=== PATIENT | female | born 1955 | race Caucasian/White ===

== ENCOUNTER 2021-12-28 08:33 | Outpatient (CLI) | payer MEDICARE, BC, SELFPAY ==
[2021-12-28 13:41] LABS: Albumin* 4.6 g/dL (3.3-5.0)
[2021-12-28 13:44] LABS: Alanine Aminotransferase* 23 U/L (4-35); Alkaline Phosphatase* 109 U/L (40-150); Aspartate Amino Transferase* 28 U/L (12-35); Bilirubin Direct* 0.3 mg/dL (0.0-0.5); Bilirubin Total* 0.7 mg/dL (0.1-1.5); Total Protein* 7.5 g/dL (6.0-8.3)
[2021-12-28 13:59] LABS: Creatinine Urine 23.9 mg/dL
[2021-12-28 14:02] LABS: Microalbumin Creatinine Ratio 40 mg/g (0-30); Microalbumin Urine < 1 mg/dL
== END 2021-12-28 08:34 | disposition home or self-care (01) ==
PROVIDERS: PCP Physician Assistant Medical; Visit Provider Physician Assistant Medical
DX: I10 Essential (primary) hypertension (principal); R53.83 Other fatigue; R82.998 Other abnormal findings in urine; F41.9 Anxiety disorder, unspecified; E78.5 Hyperlipidemia, unspecified
CPT/HCPCS: 80076; 82043; 82570; 84443

== ENCOUNTER 2022-06-07 10:34 | Outpatient (CLI) | payer MEDICARE, BC, SELFPAY ==
--- NOTE | 2022-06-07 10:45 | CRLHL7_ITS ---
For Patients: As a result of the Cures Act, medical imaging exams and procedure reports are released immediately into your electronic medical record. You may view this report before your referring provider. If you have questions, please contact your health care provider. DIGITAL DIAGNOSTIC BILATERAL MAMMOGRAM USING TOMOSYNTHESIS AND COMPUTER-AIDED DETECTION RIGHT BREAST ULTRASOUND CLINICAL HISTORY: RIGHT breast lump. COMPARISON: None TECHNIQUE: Digital BILATERAL mammogram in four projections. Tomosynthesis and CAD utilized. Real-time ultrasound imaging of RIGHT breast with imaging documentation. BREAST COMPOSITION: There are areas of scattered fibroglandular density. FINDINGS: 3D spot compression CC/MLO mammogram images submitted bilaterally. Spiculated mass within the inferior RIGHT breast near the chest wall. Enlarged RIGHT axillary lymph node. No suspicious masses LEFT breast. Targeted RIGHT breast ultrasound performed. At 6 o`clock 9 cm from the nipple, there is an irregular and spiculated hypoechoic solid mass measuring 1.7 x 1.1 x 2.1 cm. Enlarged RIGHT axillary lymph node is present measuring 1.7 x 1.0 x 1.5 cm. IMPRESSION: Suspicious palpable mass RIGHT breast 6 o`clock 9 cm from the nipple measuring 2.1 cm. Suspicious enlarged RIGHT axillary lymph node measuring 1.7 cm. RECOMMENDATIONS: Ultrasound-guided core needle biopsy of both lesions is recommended. BI-RADS Category 5: Highly suggestive of malignancy. Results and recommendations discussed with the patient. A lay language report of this examination will be provided to the patient. Dictated by Moses Calzada MD @ 06/07/2022 11:39:40 AM jj/Dictated by: Moses Calzada MD @ 06/07/2022 11:39:00 AM (Electronically Signed)
--- NOTE | 2022-06-07 11:15 | CRLHL7_ITS ---
For Patients: As a result of the Cures Act, medical imaging exams and procedure reports are released immediately into your electronic medical record. You may view this report before your referring provider. If you have questions, please contact your health care provider. PLEASE SEE DIGITAL DIAGNOSTIC BILATERAL MAMMOGRAM PERFORMED SAME DAY CRL:duncan song/Dictated by: Moses Calzada MD @ 06/07/2022 11:39:00 AM (Electronically Signed)
== END 2022-06-07 10:35 | disposition home or self-care (01) ==
LOC: MAMMO 10:36
PROVIDERS: PCP Physician Assistant Medical; Visit Provider Emergency Medicine
DX: N63.15 Unspecified lump in the right breast, overlapping quadrants (principal)
CPT/HCPCS: 76642; 77066; G0279

== ENCOUNTER 2022-06-11 10:00 | Outpatient (CLI) | payer MEDICARE, BC, SELFPAY ==
--- NOTE | 2022-06-11 10:15 | CRLHL7_ITS ---
For Patients: As a result of the Century Cures Act, medical imaging exams and procedure reports are released immediately into your electronic medical record. You may view this report before your referring provider. If you have questions, please contact your health care provider. ULTRASOUND-GUIDED BREAST BIOPSY AND POST-BIOPSY DIGITAL MAMMOGRAM FOR BIOPSY MARKER PLACEMENT CLINICAL HISTORY: Suspicious RIGHT breast mass. COMPARISON STUDIES: 06/07/2022. TECHNIQUE: Real-time ultrasound with image documentation was used for targeting the breast lesion. Core biopsy specimens were obtained using a vacuum assisted needle device with a 10 gauge biopsy needle. Post-biopsy CC and ML digital mammograms were obtained to document position of the biopsy marker. CONSENT and TIME OUT: The procedure, risks, and alternatives were explained to the patient and a consent was signed. [place] Protocol was followed including pre-procedure verification that relevant information/documentation was available, reviewed and properly matched to the patient; consent accurate and complete; and equipment and supplies available. Time Out was conducted just prior to starting procedure to verify the four required elements: patient identity, correct side/site marked (if applicable), procedure, relevant images/results properly labeled and displayed (if applicable). PROCEDURE: The patient was positioned supine on the ultrasound table. The breast was prepped with ChloraPrep. 8 cc of 1 percent lidocaine was used for local anesthesia. Core samples were obtained. A sterile metal biopsy clip was placed percutaneously to jorge luis the lesion position within the breast. The specimens were placed in 10% formalin and sent to the pathology department. Pressure was held on the biopsy site until all bleeding subsided. The skin incision was closed with Steri-Strips. An ice pack was positioned over the biopsy site. Post-biopsy instructions were reviewed with the patient, and a written copy was given to her. LATERALITY: RIGHT breast. LESION: Spiculated irregular solid mass measuring 2.2 x 1.1 x 2.4 cm at 6 o`clock 9 cm from the nipple. SUSPICION FOR MALIGNANCY: High. NUMBER OF SAMPLES: 5. BIOPSY CLIP SHAPE: Oval. PROXIMITY OF CLIP TO TARGET: Within the lesion. IMPRESSION: Ultrasound-guided breast biopsy. When the pathology report is available, an addendum to this report will be made. ACR not applicable Dictated by Moses Calzada MD @ 06/11/2022 11:41:28 AM/harish MADIHA/Dictated by: Moses Calzada MD @ 06/11/2022 11:41:00 AM ----ADDENDUM---- Addendum: The final pathologic diagnosis is invasive ductal carcinoma with micropapillary features, Cambridge grade III of III, Cambridge score 8 of 9. A RIGHT axillary lymph node was also biopsied demonstrating metastatic carcinoma from the breast primary. Dictated by: Freddy Vergara MD @06/15/2022 10:47:26 AM Signed by:?Freddy Vergara MD @06/15/2022 11:37:30 AM (Electronically Signed)
--- NOTE | 2022-06-11 11:00 | CRLHL7_ITS ---
For Patients: As a result of the Century Cures Act, medical imaging exams and procedure reports are released immediately into your electronic medical record. You may view this report before your referring provider. If you have questions, please contact your health care provider. PLEASE SEE RIGHT ULTRASOUND-GUIDED BIOPSY OF SAME DAY. CRL:harish MADIHA/Dictated by: Moses Calzada MD @ 06/11/2022 11:41:00 AM (Electronically Signed)
--- NOTE | 2022-06-11 11:15 | CRLHL7_ITS ---
For Patients: As a result of the Century Cures Act, medical imaging exams and procedure reports are released immediately into your electronic medical record. You may view this report before your referring provider. If you have questions, please contact your health care provider. ULTRASOUND-GUIDED RIGHT AXILLARY LYMPH NODE BIOPSY CLINICAL HISTORY: Suspicious right axillary lymph node in the setting of a suspicious right breast mass. COMPARISON STUDIES: 06/07/2022 TECHNIQUE: Real-time ultrasound with image documentation was used for targeting the right axillary lesion. Core biopsy specimens were obtained using an automated gun with a 18-gauge biopsy needle. CONSENT and TIME OUT: The procedure, risks, and alternatives were explained to the patient and a consent was signed. [place] Protocol was followed including pre-procedure verification that relevant information/documentation was available, reviewed and properly matched to the patient; consent accurate and complete; and equipment and supplies available. Time Out was conducted just prior to starting procedure to verify the four required elements: patient identity, correct side/site marked (if applicable), procedure, relevant images/results properly labeled and displayed (if applicable). PROCEDURE: The patient was positioned supine on the ultrasound table. The right axilla was prepped with ChloraPrep. 8 cc of 1 percent lidocaine was used for local anesthesia. Core samples were obtained. A sterile metal biopsy clip was placed percutaneously to jorge luis the lesion position within the right axilla. The specimens were placed in 10% formalin and sent to the pathology department. Pressure was held on the biopsy site until all bleeding subsided. The skin incision was closed with Steri-Strips. An ice pack was positioned over the biopsy site. Post-biopsy instructions were reviewed with the patient, and a written copy was given to her. LATERALITY: Right axilla LESION: Enlarged hypoechoic lymph node measuring 1.7 x 1.0 x 1.5 cm with a thickened hypoechoic cortex. SUSPICION FOR MALIGNANCY: High NUMBER OF SAMPLES: 5 BIOPSY CLIP SHAPE: Oval PROXIMITY OF CLIP TO TARGET: Within the lesion IMPRESSION: Ultrasound-guided right axillary lymph node biopsy. When the pathology report is available, an addendum to this report will be made. ACR not applicable Dictated by Moses Hairston MD @ 06/11/2022 11:43:58 AM ----ADDENDUM---- MOSES HAIRSTON DICTATION 04/29/2023, 8:51 AM:?? Pathology is consistent with invasive ductal carcinoma.? This is concordant.? Appropriate action recommended.? (Electronically Signed)
== END 2022-06-11 10:01 | disposition home or self-care (01) ==
LOC: US 10:01
PROVIDERS: PCP Physician Assistant Medical; Visit Provider Emergency Medicine
DX: N63.10 Unspecified lump in the right breast, unspecified quadrant (principal); C50.911 Malignant neoplasm of unspecified site of right female breast; R92.8 Other abnormal and inconclusive findings on diagnostic imaging of breast
CPT/HCPCS: 19083; 38505; 76942; 77065; 88305; 88360; 88361; A4648; A4649

== ENCOUNTER 2022-06-17 12:44 | Outpatient (CLI) | payer MEDICARE, BC, SELFPAY ==
--- NOTE | 2022-06-17 13:00 | CRLHL7_ITS ---
For Patients: As a result of the Century Cures Act, medical imaging exams and procedure reports are released immediately into your electronic medical record. You may view this report before your referring provider. If you have questions, please contact your health care provider. BILATERAL BREAST MRI WITHOUT AND WITH GADOLINIUM, 06/17/2022 CLINICAL HISTORY: 66-year-old woman with a history of RIGHT breast IDC grade III. She presented with a palpable mass in the RIGHT breast and underwent RIGHT breast ultrasound-guided biopsy and RIGHT axillary lymph node biopsy showing metastatic disease. INDICATION FOR BREAST MRI: Staging of newly diagnosed breast cancer and screening of contralateral breast. Regional lymph nodes will also be assessed. COMPARISON STUDIES: Mammogram and ultrasound 06/07/2022. Ultrasound-guided biopsy 06/11/2022. CONTRAST: 15 cc Dotarem. TECHNIQUE: The patient was positioned prone using a breast coil. Multiple imaging sequences were obtained using 1-1.5 mm thick slices with no gap. The image sequences include T2-weighted STIR in the axial plane, T1-weighted nonfat-saturated gradient echo in the axial plane, pre- and post-contrast T1-weighted FLASH 3D with fat suppression in the axial plane, and T1-weighted FLASH high-resolution 3D with fat suppression in the sagittal plane. Image post-processing was performed on a [employer] [facility] [employer] workstation. Complex 3D rendering including maximum intensity projections (MIPS) and volumetric renderings were obtained to optimize visualization of the extent of pathology and relationship to the nipple, skin, and chest wall. This aids in determining feasibility of breast conservation surgery. Subtraction, multiplanar reconstruction, mean curve determination, and angiogenesis mapping were also performed. The study was technically adequate. FINDINGS: Amount of Fibroglandular Tissue: Scattered fibroglandular tissue. Breast Background Enhancement: Mild. RIGHT Breast: 6 o`clock, posterior depth irregular mass enhancement measuring 2.3 x 1.9 x 1.3 cm. This corresponds to the biopsy-proven malignancy. The mass is at the inframammary fold region and closely abuts/may involve the dermis. No evidence for chest wall involvement. No suspicious enhancement for malignancy elsewhere RIGHT breast. LEFT Breast: No suspicious enhancement for malignancy. Lymph Nodes: There are three clumped lymph nodes in the anterior RIGHT axillary region with thickened cortices, one of which was biopsied positive for metastatic disease. No suspicious lymph nodes LEFT axilla. IMPRESSIONS AND RECOMMENDATIONS: 1. Irregular mass enhancement RIGHT breast 6 o`clock at the inframammary fold region measures 2.3 cm in greatest dimension and may involve dermis. No evidence for malignancy elsewhere RIGHT breast or contralateral LEFT breast. 2. Known RIGHT axillary metastatic involvement. 3. Surgical/oncologic management directed by Dr. Lowery. BI-RADS Category 6: Known Biopsy-Proven Malignancy Nga Robin M.D. Breast/Body Radiologist [employer] Transcribed: 9:16 a.m. [email or web address] jj/Dictated by: Nga Robin MD @ 06/18/2022 9:17:00 AM (Electronically Signed)
== END 2022-06-17 12:45 | disposition home or self-care (01) ==
PROVIDERS: PCP Emergency Medicine; Visit Provider Surgery
DX: C50.911 Malignant neoplasm of unspecified site of right female breast (principal); C77.3 Secondary and unspecified malignant neoplasm of axilla and upper limb lymph nodes
CPT/HCPCS: 77049; A9575

== ENCOUNTER 2022-06-30 09:22 | Outpatient (CLI) | payer MEDICARE, BC, SELFPAY ==
[2022-06-30 13:35] LABS: Chloride* 109 mmol/L (96-114); Potassium* 4.7 mmol/L (3.6-5.1); Sodium* 143 mmol/L (135-149)
[2022-06-30 13:38] LABS: Blood Urea Nitrogen* 14 mg/dL (7-30); Carbon Dioxide* 28 mmol/L (20-32); Creatinine* 0.8 mg/dL (0.5-1.5); Estimated Glomerular Filt Rate 81 ml/min; Glucose* 111 mg/dL (60-115)
[2022-06-30 13:39] LABS: Calcium* 9.7 mg/dL (8.4-10.6)
== END 2022-06-30 09:23 | disposition home or self-care (01) ==
LOC: LKVREF 09:23
PROVIDERS: PCP Emergency Medicine; Visit Provider Emergency Medicine
DX: Z01.818 Encounter for other preprocedural examination (principal)
CPT/HCPCS: 80048

== ENCOUNTER 2022-07-02 10:37 | Outpatient (CLI) | payer MEDICARE, BC, SELFPAY | END 2022-07-02 10:38 | disposition home or self-care (01) | PROVIDERS: PCP Emergency Medicine; Visit Provider Nurse Practitioner Family | DX: I10 Essential (primary) hypertension (principal) | CPT/HCPCS: 93306 ==

== ENCOUNTER 2022-07-05 07:44 | Day surgery (SDC) | payer MEDICARE, BC, SELFPAY ==
--- NOTE | 2022-07-01 10:21 | ONC.NURNOTE ---
Received phone call from PET in [place] asking about how quickly patients PET scan needs to be read. Discussed patient with [facility] and it was determined and scan needs to be read STAT so that results can be discussed with Dr. Palacios on Tuesday to come up with a treatment plan. PET was notified, they will have sent by 0800 on 07/05/2022.
[2022-07-05] MEDS: LACTATED RINGERS 1000 ML 1,000 ML 100 ML IV ×2 (07:45→11:29)
[2022-07-05 07:58] VITALS: BMI 33.0
[2022-07-05 08:07] VITALS: BP 139/82; PULSE 78; RESP 18; TEMP 36.9; O2SAT 97
[2022-07-05] MEDS: SODIUM CHLORIDE 0.9 % (FLUSH) 10 ML SYRINGE IVF (08:24)
--- NOTE | 2022-07-05 09:15 | CRLHL7_ITS ---
For Patients: As a result of the Century Cures Act, medical imaging exams and procedure reports are released immediately into your electronic medical record. You may view this report before your referring provider. If you have questions, please contact your health care provider. Indication: Intraop Nina-Cath insertion Technique: Two fluoroscopic images of the chest. Fluoroscopic time 1 minute 32.6 seconds. IMPRESSION: Fluoroscopic guidance for Port-A-Cath placement. Dictated by Moses Calzada MD @ 07/05/2022 11:24:03 AM (Electronically Signed)
--- NOTE | 2022-07-05 09:19 | CRLHL7_ITS ---
For Patients: As a result of the Century Cures Act, medical imaging exams and procedure reports are released immediately into your electronic medical record. You may view this report before your referring provider. If you have questions, please contact your health care provider. Indication: post-op Nina-Cath Technique: Chest one view IMPRESSION: Right-sided Port-A-Cath is present in the mid SVC. No pneumothorax. Dictated by Moses Calzada MD @ 07/05/2022 11:35:40 AM (Electronically Signed)
[2022-07-05] MEDS: CEFAZOLIN 2 GM INJ IVP (09:30)
[2022-07-05] MEDS: BUPIVACAINE 0.25% 30 ML INJECTION (09:50)
[2022-07-05] MEDS: 0.9% SODIUM CHL 50 ML VIAL INJECTION (10:00)
[2022-07-05] MEDS: HEPARIN 500 UNIT/5 ML SYRINGE IVF (10:15)
--- NOTE | 2022-07-05 10:31 | P.GSOP_ITS ---
Operative Note Date of procedure: 07/05/22 Pre-op diagnosis: 1. Metastatic right breast invasive ductal carcinoma. Post-op diagnosis: Same Type of Procedure: 1. Right internal jugular Port-A-Cath placement under ultrasound and fluoroscopy guidance. 2. Unsuccessful attempt at placing left internal jugular Port-A-Cath. Indications: 66-year-old female was seen in clinic with a newly diagnosed right breast invasive ductal carcinoma with metastases to the right axillary lymph node. Patient's tumor was grade 3 of 3 with angiolymphatic invasion and micropapillary features, ER/ AL positive and HER2 positive. Neoadjuvant chemotherapy was recommended, and patient was referred to surgery for Port-A-Cath placement. Patient had a partial thyroidectomy but no other procedures done on her neck. The procedure was discussed in detail. The risks associated procedure including infection, bleeding, and pneumothorax were discussed with the patient, and she agreed to proceed. Procedure Description: After discussing the risks and benefits of the procedure, the patient signed informed consent.? The operative site was marked and the patient was brought to the operating room and placed on the operating table in supine position.? Care was taken to pad the patient's pressure points.?? The patient was then sedatred by anesthesia.?? The operative site was then prepped and draped in the usual sterile fashion.? A time-out was then performed. Ultrasound was brought on to the field and The left internal jugular vein was assessed. the vein was found to be somewhat small and intimately adherent to the carotid artery. local anesthetic was injected at the proposed surgical site, the skin was incised with a scalpel. The needle was advanced into the left internal jugular vein but the wire did not thread easily. After at least 3 attempts at placing the wire, fluoroscopy was brought onto the field and the w ana was noted to be coiled in the left neck. With fluoroscopy guidance I was not able to advance the wire into the chest. I elected to proceed with Port-A-Cath placement on the right side. Ultrasound was then brought onto the field and the right internal jugular vein was identified. This was found to be large and easily compressible. The base of the neck directly overlying the internal jugular vein was then anesthetized with 1% lidocaine and 0.25% Marcaine mixture, and an introducer needle was inserted into the internal jugular vein using ultrasound guidance. Entry into the vein was confirmed by the presence of dark, nonpulsatile blood. A guide wire was advanced through the needle. The introducer needle was removed, leaving the wire in place. Fluoroscopy was brought onto the field and used to confirm the passage of the wire through the superior vena cava and into the Right ventricle. Lidocaine was then used to infiltrate the port skin site, along with the proposed tunneling tract. A 3 cm incision was made at the site of the port pocket and subcutaneous tissue was dissected down using electrocautery. Subcutaneous pocket was created with blunt dissection and electrocautery. The catheter was advanced through the subcutaneous tissue using a tunneling trocar, exiting the incision at the base of the neck. The trocar was then disconnected. Fluoroscopy was again brought on to the field and the internal jugular vein and adjacent subcutaneous tissue was dilated with a pre-split introducer sheath in place. The wire was removed and the catheter was inserted into the introducer sheath. As the catheter was advanced, the sheath was split and divided, removing the sheath as the catheter was advanced into place. Fluoroscopy was again brought on to the field and the catheter position was examined. The entire course of the catheter was then viewed, and catheter was pulled back under direct visualization to ensure that the tip is in the SVC. The port was connected to the catheter tip and placed into previously created pocket. Prolene was used to place anchoring port sutures and the port was then secured in the pocket. The flow through the catheter was checked with a syringe, and found to be excellent. Both incisions at the base of the neck was then closed with a single interrupted 4-0 monocryl stitch and dressed with a Steri-Strip and a sterile bandage. Subdermal layer at the port insertion site was re-approximated with interrupted 3-0 vicryl stitches and skin over the port was closed with 4-0 monocryl using subcuticular stitch. Roberts needle was inserted through the skin into the port and the port was flushed with heparinized saline. The needle was then removed.Steri strips, Telfa and Tegaderm was applied over the incision. The patient was then roused and brought to same day surgery in satisfactory condition. Sponge and needle counts were correct at the end of the procedure. Post procedure CXR was ordered to be done in same day surgery. ? Sterile dressings were then applied. ? The patient was then woken and transported to the recovery area in stable condition. ? The patient tolerated the procedure well. Anesthesia: MAC and local Surgeon: Brian Lowery MD Condition: stable Disposition: same day
--- NOTE | 2022-07-05 10:40 | W.ANESCHARGE ---
Anesthesia Charges Start Date/Time Anesthesia Start Date: 07/05/22 Anesthesia Start Time: 09:22 Stop Date/Time Anesthesia Stop Date: 07/05/22 Anesthesia Stop Time: 10:34
[2022-07-05 10:42] VITALS: BP 116/69; PULSE 78; RESP 18; TEMP 36.4; O2SAT 98
[2022-07-05 10:59] VITALS: BP 116/67; PULSE 72; RESP 18; O2SAT 98
--- NOTE | 2022-07-05 11:01 | W.ANESCHARGE ---
Anesthesia Charges Start Date/Time Anesthesia Start Date: 07/05/22 Anesthesia Start Time: 09:22 Stop Date/Time Anesthesia Stop Date: 07/05/22 Anesthesia Stop Time: 10:34
--- NOTE | 2022-07-05 11:34 | SUR.PHASEII ---
Dr. Lowery noted xray to be good, pt may now eat
== END 2022-07-05 11:30 | disposition home or self-care (01) ==
PROVIDERS: PCP Emergency Medicine; Visit Provider Surgery
PROC: (CPT 36561; principal; 2022-07-05 09:15)
DX: Z45.2 Encounter for adjustment and management of vascular access device (principal); C50.911 Malignant neoplasm of unspecified site of right female breast; C77.3 Secondary and unspecified malignant neoplasm of axilla and upper limb lymph nodes; Z17.0 Estrogen receptor positive status [ER+]
CPT/HCPCS: 36561; 00532; 71045; 76000; C1788; J0690; J1642; J2250; J2704; J3010; J3490; J7120

== ENCOUNTER 2022-08-02 10:33 | Outpatient (CLI) | payer MEDICARE, BC, SELFPAY | END 2022-08-02 10:34 | disposition home or self-care (01) | LOC: NFLDREF 08-04 11:32 | PROVIDERS: PCP Emergency Medicine; Referring Provider Emergency Medicine; Visit Provider Internal Medicine Hematology & Oncology | DX: R19.7 Diarrhea, unspecified (principal) | CPT/HCPCS: 87493 ==

== ENCOUNTER 2022-08-27 12:44 | Outpatient (CLI) | payer MEDICARE, BC, SELFPAY | END 2022-08-27 12:45 | disposition home or self-care (01) | PROVIDERS: PCP Emergency Medicine; Visit Provider Physician Assistant | DX: Z51.81 Encounter for therapeutic drug level monitoring (principal); Z79.899 Other long term (current) drug therapy; C50.912 Malignant neoplasm of unspecified site of left female breast | CPT/HCPCS: 93306 ==

== ENCOUNTER 2022-11-18 09:39 | Day surgery (SDC) | payer MEDICARE, BC, SELFPAY ==
[2022-11-18 10:30] VITALS: BP 141/87; PULSE 91; RESP 16; O2SAT 99; BMI 26.4
[2022-11-18] MEDS: SODIUM CHLORIDE 0.9 % (FLUSH) 10 ML SYRINGE IVF (10:30)
--- NOTE | 2022-11-18 11:00 | CRLHL7_ITS ---
For Patients: As a result of the Century Cures Act, medical imaging exams and procedure reports are released immediately into your electronic medical record. You may view this report before your referring provider. If you have questions, please contact your health care provider. BREAST WIRE LOCALIZATION USING ULTRASOUND GUIDANCE CLINICAL HISTORY: RIGHT breast cancer, status post adjuvant chemotherapy, now presents for lumpectomy. LATERALITY: RIGHT breast. LESION: Hypoechoic mass containing clip 6 o`clock RIGHT breast. LOCALIZATION WIRE: [place] hookwire. TECHNIQUE: The localization wire was placed using real-time ultrasound guidance with image documentation. Cranial-caudal and medial-lateral digital mammograms were obtained after localization wire placement. CONSENT and TIME OUT: The procedure, risks, and alternatives were explained to the patient and a consent was signed. [place] Protocol was followed including pre-procedure verification that relevant information/documentation was available, reviewed and properly matched to the patient; consent accurate and complete; and equipment and supplies available. Time Out was conducted just prior to starting procedure to verify the four required elements: patient identity, correct side/site marked (if applicable), procedure, relevant images/results properly labeled and displayed (if applicable). PROCEDURE: The skin was prepped with ChloraPrep and 8 cc of 1% lidocaine was injected for local anesthesia. The localization wire was placed within or near the targeted breast lesion using ultrasound guidance. The patient tolerated the procedure well. PROXIMITY OF WIRE TO LESION: Within the lesion. IMPRESSION: Successful breast wire localization. ACR not applicable Dictated by Moses Calzada MD @ 11/18/2022 1:04:45 PM jj/Dictated by: Moses Calzada MD @ 11/18/2022 1:04:00 PM (Electronically Signed)
--- NOTE | 2022-11-18 11:00 | CRLHL7_ITS ---
For Patients: As a result of the 21st Century Cures Act, medical imaging exams and procedure reports are released immediately into your electronic medical record. You may view this report before your referring provider. If you have questions, please contact your health care provider. INDICATION: 67-year-old female. Right-sided breast cancer. Injection for sentinel lymph node scintigraphy. PROCEDURE: Informed consent was obtained by the on-site staff. The benefits and risks of the procedure were discussed with the patient. The patient agreed to proceed. Utilizing sterile technique, 780 microcuries of technetium-filtered sulfur colloid was injected intradermally superolateral to the right nipple-areolar complex. The patient tolerated the injection well. No immediate complications documented. No subsequent imaging. IMPRESSION: Technically successful right breast injection for sentinel lymph node scintigraphy. Dictated by Freddy Vergara MD @ 11/18/2022 3:19:17 PM (Electronically Signed)
[2022-11-18 11:02] LABS: Potassium* 3.8 mmol/L (3.6-5.1)
--- NOTE | 2022-11-18 11:15 | CRLHL7_ITS ---
For Patients: As a result of the Cures Act, medical imaging exams and procedure reports are released immediately into your electronic medical record. You may view this report before your referring provider. If you have questions, please contact your health care provider. RIGHT AXILLARY LYMPH NODE WIRE LOCALIZATION USING ULTRASOUND GUIDANCE CLINICAL HISTORY: RIGHT breast cancer, status post adjuvant chemotherapy. Presents for surgical treatment. LATERALITY: RIGHT axilla. LESION: Biopsy-proven RIGHT axillary lymph node containing clip. LOCALIZATION WIRE: [place] hookwire. TECHNIQUE: The localization wire was placed using real-time ultrasound guidance with image documentation. Cranial-caudal and medial-lateral digital mammograms were obtained after localization wire placement. CONSENT and TIME OUT: The procedure, risks, and alternatives were explained to the patient and a consent was signed. [place] Protocol was followed including pre-procedure verification that relevant information/documentation was available, reviewed and properly matched to the patient; consent accurate and complete; and equipment and supplies available. Time Out was conducted just prior to starting procedure to verify the four required elements: patient identity, correct side/site marked (if applicable), procedure, relevant images/results properly labeled and displayed (if applicable). PROCEDURE: The skin was prepped with ChloraPrep and 6 cc of 1% lidocaine was injected for local anesthesia. The localization wire was placed within or near the targeted right axillary lymph node lesion using ultrasound guidance. The patient tolerated the procedure well. PROXIMITY OF WIRE TO LESION: Within the lesion. IMPRESSION: Successful RIGHT axillary lymph node wire localization. ACR not applicable Dictated by Moses Calzada MD @ 11/18/2022 1:23:26 PM jj/Dictated by: Moses Calzada MD @ 11/18/2022 1:23:00 PM (Electronically Signed)
--- NOTE | 2022-11-18 11:37 | W.ANESCHARGE ---
Anesthesia Charges Start Date/Time Anesthesia Start Date: 11/18/22 Anesthesia Start Time: 12:02 Stop Date/Time Anesthesia Stop Date: 11/18/22 Anesthesia Stop Time: 14:35
[2022-11-18] MEDS: LACTATED RINGERS 1000 ML 1,000 ML 100 ML IV (11:52)
--- NOTE | 2022-11-18 12:00 | CRLHL7_ITS ---
For Patients: As a result of the Cures Act, medical imaging exams and procedure reports are released immediately into your electronic medical record. You may view this report before your referring provider. If you have questions, please contact your health care provider. PLEASE SEE RIGHT BREAST AND RIGHT LYMPH NODE WIRE LOCALIZATIONS PERFORMED SAME DAY CRL:duncan song/Dictated by: Moses Calzada MD @ 11/18/2022 1:04:00 PM (Electronically Signed)
[2022-11-18] MEDS: ISOSULFAN BLUE 5 ML VIAL INJECTION (12:08)
[2022-11-18] MEDS: CEFAZOLIN 2 GM INJ IVP (12:12)
[2022-11-18] MEDS: BUPIVACAINE 0.25% 30 ML INJECTION (12:22)
--- NOTE | 2022-11-18 12:30 | MM_ITS ---
Patient: LYNNETTE GABRIEL Facility:?[facility] Patient ID:?[id number] Site Patient ID:?[id number]. Site :?[id number] Study:?XRay-Breast Right SPECIMEN-11/18/2022 1:29:00 PM Ordering Physician:?Sebastián Torres Final Report: ----- ADDENDUM ----- CLINICAL HISTORY: Lumpectomy COMPARISON: Earlier today FINDINGS: Specimen contains the biopsied mass, the biopsy clip and the localization wire. IMPRESSION: Specimen contains the biopsied mass and clip/wire. ACR not applicable. Dictated by Moses Calzada MD @ Nov 18 2022 2:22PM Signed by:?Moses Calzada MD @11/18/2022 8:34:30 PM
--- NOTE | 2022-11-18 12:48 | MM_ITS ---
Patient: LYNNETTE GABRIEL Facility:?[facility] Patient ID:?[id number] Site Patient ID:?[id number]. Site :?[id number] Study:?XRay-Breast Right SPECIMEN (NODE)-11/18/2022 1:31:35 PM Ordering Physician:Virgen Torres Final Report: ----- ADDENDUM ----- CLINICAL HISTORY: Right axillary lymph node dissection COMPARISON: Earlier today FINDINGS: Specimen contains the biopsied lymph node along with the biopsy clip and localization wire. IMPRESSION: Specimen contains the biopsied lesion, clip and wire. ACR not applicable. Dictated by Moses Calzada MD @ Nov 18 2022 2:22PM Signed by:?Moses Calzada MD @11/18/2022 8:36:13 PM (Electronic Signature)
--- NOTE | 2022-11-18 14:29 | P.GSOP_ITS ---
Operative Note Date of procedure: 11/18/22 Pre-op diagnosis: 1. 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 Post-op diagnosis: Same Type of Procedure: 1. Right wire localized lumpectomy. 2. Right axillary sentinel node biopsy. 3. Excision of wire localized previously biopsied right axillary lymph node. Indications: 67-year-old female was seen in clinic after she completed neoadjuvant chemotherapy for metastatic right breast invasive ductal carcinoma. Her initial images showed 1.7 x 2.1 cm tumor in the right breast at 6:00 9 cm from the nipple. Pathology showed the tumor to have micro papillary features and was grade 3 of 3 with angiolymphatic invasion and grade 3 DCIS, ER/ MI positive and HER2 positive. Patient also had multiple enlarged right axillary lymph nodes and biopsy of one of the nodes came back with metastases to the lymph node. Patient then underwent neoadjuvant chemotherapy. She had a great response with no tumor palpable in her breast and no palpable right axillary lymphadenopathy. Given her history and her clinical exam, surgical options of lumpectomy versus mastectomy were discussed with the patient, and patient elected to proceed with lumpectomy. The procedure was discussed in detail. The risks associated procedure including infection, bleeding, the need for additional re-excision is, lymphedema, and possible axillary node dissection were all discussed with the patient, and she agreed to proceed. Procedure Description: Radioactive tracer for sentinel node biopsy was personally injected by me in same-day surgery at least 1 hour prior to patient's procedure. After discussing the risks and benefits of the procedure, the patient signed informed consent.? The operative site was marked and the patient was brought to the operating room and placed on the operating table in supine position.? Care was taken to pad the patient's pressure points.?? The patient was then sedated by anesthesia.?? The operative site was then prepped and draped in the usual sterile fashion.? A time-out was then performed. Pre-operative mammographic films taken after wire localization were reviewed. The mixture of Lidocaine and Marcaine was used as local anesthetic and was injected at the site of the incision. The lumpectomy was performed by making an in from mammary horizontal incision at 6:00 a.m.. This was done with a scalpel. Dermis and subcutaneous fat were divided with cautery.?Subcutaneous skin flaps were developed until the wire was encountered.? The wire was pulled into the surgical field. The breast tissue around the wire was then excised in a cylinder like fashion following the course of the wire using cautery.? This was done with frequent palpation of the wire.? The specimen was then excised making sure that the wire was still in the specimen. Margins of the specimen were inked and the specimen was then sent to mammography first to confirm presence of the wire and the clip and to pathology afterwards for gross margins. Mammography confirmed presence of the clip. Pathologist reviewed the specimen and the tumor Bed was identified with no residual tumor. All margins were negative with the closest posterior margin being 1 mm. We then proceeded with the right axillary sentinel node biopsy And excision of the right axillary wire localized node. Four ml (milliliters) of Lymphazurin blue was personally injected by de near The right nipple for sentinel lymph node identification. A [place] counter was brought onto the field in the Right axilla to identify the best area for the sentinel node biopsy. An oblique skin incision was then made over that area. Subcutaneous tissues were dissected with electrocautery. A green lymph node was identified and appeared to have radioactive signal. this node was also the same as wire localized node. The node was then removed with the wire and sent to mammography to confirm presence of the clip. This was confirmed. This was considered to be sentinel lymph node #1 with a count of 825. Axillary syl tissue was examined again with the [place] counter and Additional nodes that were considered sentinel lymph nodes were identified and excised. A total of 7 sentinel lymph nodes were excised with cautery( The first node considered to be wire localized node with a count of 825). The sentinel nodes had counter numbers of 800, 792, 805, 321, to 66, and 205. The last sentinel lymph node was minimally enlarged but was soft to palpation. Additional lymphoid tissue that was excised during this dissection was removed but had no radioactive signal. This was sent to pathology in permanent section as additional syl ti ssue. pathologist reviewed all the nodes with frozen section and all nodes appeared to be benign. Given the number of sentinel nodes identified and removed, I elected to place right axillary drain. Local anesthetic was injected inferior to the axillary incision. The skin incision was made with a scalpel. A 15 round Jarrett drain was then advanced through this stab incision into the right axilla. The drain was secured in place with nylon. The right axillary incision was then irrigated with normal saline. Additional local anesthetic was injected at the surgical site. The deltopectoral fascia was then reapproximated with interrupted Vicryl sutures. Dermis was reapproximated with interrupted Vicryl sutures. The skin was closed with a running 4-0 Monocryl stitch. The inframammary incision was then examined and hemostasis was achieved with cautery. Vascular clips were placed in the breast tissue to jorge luis the lumpectomy cavity. The incision was then reapproximated with Vicryl sutures. The skin was closed with a running 4-0 Monocryl stitch. Sterile dressings were then applied. ? The patient was then woken and transported to the recovery area in stable condition. ? The patient tolerated the procedure well. Findings: Lumpectomy cavity was identified with no residual tumor. Multiple sentinel nodes were removed and were negative on frozen section. Anesthesia: MAC and local Surgeon: Brian Lowery MD Estimated blood loss (mL): 10 Additional Specimen Information: 1. Right lumpectomy. 2. [place] lymph node 1. 3. [place] lymph node 2. 4. [place] lymph node 3. 5. [place] lymph node 4. 6. [place] lymph node 5. 7. [place] lymph node 6. 8. [place] lymph node 7. 9. Additional right axillary lymphoid tissue. Condition: stable Disposition: same day
[2022-11-18 14:33] VITALS: BP 122/71; PULSE 67; RESP 16; TEMP 36.6; O2SAT 94
--- NOTE | 2022-11-18 14:41 | W.ANESCHARGE ---
Anesthesia Charges Start Date/Time Anesthesia Start Date: 11/18/22 Anesthesia Start Time: 12:02 Stop Date/Time Anesthesia Stop Date: 11/18/22 Anesthesia Stop Time: 14:35
[2022-11-18 14:45] VITALS: BP 125/70; PULSE 50; RESP 15; O2SAT 95
[2022-11-18 15:00] VITALS: BP 124/73; PULSE 46; RESP 16; O2SAT 94
[2022-11-18 15:15] VITALS: BP 123/75; PULSE 52; RESP 16; O2SAT 95
[2022-11-18 15:30] VITALS: BP 124/76; PULSE 55; RESP 16; TEMP 36.5; O2SAT 95
== END 2022-11-18 15:50 | disposition home or self-care (01) ==
PROVIDERS: PCP Emergency Medicine; Visit Provider Surgery
PROC: (CPT 19302; principal; 2022-11-18 12:30)
DX: C50.811 Malignant neoplasm of overlapping sites of right female breast (principal); C77.3 Secondary and unspecified malignant neoplasm of axilla and upper limb lymph nodes; Z17.0 Estrogen receptor positive status [ER+]
CPT/HCPCS: 19302; 01610; 10035; 19285; 36415; 38792; 77065; 84132; 88307; 88341; 88342; A9541; C1769; J0690; J1200; J2250; J2405; J2704; J3010; J3490; J7120

== ENCOUNTER 2022-12-06 08:15 | Outpatient (RCR) | payer MEDICARE, BC, SELFPAY ==
--- NOTE | 2022-07-06 15:57 | ONC.NURNOTE ---
I met with patient and her Yehuda for chemotherapy teaching. We reviewed the contents of the chemotherapy binder. Discussed side effects of treatment as well as what symptoms to report and how to report concerns. Patient declined a social service consultation for a distress score of 7. Patient identified her emotional problems as manageable and feels that they will lessen once treatment starts and she knows what to expect. Shayy states she has a good support system. Consent for chemotherapy obtained. Patient denies any further questions or concerns and verbalizes understanding of plan to start treatment 07/08.
--- NOTE | 2022-07-07 11:47 | URNOTE ---
Request received for authorization for Taxotere ([id number]), Cytoxan (J9070), Herceptin (J9355), Perjeta (J9306), Neulasta (J2506), Carboplatin (J9045). Prior authorization is not required as services are based on medical necessity and follow Medicare guidelines.
[2022-07-08 08:33] VITALS: BP 114/74; PULSE 93; RESP 16; TEMP 36.6; O2SAT 97
--- NOTE | 2022-07-08 08:45 | ONC.NURNOTE ---
Pet CT results reviewed with Dr. Caba, who reviewed with his breast oncologist colleagues, regarding the adrenal gland asymmetry which was determined to be non-specific. Proceed with neoadjuvant chemotherapy as planned. Reviewed with pt and her today at 1st chemo appt.
[2022-07-08 08:53] LABS: Basophils Percent Auto 0.1 % (0.0-3.0); Hematocrit 42.2 % (33.0-51.0); Hemoglobin* 14.9 gm/dL (12.0-16.0); Immature Granulocytes Pct Auto 0.2 %; Lymphocytes Percent Auto 10.2 % (20-44); Mean Corpuscular HGB Conc 35 gm/dL (32-36); Mean Corpuscular Hemoglobin 30 pg (26-34); Mean Corpuscular Volume 86 fL (80-100); Neutrophils Percent Auto 82.5 % (42.0-72.0); Platelet Count* 264 K/uL (140-440); RDW Coefficient of Variation % 12.2 % (11.5-15.5); Red Blood Count 4.92 m/uL (4.00-5.20); White Blood Count* 11.74 K/uL (4.50-11.00)
[2022-07-08 08:54] LABS: Slide Review Reflex No
[2022-07-08 09:05] LABS: Albumin* 4.7 g/dL (3.3-5.0); Chloride* 109 mmol/L (96-114); Sodium* 143 mmol/L (135-149)
[2022-07-08 09:08] LABS: Alanine Aminotransferase* 25 U/L (4-35); Alkaline Phosphatase* 80 U/L (40-150); Aspartate Amino Transferase* 24 U/L (12-35); Bilirubin Total* 0.9 mg/dL (0.1-1.5); Blood Urea Nitrogen* 15 mg/dL (7-30); Carbon Dioxide* 25 mmol/L (20-32); Creatinine* 0.7 mg/dL (0.5-1.5); Estimated Glomerular Filt Rate 95 ml/min; Glucose* 101 mg/dL (60-115); Total Protein* 7.8 g/dL (6.0-8.3)
[2022-07-08 09:09] LABS: Calcium* 9.9 mg/dL (8.4-10.6)
[2022-07-08] MEDS: PALONOSETRON 0.25 MG/5 ML inj IV (09:48)
[2022-07-08] MEDS: dexAMETHasone 10 MG in 0.9 % SODIUM CHLORIDE 100 ml 100 ML 404 MG IVPB (09:48)
[2022-07-08] MEDS: FOSAPREPITANT 150 MG inj 150 MG in 0.9 % SODIUM CHLORIDE 250 ml 250 ML 780 MG IVPB (10:13)
[2022-07-08] MEDS: PERTUZUMAB 840 MG, TUBING SECONDARY 1 EACH in 0.9 % SODIUM CHLORIDE 250 ml 250 ML 278 MG IV (12:36)
--- NOTE | 2022-07-09 09:37 | ONC.NURNOTE ---
Call to patient in follow up to her new start chemotherapy. Patient feels that overall she is doing well. She had a frontal headache last evening which I explained was likely from the anti-nausea medications we gave her. She had a restless night of sleep and reports feeling a bit queasy this morning. She is eating and drinking and taking her anti-nausea medications as recommended. Patient denies any questions or concerns.
--- NOTE | 2022-07-22 17:44 | ONC.NURNOTE ---
Spoke with pt regarding upcoming appts and she reported she's been having difficulty with side effects from chemo. She reports feeling well the first few days after chemo (), then felt poorly beginning Tuesday through this last week, especially nausea and diarrhea. Nausea: Her nausea was persistent the last 9 days despite Compazine TID; she has Zofran at home but was not sure about how to implement. She notes all fluids taste bad, contributing to her nausea, but she feels she has remained hydrated. She reports 3-4 emeses during that week. She is still eating soda crackers regularly. She asks about Ativan, as a nurse her in her family suggested. Reviewed alternating Compazine/Ondansetron; plan to review home antiemetics at upcoming f/u appt. Diarrhea: Pt also reports diarrhea in the same timeframe, noting 6-8 explosive, watery stools/day x ~9 days which has now improved to 1 watery stool/day. She was taking Immodium 2-3 tabs/day the first few days and then ceased, feeling it wasn't helping. Reviewed that she can take more Imodium per day if needed; plan to review home diarrhea management plan at upcoming f/u appt. Rash: Pt reports today having a red patchy rash in her bilateral groin/flank area; it is not itchy. She describes it as giraffe spots in pattern and notes it is a fading red. She thinks in a recent shower she may not have rinsed her soap off fully; reinforced that her skin may be more sensitive while on chemo. She is not usually prone to rashes, so this is new. Pt to monitor and notify us if worsening. Reinforced importance of notifying [facility] of side effects/issues. Pt acknowledges and notes that she wanted to see if she could manage it. Reinforced that there are more options for nausea and bowel management and that we anticipate more effective control of her symptoms. Plan to review with Med Onc next week at visit prior to next cycle.
--- NOTE | 2022-07-23 13:27 | URNOTE ---
Request received for authorization for Emend ([id number]) and Aloxi ([id number]).?Prior authorization is not required?as services are based on medical necessity and follow Medicare guidelines.
[2022-07-29 08:08] LABS: Basophils Percent Auto 0.2 % (0.0-3.0); Hematocrit 37.5 % (33.0-51.0); Hemoglobin* 13.4 gm/dL (12.0-16.0); Immature Granulocytes Pct Auto 0.6 %; Lymphocytes Percent Auto 6.4 % (20-44); Mean Corpuscular HGB Conc 36 gm/dL (32-36); Mean Corpuscular Hemoglobin 31 pg (26-34); Mean Corpuscular Volume 87 fL (80-100); Monocytes Percent Auto 4.9 % (0.0-11.0); Neutrophils Percent Auto 87.9 % (42.0-72.0); Platelet Count* 288 K/uL (140-440); RDW Coefficient of Variation % 13.2 % (11.5-15.5); Red Blood Count 4.31 m/uL (4.00-5.20)
[2022-07-29 08:20] LABS: Slide Review Reflex No
[2022-07-29 08:23] LABS: Albumin* 4.3 g/dL (3.3-5.0); Chloride* 109 mmol/L (96-114); Potassium* 3.7 mmol/L (3.6-5.1); Sodium* 140 mmol/L (135-149)
[2022-07-29 08:26] LABS: Alanine Aminotransferase* 33 U/L (4-35); Alkaline Phosphatase* 93 U/L (40-150); Aspartate Amino Transferase* 23 U/L (12-35); Bilirubin Total* 0.6 mg/dL (0.1-1.5); Blood Urea Nitrogen* 12 mg/dL (7-30); Calcium* 9.6 mg/dL (8.4-10.6); Carbon Dioxide* 22 mmol/L (20-32); Creatinine* 0.6 mg/dL (0.5-1.5); Est. Creatinine Clearance* 49.12; Estimated Glomerular Filt Rate 98 ml/min; Glucose* 121 mg/dL (60-115); Total Protein* 7.1 g/dL (6.0-8.3)
[2022-07-29] MEDS: PERTUZUMAB 420 MG, TUBING SECONDARY 1 EACH in 0.9 % SODIUM CHLORIDE 250 ml 250 ML 528 MG IV (09:41)
[2022-07-29] MEDS: dexAMETHasone 10 MG in 0.9 % SODIUM CHLORIDE 100 ml 100 ML 420 MG IVPB (11:05)
[2022-07-29] MEDS: PALONOSETRON 0.25 MG/5 ML inj IV (11:05)
[2022-07-29] MEDS: FOSAPREPITANT 150 MG inj 150 MG in 0.9 % SODIUM CHLORIDE 250 ml 250 ML 780 MG IVPB (11:24)
--- NOTE | 2022-07-29 12:24 | ONC.NURNOTE ---
Accompanied patient to her oncology visit. Discussed at length symptom management of her diarrhea and nausea. Patient was given a calendar with how and when to take her anti-nausea medications. In regards to diarrhea, patient was given supplies to collect a stool specimen to rule out CDiff, if her diarrhea returns. Instructed to store it in her refrigerator until she can get it to the lab. Once a stool specimen has been obtained, patient was instructed to take Imodium 2 tablets with first loose stool and 1 additional tablet with each loose stool up to 8 tablets per 24 hours. In addition to Imodium, patient can take Lomotil three times daily as needed. Patient instructed to call if she has 3 or more loose stools per day. Patient was also given a printed copy of Self-Management of Diarrhea Related to Cancer Treatment . Patient verbalizes understanding.
--- NOTE | 2022-08-02 13:45 | ONC.NURNOTE ---
When I spoke to Shayy this morning, she reported that late last night she had a loose stool after having been constipated since her last chemotherapy. She collected a specimen for CDiff testing and her brought it to the lab. I just called patient to let her know the results are negative and she can start using the Imodium/Lomotil as directed. Shayy verbalizes understanding.
[2022-08-19 09:23] LABS: Albumin* 4.4 g/dL (3.3-5.0)
[2022-08-19 09:24] LABS: Chloride* 107 mmol/L (96-114); Potassium* 3.5 mmol/L (3.6-5.1); Sodium* 141 mmol/L (135-149)
[2022-08-19 09:26] LABS: Aspartate Amino Transferase* 23 U/L (12-35); Basophils Percent Auto 0.1 % (0.0-3.0); Bilirubin Total* 0.6 mg/dL (0.1-1.5); Carbon Dioxide* 24 mmol/L (20-32); Creatinine* 0.6 mg/dL (0.5-1.5); Est. Creatinine Clearance* 49.12; Estimated Glomerular Filt Rate 98 ml/min; Hematocrit 35.5 % (33.0-51.0); Hemoglobin* 12.7 gm/dL (12.0-16.0); Immature Granulocytes Pct Auto 0.4 %; Mean Corpuscular HGB Conc 36 gm/dL (32-36); Mean Corpuscular Hemoglobin 31 pg (26-34); Mean Corpuscular Volume 87 fL (80-100); Monocytes Percent Auto 5.6 % (0.0-11.0); Neutrophils Percent Auto 85.9 % (42.0-72.0); Platelet Count* 190 K/uL (140-440); RDW Coefficient of Variation % 13.8 % (11.5-15.5); Red Blood Count 4.09 m/uL (4.00-5.20); White Blood Count* 12.12 K/uL (4.50-11.00)
[2022-08-19 09:27] LABS: Alanine Aminotransferase* 28 U/L (4-35); Alkaline Phosphatase* 100 U/L (40-150); Blood Urea Nitrogen* 10 mg/dL (7-30); Calcium* 9.6 mg/dL (8.4-10.6); Glucose* 126 mg/dL (60-115); Slide Review Reflex No; Total Protein* 7.2 g/dL (6.0-8.3)
[2022-08-19 10:07] LABS: Magnesium* 1.6 mg/dL (1.5-2.6)
[2022-08-19] MEDS: PALONOSETRON 0.25 MG/5 ML inj IV (11:18)
[2022-08-19] MEDS: dexAMETHasone 10 MG in 0.9 % SODIUM CHLORIDE 100 ml 100 ML 420 MG IVPB (11:19)
[2022-08-19] MEDS: FOSAPREPITANT 150 MG inj 150 MG in 0.9 % SODIUM CHLORIDE 250 ml 250 ML 765 MG IVPB (11:40)
[2022-08-19] MEDS: PERTUZUMAB 420 MG, TUBING SECONDARY 1 EACH in 0.9 % SODIUM CHLORIDE 250 ml 250 ML 528 MG IV (12:09)
--- NOTE | 2022-08-19 16:14 | ONC.NURNOTE ---
Accompanied patient to her oncology visit. Discussed at length the importance of taking her anti-diarrhea medications. She agreed to follow the recommended plan: With the first loose stool, she will take one Lomotil tablet If she has another loose stool, she will take 2 Imodium If she has another loose stool, she will alternative Lomotil as prescribed and Imodium (max 16 mg per day). Patient will call [facility] if she has more then 4 loose stools in a 24 hour period despite taking anti-diarrhea medications. We also discussed dietary considerations. [facility] will call patient next week to see how she is doing. Patient verbalizes understanding of plan.
--- NOTE | 2022-08-25 14:31 | ONC.NURNOTE ---
Called pt to f/u diarrhea 1 wk after treatment. She reports that per her usual routine, she had 1 watery loose stool at midnight last night. She took 1 Lomotil per previously discussed anti-diarrhea plan in previous notes. She has not had any loose stools since. Reviewed plan to alternate Lomotil/Immodium per previous note; pt is agreeable to this plan and will contact us having 4+ water stools/day despite anti-diarrheal meds. Pt notes she is very tired for about 19 days following her 21 day tx cycles. She is sleeping an avg of 5 hrs/night uninterrupted; her sleeping routine prior to diagnosis was 8-9 hrs/night of sleep. She is taking on avg (4) 20-minute naps/day. She reports she feels like she is laying around a lot, then a couple days before her next cycle she is up more and able to cook a meal. Encouraged pt to increase activity around the house, taking an extra lap around the room when going from room to room, increasing frequency of short periods of activity. While the length of her naps is preferrably short, encouraged her to have a goal of taking fewer naps per day in hopes to increase her block of sleep overnight. She is agreeable to this plan and will call us if fatigue worsens.
[2022-09-09 08:26] LABS: Basophils Absolute Auto 0.01 K/uL (0.00-0.30); Basophils Percent Auto 0.1 % (0.0-3.0); Hematocrit 32.7 % (33.0-51.0); Hemoglobin* 11.5 gm/dL (12.0-16.0); Immature Granulocytes Abs Auto 0.03 K/uL (0.00-0.30); Immature Granulocytes Pct Auto 0.4 %; Lymphocytes Percent Auto 6.4 % (20-44); Mean Corpuscular HGB Conc 35 gm/dL (32-36); Mean Corpuscular Hemoglobin 31 pg (26-34); Mean Corpuscular Volume 88 fL (80-100); Monocytes Percent Auto 4.7 % (0.0-11.0); Neutrophils Percent Auto 88.4 % (42.0-72.0); Platelet Count* 185 K/uL (140-440); RDW Coefficient of Variation % 15.2 % (11.5-15.5); Red Blood Count 3.72 m/uL (4.00-5.20); White Blood Count* 8.11 K/uL (4.50-11.00)
[2022-09-09 08:34] LABS: Slide Review Reflex No
[2022-09-09 08:43] LABS: Albumin* 4.3 g/dL (3.3-5.0)
[2022-09-09 08:44] LABS: Chloride* 107 mmol/L (96-114); Potassium* 4.1 mmol/L (3.6-5.1); Sodium* 141 mmol/L (135-149)
[2022-09-09 08:46] LABS: Bilirubin Total* 0.5 mg/dL (0.1-1.5); Carbon Dioxide* 25 mmol/L (20-32); Creatinine* 0.6 mg/dL (0.5-1.5); Est. Creatinine Clearance* 48.45; Estimated Glomerular Filt Rate 98 ml/min
[2022-09-09 08:47] LABS: Alanine Aminotransferase* 27 U/L (4-35); Alkaline Phosphatase* 76 U/L (40-150); Aspartate Amino Transferase* 26 U/L (12-35); Blood Urea Nitrogen* 11 mg/dL (7-30); Calcium* 9.6 mg/dL (8.4-10.6); Glucose* 127 mg/dL (60-115); Total Protein* 7.1 g/dL (6.0-8.3)
[2022-09-09] MEDS: PALONOSETRON 0.25 MG/5 ML inj IV (11:20)
[2022-09-09] MEDS: dexAMETHasone 10 MG in 0.9 % SODIUM CHLORIDE 100 ml 100 ML 420 MG IVPB (11:20)
[2022-09-09] MEDS: FOSAPREPITANT 150 MG inj 150 MG in 0.9 % SODIUM CHLORIDE 250 ml 250 ML 780 MG IVPB (11:40)
[2022-09-30 09:36] LABS: Basophils Percent Auto 0.1 % (0.0-3.0); Hematocrit 29.5 % (33.0-51.0); Hemoglobin* 10.5 gm/dL (12.0-16.0); Immature Granulocytes Pct Auto 1.9 %; Lymphocytes Percent Auto 4.7 % (20-44); Mean Corpuscular HGB Conc 36 gm/dL (32-36); Mean Corpuscular Hemoglobin 32 pg (26-34); Mean Corpuscular Volume 91 fL (80-100); Monocytes Percent Auto 1.8 % (0.0-11.0); Neutrophils Percent Auto 91.5 % (42.0-72.0); Platelet Count* 218 K/uL (140-440); RDW Coefficient of Variation % 16.9 % (11.5-15.5); Red Blood Count 3.24 m/uL (4.00-5.20); White Blood Count* 11.98 K/uL (4.50-11.00)
[2022-09-30 09:40] LABS: Slide Review Reflex No
[2022-09-30 10:02] LABS: Albumin* 4.5 g/dL (3.3-5.0); Chloride* 104 mmol/L (96-114)
[2022-09-30 10:03] LABS: Potassium* 4.1 mmol/L (3.6-5.1); Sodium* 139 mmol/L (135-149)
[2022-09-30 10:05] LABS: Alkaline Phosphatase* 90 U/L (40-150); Aspartate Amino Transferase* 28 U/L (12-35); Bilirubin Total* 0.5 mg/dL (0.1-1.5); Blood Urea Nitrogen* 12 mg/dL (7-30); Carbon Dioxide* 24 mmol/L (20-32); Creatinine* 0.8 mg/dL (0.5-1.5); Est. Creatinine Clearance* 48.45; Estimated Glomerular Filt Rate 80 ml/min
[2022-09-30 10:06] LABS: Alanine Aminotransferase* 27 U/L (4-35); Calcium* 9.3 mg/dL (8.4-10.6); Glucose* 146 mg/dL (60-115)
[2022-09-30] MEDS: PALONOSETRON 0.25 MG/5 ML inj IV (12:37)
[2022-09-30] MEDS: dexAMETHasone 10 MG in 0.9 % SODIUM CHLORIDE 100 ml 100 ML 420 MG IVPB (12:37)
[2022-09-30] MEDS: FOSAPREPITANT 150 MG inj 150 MG in 0.9 % SODIUM CHLORIDE 250 ml 250 ML 510 MG IVPB (13:01)
[2022-10-21 09:21] LABS: Basophils Percent Auto 0.1 % (0.0-3.0); Hematocrit 25.3 % (33.0-51.0); Hemoglobin* 9.1 gm/dL (12.0-16.0); Immature Granulocytes Pct Auto 0.6 %; Lymphocytes Percent Auto 3.6 % (20-44); Mean Corpuscular HGB Conc 36 gm/dL (32-36); Mean Corpuscular Hemoglobin 34 pg (26-34); Mean Corpuscular Volume 94 fL (80-100); Monocytes Percent Auto 1.8 % (0.0-11.0); Neutrophils Percent Auto 93.9 % (42.0-72.0); Platelet Count* 107 K/uL (140-440); RDW Coefficient of Variation % 17.4 % (11.5-15.5); White Blood Count* 14.26 K/uL (4.50-11.00)
[2022-10-21 09:25] LABS: Slide Review Reflex No
[2022-10-21 09:35] LABS: Albumin* 4.6 g/dL (3.3-5.0); Chloride* 98 mmol/L (96-114); Potassium* 3.8 mmol/L (3.6-5.1); Sodium* 136 mmol/L (135-149)
[2022-10-21 09:37] LABS: Creatinine* 1.1 mg/dL (0.5-1.5); Est. Creatinine Clearance* 44.05; Estimated Glomerular Filt Rate 55 ml/min
[2022-10-21 09:38] LABS: Alanine Aminotransferase* 25 U/L (4-35); Alkaline Phosphatase* 93 U/L (40-150); Aspartate Amino Transferase* 27 U/L (12-35); Bilirubin Total* 0.6 mg/dL (0.1-1.5); Blood Urea Nitrogen* 17 mg/dL (7-30); Carbon Dioxide* 25 mmol/L (20-32); Glucose* 137 mg/dL (60-115)
[2022-10-21 09:39] LABS: Calcium* 9.5 mg/dL (8.4-10.6)
[2022-10-21] MEDS: 0.9 % SODIUM CHLORIDE 250 ml IV (11:46)
[2022-10-21] MEDS: PALONOSETRON 0.25 MG/5 ML inj IV (12:25)
[2022-10-21] MEDS: dexAMETHasone 10 MG in 0.9 % SODIUM CHLORIDE 100 ml 100 ML 420 MG IVPB (12:25)
[2022-10-21] MEDS: FOSAPREPITANT 150 MG inj 150 MG in 0.9 % SODIUM CHLORIDE 250 ml 250 ML 780 MG IVPB (12:43)
[2022-10-21] MEDS: SODIUM CHLORIDE 0.9 % (FLUSH) 10 ML SYRINGE IVF (15:00)
[2022-10-21] MEDS: HEPARIN 500 UNIT/5 ML SYRINGE IVF (15:00)
[2022-12-06 08:25] LABS: Hematocrit 27.4 % (33.0-51.0); Hemoglobin* 9.3 gm/dL (12.0-16.0); Immature Granulocytes Pct Auto 0.2 %; Lymphocytes Percent Auto 19.9 % (20-44); Mean Corpuscular HGB Conc 34 gm/dL (32-36); Mean Corpuscular Hemoglobin 35 pg (26-34); Mean Corpuscular Volume 103 fL (80-100); Monocytes Percent Auto 9.4 % (0.0-11.0); Neutrophils Percent Auto 68.5 % (42.0-72.0); Platelet Count* 234 K/uL (140-440); RDW Coefficient of Variation % 13.9 % (11.5-15.5); Red Blood Count 2.67 m/uL (4.00-5.20); White Blood Count* 4.13 K/uL (4.50-11.00)
[2022-12-06 08:30] LABS: Slide Review Reflex No
[2022-12-06] MEDS: SODIUM CHLORIDE 0.9 % (FLUSH) 10 ML SYRINGE IVF ×2 (08:53→09:55)
[2022-12-06 08:58] LABS: Albumin* 4.2 g/dL (3.3-5.0); Chloride* 106 mmol/L (96-114)
[2022-12-06 08:59] LABS: Potassium* 3.4 mmol/L (3.6-5.1); Sodium* 140 mmol/L (135-149)
[2022-12-06 09:01] LABS: Alkaline Phosphatase* 57 U/L (40-150); Aspartate Amino Transferase* 23 U/L (12-35); Bilirubin Total* 0.5 mg/dL (0.1-1.5); Blood Urea Nitrogen* 15 mg/dL (7-30); Carbon Dioxide* 26 mmol/L (20-32); Est. Creatinine Clearance* 48.45; Estimated Glomerular Filt Rate 61 ml/min; Total Protein* 6.7 g/dL (6.0-8.3)
[2022-12-06 09:02] LABS: Alanine Aminotransferase* 19 U/L (4-35); Calcium* 9.2 mg/dL (8.4-10.6); Glucose* 109 mg/dL (60-115)
[2022-12-06] MEDS: HEPARIN 500 UNIT/5 ML SYRINGE IVF (09:55)
--- NOTE | 2022-12-07 11:33 | URNOTE ---
Request received for authorization for ado-trastuzumab (Kadcyla) ([id number]).?Prior authorization is not required?as services are based on medical necessity and follow Medicare guidelines.
== END 2022-12-21 23:59 | disposition home or self-care (01) ==
LOC: CCIC 08:15
PROVIDERS: Clinical Nurse Specialist; Internal Medicine Medical Oncology; PCP Emergency Medicine; Referring Provider Emergency Medicine; Visit Provider Internal Medicine Hematology & Oncology
DX: C50.911 Malignant neoplasm of unspecified site of right female breast (principal); Z17.0 Estrogen receptor positive status [ER+]; C77.3 Secondary and unspecified malignant neoplasm of axilla and upper limb lymph nodes; R11.0 Nausea; R19.7 Diarrhea, unspecified; G62.9 Polyneuropathy, unspecified; H04.559 Acquired stenosis of unspecified nasolacrimal duct
CPT/HCPCS: 36415; 36591; 80053; 83735; 85025; 96376; 96377; 96413; 96415; 96417; 99202; 99205; 99212; 99215; J2506; J1100; J1453; J1642; J2469; J7050; J9045; J9171; J9306; J9355

== ENCOUNTER 2022-12-31 09:14 | Outpatient (CLI) | payer MEDICARE, BC, SELFPAY | END 2022-12-31 09:15 | disposition home or self-care (01) | PROVIDERS: PCP Emergency Medicine; Visit Provider Internal Medicine Hematology & Oncology | DX: C50.919 Malignant neoplasm of unspecified site of unspecified female breast (principal); Z51.81 Encounter for therapeutic drug level monitoring | CPT/HCPCS: 93306 ==

== ENCOUNTER 2023-03-03 14:40 | Outpatient (CLI) | payer MEDICARE, BC, SELFPAY ==
--- NOTE | 2023-03-03 15:00 | CRLHL7_ITS ---
For Patients: As a result of the Century Cures Act, medical imaging exams and procedure reports are released immediately into your electronic medical record. You may view this report before your referring provider. If you have questions, please contact your health care provider. DXA BONE MINERAL DENSITY STUDY Current height (in): 66.0. Weight (lb): 167.0. Menopause age: 51. Ethnicity: White. Reason for exam: care home (current) use of aromatase inhibitors. Breast cancer. 1. Have you had a previous hip or vertebral fracture? No. 2. Have you had any fractures during your adult life which did not result from significant trauma (e.g., auto accident)? No. 3. Did either of your parents have a hip fracture? No. 4. Do you smoke? No. 5. Have you ever taken Glucocorticoids? No. 6. Do you have rheumatoid arthritis? No. 7. Do you have secondary osteoporosis? No. 8. Do you drink 3 or more alcoholic drinks per day? No. 9. Are you being treated for osteoporosis? No. 10. Have you ever taken any of the following medications: Actonel, Evista, Fosamax, Miacalcin, Reclast, Boniva, Forteo, HRT (i.e. estrogen/hormone therapy), Protelos, Prolia, Vitamin D, Calcium, other ??? please specify. ANSWER: Yes, vitamin D, calcium. 11. Do you have any of the following medical conditions: Anorexia or bulimia, asthma or emphysema, end stage renal disease, hyperparathyroidism, any seizure disorders, cancer, inflammatory bowel diseases, hysterectomy, other ??? please specify. ANSWER: Yes, asthma or emphysema, cancer. 12. What was your maximum height (inches)? 67. 13. Do you perform weight bearing exercise regularly? Yes. 14. Do you regularly consume dairy products? Yes. 15. Do you drink caffeinated beverages? Yes. 16. At what age did your period start? 12. 17. Are you premenopausal? No. 18. How many full term pregnancies have you had? 2. 19. Have you ever missed your period for more than 6 months in a row (not including or menopause)? No. TECHNIQUE: Bone mineral density study was performed using the [employer]. FINDINGS: The results of the study expressed as bone mineral density (BMD) are as follows: Lumbar spine L1 to L3: BMD: 1.046 g/cm2. T-score: 0.3. Z-score: 2.2. Neck Left: BMD: 0.703 g/cm2. T-score: -1.3. Z-score: 0.4. Right: BMD: 0.714 g/cm2. T-score: -1.2. Z-score: 0.5. Total Left: BMD: 0.796 g/cm2. T-score: -1.2. Z-score: 0.2. Right: BMD: 0.833 g/cm2. T-score: -0.9. Z-score: 0.5. IMPRESSION: Osteopenia. FRAX 10-year Fracture Risk Major Osteoporotic Fracture: 9.2 percent Hip Fracture: 1.0 percent Reported Risk Factors: [place] () Neck BMD = 0.703, BMI = 27.0 Moses Calzada M.D. Diagnostic Radiologist [email or web address] Transcribed: 10:56 am DW/Dictated by: Moses Calzada MD @ 03/04/2023 8:47:00 AM (Electronically Signed)
== END 2023-03-03 14:41 | disposition home or self-care (01) ==
LOC: RAD 14:41
PROVIDERS: PCP Emergency Medicine; Visit Provider Physician Assistant
DX: M85.89 Other specified disorders of bone density and structure, multiple sites (principal); Z79.811 Long term (current) use of aromatase inhibitors
CPT/HCPCS: 77080

== ENCOUNTER 2023-03-25 08:49 | Outpatient (CLI) | payer MEDICARE, BC, SELFPAY | END 2023-03-25 08:50 | disposition home or self-care (01) | LOC: RAD 08:50 | PROVIDERS: PCP Emergency Medicine; Visit Provider Internal Medicine Hematology & Oncology | DX: C50.919 Malignant neoplasm of unspecified site of unspecified female breast (principal); I34.0 Nonrheumatic mitral (valve) insufficiency; I35.0 Nonrheumatic aortic (valve) stenosis; Z51.81 Encounter for therapeutic drug level monitoring; Z79.899 Other long term (current) drug therapy | CPT/HCPCS: 93306 ==

== ENCOUNTER 2023-06-03 08:57 | Outpatient (CLI) | payer MEDICARE, BC, SELFPAY ==
--- OUTSIDE RECORDS SUMMARY | 2023-06-03 08:59 | XMS_ITS | Encounter Summary ---
Author Name Unknown Organization [facility] Address [address] [place] [address] Care Team Providers Care Story Analyst Name Role Phone Unavailable Primary Care Provider Unavailabl e Encounter Details Date Type Department Care Team (Latest Contact Info) Description 01/20/2023 9:29 AM CDT - 01/20/2023 11:59 PM CDT Hospital Encounter Department of Radiation Oncology in [place], [place] [address] [place] [id number] Cami Lal M.D. [address] [place] [address] Discharge Disposition: Home or Self Care Social History Tobacco Use Types Packs/Day Years Used Date Smoking Tobacco: Former Cigarettes 0.5 5 Smokeless Tobacco: Never Alcohol Use Standard Drinks/Week Comments Not Currently 0 (1 standard drink = 0.6 oz pur e alcohol) Nutrition Answer Date Recorded Nutrition: EVOO Fat Source Unknown 12/07 Nutrition: Servings of Fruits/Vegetables per Day Not on file 12/07/2022 Dental Answer Date Recorded Dental: Regular Dentist Unknown 12/08/19 23 Sex and Gender Information Value Date Recorded Sex Assigned at Not on file Gender Identity Not on file Sexual Orientation Not on file documented as of this encounter Medications at Time of Discharge Medication Sig Dispensed Refills Start Date End Date acetaminophen (Tylenol Extra Strength) 500 mg tablet Take 500 mg by mouth. 0 06/24/2022 albuterol 90 mcg/actuation inhaler Inhale 2 puffs. 0 12/28/2021 atorvastatin calcium (ATORVASTATIN ORAL) Take 20 mg by mouth. 0 12/28/2021 B complex-vitamin (SUPER B-50) capsule Take 1 tablet by mouth. 0 3 cholecalciferol (VITAMIN D3) 1,250 mcg (50,000 Unit) capsule Take 125 mcg by mouth. 0 3 diphenoxylate-atropine (LomotiL) 2.5-0.025 mg per tablet Take 1 tablet by mouth. 0 07/29/2022 loratadine-pseudoephedr ine (CLARITIN-D 24-hour) 10-240 mg per 24 hr tablet Take 1 tablet by mouth. 0 09/02/2014 losartan (COZAAR) 50 mg tablet Take 50 mg by mouth. 0 12/28/2021 mometasone (ELOCON) 0.1 % cream Apply 1 Application topically daily. Apply to skin within the treatment field. 100 g 0 12/20/2022 multivit with minerals/lutein (MULTIVITAMIN 50 PLUS ORAL) Take 1 tablet by mouth. 0 06/24/2022 omega 6-doy-mhm-fish oil 1,200 (144-216) mg capsule Take 1 capsule by mouth. 0 06/24/2022 ondansetron (ZOFRAN) 4 mg/5 mL solution Take 8 mg by mouth every 8 (eight) hours as needed for nausea. 0 09/01/2022 ondansetron (ZOFRAN) 8 mg tablet every 8 (eight) hours as needed for nausea. 0 11/30/2022 prednisoLONE acetate (PRED FORTE) 1 % ophthalmic suspension Administer 1 drop into affected eye(s). 0 09/09/2022 prochlorperazine (COMPAZINE) 5 mg tablet Take 10 mg by mouth every 8 (eight) hours as needed for nausea. 0 07/29/2022 documented as of this encounter Plan of Treatment Not on file documented as of this encounter Visit Diagnoses Not on filedocumented in this encounter
--- OUTSIDE RECORDS SUMMARY | 2023-06-03 08:59 | XMS_ITS | Referral Summary ---
Author Name Unknown Organization [facility] Address [address] [place] [address] Care Team Providers Care Die Assembler Name Role Phone Unavailable Primary Care Provider Unavailabl e Source Comments Patient records contain information from all sites at [facility]. For routine questions regarding patient records, call [phone] during business hours, M-F 8:00 AM - 5:00 PM Central Time. Record requests for emergency care only can be directed to [phone] at any time.[facility] Allergies Active Allergy Reactions Criticality Noted Date Comments Pollen Extracts Other (see comments) Low 12/20/2022 Sneezing, itchy eyes Medications Medication Sig Dispensed Refills Start Date End Date Status acetaminophen (Tylenol Extra Strength) 500 mg tablet Take 500 mg by mouth. 0 06/24/2022 Active losartan (COZAAR) 50 mg tablet Take 50 mg by mouth. 0 12/28/2021 Acti ve atorvastatin calcium (ATORVASTATIN ORAL) Take 20 mg by mouth. 0 12/28/2021 Active cholecalciferol (VITAMIN D3) 1,250 mcg (50,000 Unit) capsule Take 125 mcg by mouth. 0 06/24/2022 Active diphenoxylate-atropi ne (LomotiL) 2.5-0.025 mg per tablet Take 1 tablet by mouth. 0 07/29/2022 Active multivit with minerals/lutein (MULTIVITAMIN 50 PLUS ORAL) Take 1 tablet by mouth. 0 06/24/2022 Active omega 8-jti-tgj-fish oil 1,200 (144-216) mg capsule Take 1 capsule by mouth. 0 06/24/2022 Active ondansetron (ZOFRAN) 4 mg/5 mL solution Take 8 mg by mouth every 8 (eight) hours as needed for nausea. 0 09/01/2022 Active prednisoLONE acetate (PRED FORTE) 1 % ophthalmic suspension Administer 1 drop into affected eye(s). 0 09/09/2022 Active ondansetron (ZOFRAN) 8 mg tablet every 8 (eight) hours as needed for nausea. 0 11/30/2022 Active prochlorperazine (COMPAZINE) 5 mg tablet Take 10 mg by mouth every 8 (eight) hours as needed for nausea. 0 07/29/2022 Active B complex-vitamin (SUPER B-50) capsule Take 1 tablet by mouth. 0 06/24/2022 Active albuterol 90 mcg/actuation inhaler Inhale 2 puffs. 0 12/28/2021 Active loratadine-pseudoeph edrine (CLARITIN-D 24-hour) 10-240 mg per 24 hr tablet Take 1 tablet by mouth. 0 09/02/2014 Active mometasone (ELOCON) 0.1 % cream Apply 1 Application topically daily. Apply to skin within the treatment field. 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 Right 07/29/2022 Cancer Staging:Clinical stage from 06/11/2022:Stage IB(cT2, cN1(f), cM0, G3, ER+, UT+, HER2+) - Unsigned Pathologic stage from 11/18/2022:No Stage Recommended(ypT1c, pN0(sn), cM0, G2, ER+, UT+, HER2+) - Unsigned Social History Tobacco Use Types Packs/Day Years [...] Date Recorded Dental: Regular Dentist Unknown 12/08/19 Sex and Gender Information Value Date Recorded Sex Assigned at Not on file Gender Identity Not on file Sexual Orientation Not on file Last Filed Vital Signs Vital Sign Reading Time Taken Comments Blood Pressure 137/74 12/20/2022 8:55 AM CDT Pulse 83 12/20/2022 8:55 AM CDT Temperature 36.4 ??C (97.6 ??F) 01/18/2023 1 0:00 AM CDT Respiratory Rate - - Oxygen Saturation - - Inhaled Oxygen Concentration - - Weight 74.8 kg (164 lb 14.5 oz) 023 10:00 AM CDT Height - - Body Mass Index - - Plan of Treatment Not on file Procedures Procedure Name Priority Date/Time Associated Diagnosis Comments OUTSIDE OTHER Routine 03/03/2023 3:05 PM CDT from Last 3 Months Results * XR DEXA axial skeleton-Outside Other (03/03/2023 3:05 PM CDT) 03/03/2023 3:01 PM CDT Narrative IIMS - 03/03/2023 3:17 PM CDT This order has been created and auto-finalized to support the import of outside images. If available, original interpretation can be found on the Media Tab in Chart Review, in Document Viewer, or as an image in QREADS. If a re-interpretation or overread is required please follow defined workflow. ?? Provider Not In System IMG DIAGNOSTIC IM AGING PROCEDURES IIMS NA from Last 3 Months
--- OUTSIDE RECORDS SUMMARY | 2023-06-03 08:59 | XMS_ITS | Encounter Summary ---
Author Name Unknown Organization [facility] Address [address] [place] [address] Care Team Providers Care Construction Laborer Name Role Phone Unavailable Primary Care Provider Unavailabl e Encounter Details Date Type Department Care Team (Late st Contact Info) Description 01/20/2023 Documentation Department of Radiation Oncology in [place], [place] [address] [place] [phone] Cami Lal M.D. [address] [place] [address] Social History Tobacco Use Types Packs/Day Years [...] on file documented as of this encounter Miscellaneous Notes * Radiation Completion Notes - Sandy Paige RDonatoN. - 01/20/2023 11:59 PM CDT DIAGNOSIS: 1. 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 Treatment Intent: Curative Concomitant Therapy: None Single Plan Treatment Course: 1xBreast Plan ID Fractions Dose / Fraction (cGy) Dose Treated (cGy) Dose Planned (cGy) First Treatment Last Treatment Elapsed Days [id number] 267 4005 4005 12/27/2022 01/14/2023 18 [id number] 250 1000 1000 01/17/2023 01/20/2023 3 Treatment Site Summary 5005 5005 12/27/2022 01/20/2023 24 Course Summary 12/27/2022 01/20/2023 24 Radiation Modality: Photons CLINICAL SUMMARY Ms. Shayy Burks completed radiation treatment as planned without interruptions. The course of treatment was tolerated well. The patient experienced toxicities of grade 1 dermatitis and breast pain during radiation treatment. TREATMENT RESPONSE: Response to treatment will be determined by post-treatment imaging and/or laboratory work. RECOMMENDED FOLLOW UP: Primary Medical Oncologist. Follow up will be with Dr. Zambrano. Signed by: Sandy Paige R.N., 01/25/2023 1:44 PM CDT [facility] [address] [place] [address] documented in this encounter Plan of Treatment Not on file documented as of this encounter Visit Diagnoses Diagnosis Malignant Neoplasm Of Breast Lower Outer Quadrant Female Right (HCC)- Primary documented in this encounter
--- OUTSIDE RECORDS SUMMARY | 2023-06-03 08:59 | XMS_ITS ---
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 Past Plans No past plan information found. Radiation Treatments * Plan Last Treated On Elapsed Days Fractions Treated Prescribed Fraction Dose Prescribed Total Dose [id number] 01/20/2023 24 4 of 4 250 cGy 1,000 cG y [id number] 01/14/2023 18 15 of 15 267 cGy 4,005 cGy Reference Point Last Treated On Elapsed Days Session Dose Total Dose [id number] 01/20/2023 24 250 cGy 5,005 cGy
--- OUTSIDE RECORDS SUMMARY | 2023-06-03 08:59 | XMS_ITS | Encounter Summary ---
Author Name Unknown Organization [facility] Address [address] [place] [address] Care Team Providers Care Trimmer Climber Name Role Phone Unavailable Primary Care Provider Unavailabl e Reason for Referral * Radiation Therapy (Routine) - Authorized Specialty Diagnoses / Procedures Referred By Donell manning Referred To Contact Diagnoses Malignant Neoplasm Of Breast Lower Outer Quadrant Female Right (HCC) Procedures Management Visit Cami Lal M.D. [address] [place] [address] [facility] Region Referral ID Status Reason Start Date Expiration Date V isits Requested Visits Authorized [id number] Authorized 12/14/2022 12/14/2023 10 10 Reason for Visit * Radiation Therapy (Routine) - Authorized Specialty Diagnoses / Procedures Referred By Donell manning Referred To Contact Diagnoses Malignant Neoplasm Of Breast Lower Outer Quadrant Female Right (HCC) Procedures Management Visit Cami Lal M.D. [address] [place] [address] [facility] Region Referral ID Status Reason Start Date Expiration Date V isits Requested Visits Authorized [id number] Authorized 12/14/2022 12/14/2023 10 10 Encounter Details Date Type Department Care Team (Latest Contact Info) Description 01/18/2023 9:26 AM CDT - 01/18/2023 1:16 PM CDT Hospital Encounter Department of Radiation Oncology in [place], [place] [address] [place] [phone] Cami Lal M.D. [address] [place] [address] Malignant Neoplasm Of Breast Lower Outer Quadrant Female Right (HCC) Social History Tobacco Use Types Packs/Day Years [...] on file documented as of this encounter Last Filed Vital Signs Vital Sign Reading Time Taken Comments Blood Pressure - - Pulse - - Temperature 36.4 ??C (97.6 ??F) 01/18/2023 1 0:00 AM CDT Respiratory Rate - - Oxygen Saturation - - Inhaled Oxygen Concentration - - Weight 74.8 kg (164 lb 14.5 oz) 023 10:00 AM CDT Height - - Body Mass Index - - documented in this encounter Medications at Time of Discharge [...] 1 tablet by mouth. 0 06/24/2022 omega 0-sht-wvl-fish oil 1,200 (144-216) mg capsule Take 1 [...] 0 07/29/2022 documented as of this encounter Progress Notes * Cami Lal M.D. - 01/18/2023 10:00 AM CDT ATTESTATION FOR MANAGEMENT VISIT I saw and evaluated the patient and participated in the herron portions of the service as noted below.I reviewed the documentation of Ms. Breanne Parsons RN and agree with the findings and plan. Thepatient appears well on exam. We will continue with radiation as planned and we anticipate that salomon complete treatments this week. We anticipate that Ms. Shayy Burks will complete radiation treatment as planned without interruptions. The course of treatment was tolerated well. The patient experienced toxicities of grade 1 dermatitis and breast pain during radiation treatment. Follow-up will be with Dr. Zambrano and we will be as needed. Their questions were answered; they were comfortable with this plan. Cami Lal M.D., 01/18/2023 SUBJECTIVE REASON FOR VISIT Evaluation for side effects while receiving radiation treatment for 1. 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 HISTORY OF PRESENT ILLNESS Ms. Shayy Burks is a 67 y.o. female with invasive ductal carcinoma of the right breast status post chemotherapy and lumpectomy. Patient is now undergoing radiation therapy. Treatment Course: 1xBreast Plan ID Fractions Dose / Fraction (cGy) Dose Treated (cGy) Dose Planned (cGy) First Treatment Last Treatment Elapsed Days [id number] 267 4005 4005 12/27/2022 01/14/2023 18 [id number] 480 716 9774 01/17/2023 01/18/2023 1 Treatment Site Summary 4505 5005 12/27/2022 01/18/2023 Course Summary 12/27/2022 01/18/2023 The patient was seen and examined today with Dr. Lal. The patient reports that she is doing well. She has noticed an increase in fatigue with treatments.Patient is to applying Mometasone cream and lotion twice daily to treatment field. She reports mild, intermittent breast pain. She takes Tylenol as needed for intermittent shoulder discomfort. She has no other issues or concerns. PATIENT REPORTED SYMPTOM SCREEN FATIGUE (Scale: 0 = no fatigue; 10 = worst fatigue you can imagine): 9 PAIN (Scale: 0 = no pain; 10 = worst pain you can imagine): 3 OVERALL QUALITY OF LIFE (Scale: 0 = as bad as can be; 10 = as good as can be): 6 OBJECTIVE Temp 36.4 ??C (Temporal) Wt 74.8 kg PHYSICAL EXAM General: Alert and oriented in no apparent distress. Skin: Minimal erythema noted to right breast ASSESSMENT / PLAN #1 Stage IB (cT2, cN1, cM0, G3, ER+, VT+, HER2+) invasive ductal carcinoma of the right breast s/p neoadjuvant chemotherapy and right breast lumpectomy and right lymph node excision, ypT1c, pN0, cM0,G2, ER+, VT+, HER2+ #2 High tangents radiotherapy to the right breast initiated on December 27, 2022; anticipated date of completion is on January 20, 2023 The patient is tolerating radiation treatment well overall. She can continue to apply Mometasone cream twice daily to treatment field. Patient can apply lotion 2-3 times daily to treatment field and should wait 20 minutes in between Mometasone and lotion application. She can continue to apply Mometasone for 10 days post treatment. She can continue to apply lotion for two weeks post treatment, once skin returns to baseline skin she can decrease lotion application. Skin related changes should start to resolve 2-3 weeks post treatment. Patient should continue monthly self breast exams. Patient will have ongoing follow with Dr. Zambrano at [facility]. She is scheduled for her next visit and infusion on January 26, 2023. Follow up with Dr. Lal will be on an as needed basis. Patient will be seen in weekly management visits. She will contact us with any questions or concerns. We will continue with radiation treatment as planned. Toxicities reviewed with Dr. Lal. Signed by: Breanne Parsons R.N. 01/18/2023 11:41 AM CDT documented in this encounter Plan of Treatment Scheduled Orders Name Type Priority Associated Diagnoses Orde r Schedule Management Visit Radiation Oncology Routine Malignant Neoplasm Of Breast Lower Outer Quadrant Female Right (HCC) Once for 1 Occurrences starting 01/18/2023 until 01/18/2023 documented as of this encounter Visit Diagnoses Diagnosis Malignant Neoplasm Of Breast Lower Outer Quadrant Female Right (HCC) documented in this encounter
--- OUTSIDE RECORDS SUMMARY | 2023-06-03 08:59 | XMS_ITS | Encounter Summary ---
Author Name Unknown Organization [facility] Address [address] [place] [address] Care Team Providers Care Anesthesiology Teacher Name Role Phone Unavailable Primary Care Provider Unavailabl e Encounter Details Date Type Department Care Team (Latest Contact Info) Description 01/19/2023 9:28 AM CDT - 01/19/2023 11:59 PM CDT Hospital Encounter Department of Radiation Oncology in [place], [place] [address] [place] [phone] Cami Lal M.D. [address] [place] [address] Discharge Disposition: Home or Self Care Social [...] 1 tablet by mouth. 0 06/24/2022 omega 9-moe-vub-fish oil 1,200 (144-216) mg capsule Take 1 [...]
--- OUTSIDE RECORDS SUMMARY | 2023-06-03 08:59 | XMS_ITS | Encounter Summary ---
Author Name Unknown Organization [facility] Address [address] [place] [address] Care Team Providers Care Lsw Name Role Phone Unavailable Primary Care Provider Unavailabl e Encounter Details Date Type Department Care Team (Latest Contact Info) Description 01/18/2023 9:26 AM CDT - 01/18/2023 11:59 PM CDT Hospital Encounter Department of Radiation Oncology in [place], [place] [address] [place] [phone] Cami Lal M.D. [address] [place] [address] Discharge Disposition: Home or Self Care Social [...] 1 tablet by mouth. 0 06/24/2022 omega 2-kpg-gtv-fish oil 1,200 (144-216) mg capsule Take 1 [...]
--- OUTSIDE RECORDS SUMMARY | 2023-06-03 08:59 | XMS_ITS ---
Author Name Unknown Organization [facility] Address [address] [place] [address] Care Team Providers Care Towel Weaver Name Role Phone Unavailable Unavailable Unavailable Surgery Details Not on file Complications Check Surgery Details section. Procedure Estimated Blood Loss Check Surgery Details section. Procedure Findings Check Surgery Details section. Procedure Specimens Taken Check Surgery Details section.
--- OUTSIDE RECORDS SUMMARY | 2023-06-03 08:59 | XMS_ITS | Clinical Summary ---
Author Name Unknown Organization [facility] Address [address] [place] [address] Care Team Providers Care Wink Cutter Operator Name Role Phone Unavailable Primary Care Provider Unavailabl e Source Comments Patient records contain information from all sites at [facility]. For routine questions regarding patient records, call [phone] during business hours, M-F 8:00 AM - 5:00 PM Central Time. Record requests for emergency care only can be directed to [phone] at any time.[facility] Allergies Active Allergy Reactions Criticality Noted Date [...] tablet by mouth. 0 06/24/2022 Active omega 3-ghu-pfi-fish oil 1,200 (144-216) mg capsule Take 1 [...] from 06/11/2022:Stage IB(cT2, cN1(f), cM0, G3, ER+, CA+, HER2+) - Unsigned Pathologic stage from 11/18/2022:No Stage Recommended(ypT1c, pN0(sn), cM0, G2, ER+, CA+, HER2+) - Unsigned Family History Medical History Relation Name Comments Liver cancer Maternal Grandfather Colon cancer Paternal Grandfather Breast cancer Sister Relation Name Status Comments Maternal Grandfather Paternal Grandfather Sister Social History Tobacco Use Types Packs/Day Years [...] Mass Index - - Plan of Treatment Health Maintenance Due Date Last Done Comments Bone Density Scan (Osteoporosis Screen) 1954 CT Colonography 1954 Cologuard 1954 Colonoscopy 1954 Colorectal Cancer Screening 1954 Creatinine Level (Kidney Function Test) 1954 FIT 1954 Fasting Glucose for Diabetes Screening 1954 Hepatitis C Screening 1954 Potassium Level 1954 Sodium Level 1954 Pneumococcal vaccine (65+ years) (1 of 2 - PCV) 1960 Zoster Vaccines (1 of 2) 1973 Depression Screening (Annual PHQ-2) 05/23/2022 DTaP,Tdap,and Td Vaccines (3 - Td or Tdap) 07/11/2022 07/11/2012, 07/01/2012 Mammogram 11/19/2023 11/18/2022, 10/22, 11/18/2022, Additional history exists Fall Risk Screen (Annual) Completed 12/30/2022 COVID-19 Vaccine Completed 03/22/2023, , 09/08/2021, Additional history exists Influenza Vaccine Completed 03/22/2023, , 03/24/2021, Additional history exists HPV Vaccines Aged Out No longer eligi ble based on patient's age to complete this topic Procedures Procedure Name Priority Date/Time Associated Diagnosis [...]
--- OUTSIDE RECORDS SUMMARY | 2023-06-03 08:59 | XMS_ITS | Encounter Summary ---
Author Name Unknown Organization [facility] Address [address] [place] [address] Care Team Providers Care Cert Occupational Therapy Asst Name Role Phone Unavailable Primary Care Provider Unavailabl e Encounter Details Date Type Department Care Team (Latest Contact Info) Description 01/17/2023 9:31 AM CDT - 01/17/2023 11:59 PM CDT Hospital Encounter Department of Radiation Oncology in [place], [place] [address] [place] [phone] Cami Lal M.D. [address] [place] [address] Discharge Disposition: Home or Self Care Social [...] 1 tablet by mouth. 0 06/24/2022 omega 7-dyy-swu-fish oil 1,200 (144-216) mg capsule Take 1 [...]
--- OUTSIDE RECORDS SUMMARY | 2023-06-03 09:00 | XMS_ITS | Encounter Summary ---
Author Name Unknown Organization [facility] Address [address] [place] [address] Care Team Providers Care Fabrication Engineer Name Role Phone Unavailable Primary Care Provider Unavailabl e Encounter Details Date Type Department Care Team (Latest Contact Info) Description 01/13/2023 9:19 AM CDT - 01/13/2023 11:59 PM CDT Hospital Encounter Department of Radiation Oncology in [place], [place] [address] [place] [phone] Cami Lal M.D. [address] [place] [address] Discharge Disposition: Home or Self Care Social [...] 1 tablet by mouth. 0 06/24/2022 omega 6-dyf-cml-fish oil 1,200 (144-216) mg capsule Take 1 [...]
--- OUTSIDE RECORDS SUMMARY | 2023-06-03 09:00 | XMS_ITS | Encounter Summary ---
Author Name Unknown Organization [facility] Address [address] [place] [address] Care Team Providers Care Fbi Sharpshooter Name Role Phone Unavailable Primary Care Provider Unavailabl e Reason for Referral * Radiation Therapy (Routine) - Authorized Specialty Diagnoses / Procedures Referred By Donell manning Referred To Contact Diagnoses Malignant Neoplasm Of Breast Lower Outer Quadrant Female Right (HCC) Procedures Management Visit Cami Lal M.D. [address] [place] [address] [facility] Region Referral ID Status Reason Start Date Expiration Date V isits Requested Visits Authorized [id number] Authorized 12/14/2022 12/14/2023 10 10 Reason for Visit * Radiation Therapy (Routine) - Authorized Specialty Diagnoses / Procedures Referred By Donell manning Referred To Contact Diagnoses Malignant Neoplasm Of Breast Lower Outer Quadrant Female Right (HCC) Procedures Management Visit Cami Lal M.D. [address] [place] [address] [facility] Region Referral ID Status Reason Start Date Expiration Date V isits Requested Visits Authorized [id number] Authorized 12/14/2022 12/14/2023 10 10 Encounter Details Date Type Department Care Team (Latest Contact Info) Description 01/12/2023 11:26 AM CDT - 01/12/2023 4:21 PM CDT Hospital Encounter Department of Radiation Oncology in [place], [place] [address] [place] [phone] Cami Lal M.D. [address] [place] [address] Malignant Neoplasm Of Breast Lower Outer Quadrant [...] Pressure - - Pulse - - Temperature 36 ??C (96.8 ??F) 01/12/2023 11: 45 AM CDT Respiratory Rate - - Oxygen Saturation - - Inhaled Oxygen Concentration - - Weight 74.3 kg (163 lb 11.2 oz) 023 11:45 AM CDT Height - - Body Mass [...] 1 tablet by mouth. 0 06/24/2022 omega 0-uag-nub-fish oil 1,200 (144-216) mg capsule Take 1 [...] Progress Notes * Cami Lal M.D. - 01/12/2023 11:30 AM CDT ATTESTATION FOR MANAGEMENT VISIT I saw and evaluated the patient and participated in the herron portions of the service as noted below.I reviewed the documentation of Ms. Breanne Parsons RN and agree with the findings and plan. Thepatient appears well on exam. We will continue with radiation as planned and monitor weekly. Cami Lal M.D., 01/12/2023 SUBJECTIVE REASON FOR VISIT Evaluation for side [...] (cGy) First Treatment Last Treatment Elapsed Days [id number] [phone] 12/27/2022 01/12/2023 16 Course Summary 12/27/2022 01/12/2023 16 The patient was seen and examined today with Dr. Lal. The patient reports that she is doing well. Patient is to applying Mometasone cream and lotion twice daily to treatment field. She reports mild, intermittent breast pain. She has not needed to take anything for it. She has no other issues or concerns. PATIENT REPORTED SYMPTOM SCREEN FATIGUE (Scale: 0 = no fatigue; 10 = worst fatigue you can imagine): 7 PAIN (Scale: 0 = no pain; 10 = worst pain you can imagine): 5 OVERALL QUALITY OF LIFE (Scale: 0 = as bad as can be; 10 = as good as can be): 4 OBJECTIVE There were no vitals taken for this visit. PHYSICAL EXAM General: Alert and oriented in no apparent distress. Skin: Minimal erythema noted to right breast ASSESSMENT / PLAN #1 Stage IB (cT2, cN1, cM0, G3, ER+, GA+, HER2+) invasive ductal carcinoma of the right breast s/p neoadjuvant chemotherapy and right breast lumpectomy and right lymph node excision, ypT1c, pN0, cM0,G2, ER+, GA+, HER2+ #2 High tangents radiotherapy to the [...] minutes in between Mometasone and lotion application. Patient will be seen in weekly management visits. She will contact us with any questions or concerns. We will continue with radiation treatment as planned. Signed by: Breanne Parsons R.N. 01/12/2023 11:44 AM CDT documented in this encounter Plan of Treatment Scheduled Orders Name Type Priority Associated Diagnoses Orde r Schedule Management Visit Radiation Oncology Routine Malignant Neoplasm Of Breast Lower Outer Quadrant Female Right (HCC) Once for 1 Occurrences starting 01/12/2023 until 01/12/2023 documented as of this encounter Visit Diagnoses Diagnosis Malignant Neoplasm Of Breast Lower Outer Quadrant Female Right (HCC) documented in this encounter
--- OUTSIDE RECORDS SUMMARY | 2023-06-03 09:00 | XMS_ITS | Encounter Summary ---
Author Name Unknown Organization [facility] Address [address] [place] [address] Care Team Providers Care Swimming Pool Servicer Name Role Phone Unavailable Primary Care Provider Unavailabl e Encounter Details Date Type Department Care Team (Latest Contact Info) Description 01/11/2023 8:51 AM CDT - 01/11/2023 11:59 PM CDT Hospital Encounter Department of Radiation Oncology in [place], [place] [address] [place] [phone] Cami Lal M.D. [address] [place] [address] Discharge Disposition: Home or Self Care Social [...] 1 tablet by mouth. 0 06/24/2022 omega 9-ema-xwn-fish oil 1,200 (144-216) mg capsule Take 1 [...]
--- OUTSIDE RECORDS SUMMARY | 2023-06-03 09:00 | XMS_ITS | Encounter Summary ---
Author Name Unknown Organization [facility] Address [address] [place] [address] Care Team Providers Care Tour Leader Name Role Phone Unavailable Primary Care Provider Unavailabl e Encounter Details Date Type Department Care Team (Latest Contact Info) Description 01/03/2023 9:58 AM CDT - 01/03/2023 11:59 PM CDT Hospital Encounter Department of Radiation Oncology in [place], [place] [address] [place] [phone] Cami Lal M.D. [address] [place] [address] Discharge Disposition: Home or Self Care Social [...] 1 tablet by mouth. 0 06/24/2022 omega 4-zza-rej-fish oil 1,200 (144-216) mg capsule Take 1 [...]
--- OUTSIDE RECORDS SUMMARY | 2023-06-03 09:00 | XMS_ITS | Encounter Summary ---
Author Name Unknown Organization [facility] Address [address] [place] [address] Care Team Providers Care Carburetor Specialist Name Role Phone Unavailable Primary Care Provider Unavailabl e Encounter Details Date Type Department Care Team (Latest Contact Info) Description 12/30/2022 10:27 AM CDT - 12/30/2022 11:59 PM CDT Hospital Encounter Department of Radiation Oncology in [place], [place] [address] [place] [phone] Cami Lal M.D. [address] [place] [address] Discharge Disposition: Home or Self Care Social [...] 1 tablet by mouth. 0 06/24/2022 omega 4-jqu-fvn-fish oil 1,200 (144-216) mg capsule Take 1 [...]
--- OUTSIDE RECORDS SUMMARY | 2023-06-03 09:00 | XMS_ITS | Encounter Summary ---
Author Name Unknown Organization [facility] Address [address] [place] [address] Care Team Providers Care Hazardous Substances Scientist Name Role Phone Unavailable Primary Care Provider Unavailabl e Reason for Referral * Specialty Diagnoses / Procedures Referred By Donell manning Referred To Contact Randi Larson APRN, C.N.P., D.N.P. [address] [place] [phone] [facility] Referral ID Status Reason Start Date Expiration Date Visits Re quested Visits Authorized Encounter Details Date Type Department Care Team (Latest Contact Info) Description 12/30/2022 10:27 AM CDT - 12/30/2022 12:50 PM CDT Hospital Encounter Department of Radiation Oncology in [place], [place] [address] [place] [phone] Cami Lal M.D. [address] [place] [phone] Sandy Paige RThais [address] [place] [phone] Malignant Neoplasm Of Breast Lower Outer Quadrant Female Right (HCC) Discharge Disposition: Home or Self Care Social [...] 1 tablet by mouth. 0 06/24/2022 omega 3-rmy-hxu-fish oil 1,200 (144-216) mg capsule Take 1 [...] as of this encounter Progress Notes * Sandy Paige RDonatoN. - 12/30/2022 11:00 AM CDT Patient was educated on side effects of radiation therapy. Their questions were answered to the best of my ability. The patient was encouraged to contact the team at any point, with questions or concerns. documented in this encounter Plan of Treatment Scheduled Referrals Name Type Priority Associated Diagnoses Order Schedule Radiation Oncology - Nurse education visit (clinic) Outpatient Referral Routine Malignant Neoplasm Of Breast Lower Outer Quadrant Female Right (HCC) Once for 1 Occurrences starting 12/30/2022 until 12/30/2022 documented as of this encounter Visit Diagnoses Diagnosis Malignant Neoplasm Of Breast Lower Outer Quadrant Female Right (HCC) documented in this encounter
--- OUTSIDE RECORDS SUMMARY | 2023-06-03 09:00 | XMS_ITS | Encounter Summary ---
Author Name Unknown Organization [facility] Address [address] [place] [address] Care Team Providers Care Centrifugal Operator Name Role Phone Unavailable Primary Care Provider Unavailabl e Reason for Referral * Radiation Therapy (Routine) - Authorized Specialty Diagnoses / Procedures Referred By Donell manning Referred To Contact Diagnoses Malignant Neoplasm Of Breast Lower Outer Quadrant Female Right (HCC) Procedures Management Visit Cami Lal M.D. [address] [place] [address] [facility] Region Referral ID Status Reason Start Date Expiration Date V isits Requested Visits Authorized [id number] Authorized 12/14/2022 12/14/2023 10 10 Reason for Visit * Radiation Therapy (Routine) - Authorized Specialty Diagnoses / Procedures Referred By Donell manning Referred To Contact Diagnoses Malignant Neoplasm Of Breast Lower Outer Quadrant Female Right (HCC) Procedures Management Visit Cami Lal M.D. [address] [place] [address] [facility] Region Referral ID Status Reason Start Date Expiration Date V isits Requested Visits Authorized [id number] Authorized 12/14/2022 12/14/2023 10 10 Encounter Details Date Type Department Care Team (Latest Contact Info) Description 01/06/2023 2:14 PM CDT - 01/06/2023 4:20 PM CDT Hospital Encounter Department of Radiation Oncology in [place], [place] [address] [place] [phone] Cami Lal M.D. [address] [place] [address] Malignant Neoplasm Of Breast Lower Outer Quadrant [...] Pressure - - Pulse - - Temperature 37.2 ??C (99 ??F) 01/06/2023 2:36 PM CDT Respiratory Rate - - Oxygen Saturation - - Inhaled Oxygen Concentration - - Weight 77.6 kg (171 lb 1.2 oz) 01/06/2023 2:36 P M CDT Height - - Body Mass Index [...] 1 tablet by mouth. 0 06/24/2022 omega 0-idt-ofx-fish oil 1,200 (144-216) mg capsule Take 1 [...] Progress Notes * Cami Lal M.D. - 01/06/2023 2:45 PM CDT ATTESTATION FOR MANAGEMENT VISIT I saw and evaluated the patient and participated in the herron portions of the service as noted below.I reviewed the documentation of Ms. Breanne Parsons RN and agree with the findings and plan. Thepatient appears well on exam. We will continue with radiation as planned and monitor weekly. Cami Lal M.D., 01/06/2023 SUBJECTIVE REASON FOR VISIT Evaluation for side [...] (cGy) First Treatment Last Treatment Elapsed Days [id number] 12/27/2022 01/06/2023 10 Course Summary 12/27/2022 01/06/2023 10 The patient was seen and examined today with Dr. Lal. The patient reports that she is doing well. Patient is to apply Mometasone cream twice daily to treatment field. She reports mild swelling and tenderness to breast. She has not needed to take anything for discomfort. PATIENT REPORTED SYMPTOM SCREEN FATIGUE (Scale: 0 = no fatigue; 10 = worst fatigue you can imagine): 7 PAIN (Scale: 0 = no pain; 10 = worst pain you can imagine): 3 OVERALL QUALITY OF LIFE (Scale: 0 = as bad as can be; 10 = as good as can be): 6 OBJECTIVE Temp 37.2 ??C (Temporal) Wt 77.6 kg PHYSICAL EXAM General: Alert and oriented in no apparent distress. 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 Signed by: Breanne Parsons R.N. 01/06/2023 3:55 PM CDT documented in this encounter Plan of Treatment Scheduled Orders Name Type Priority Associated Diagnoses Orde r Schedule Management Visit Radiation Oncology Routine Malignant Neoplasm Of Breast Lower Outer Quadrant Female Right (HCC) Once for 1 Occurrences starting 01/06/2023 until 01/06/2023 documented as of this encounter Visit Diagnoses Diagnosis Malignant Neoplasm Of Breast Lower Outer Quadrant Female Right (HCC) documented in this encounter
--- OUTSIDE RECORDS SUMMARY | 2023-06-03 09:00 | XMS_ITS | Encounter Summary ---
Author Name Unknown Organization [facility] Address [address] [place] [address] Care Team Providers Care Picker Tender Helper Name Role Phone Unavailable Primary Care Provider Unavailabl e Encounter Details Date Type Department Care Team (Latest Contact Info) Description 01/06/2023 2:14 PM CDT - 01/06/2023 11:59 PM CDT Hospital Encounter Department of Radiation Oncology in [place], [place] [address] [place] [phone] Cami Lal M.D. [address] [place] [address] Discharge Disposition: Home or Self Care Social [...] 1 tablet by mouth. 0 06/24/2022 omega 0-yhx-npv-fish oil 1,200 (144-216) mg capsule Take 1 [...]
--- OUTSIDE RECORDS SUMMARY | 2023-06-03 09:00 | XMS_ITS | Encounter Summary ---
Author Name Unknown Organization [facility] Address [address] [place] [address] Care Team Providers Care Heating Mechanic Name Role Phone Unavailable Primary Care Provider Unavailabl e Encounter Details Date Type Department Care Team (Latest Contact Info) Description 01/12/2023 10:28 AM CDT - 01/12/2023 11:25 AM CDT Hospital Encounter Department of Radiation Oncology in [place], [place] [address] [place] [phone] Cami Lal M.D. [address] [place] [address] Discharge Disposition: Home or Self Care Social [...] 1 tablet by mouth. 0 06/24/2022 omega 2-fhf-wmb-fish oil 1,200 (144-216) mg capsule Take 1 [...]
--- OUTSIDE RECORDS SUMMARY | 2023-06-03 09:00 | XMS_ITS | Encounter Summary ---
Author Name Unknown Organization [facility] Address [address] [place] [address] Care Team Providers Care Upper Doubler Name Role Phone Unavailable Primary Care Provider Unavailabl e Encounter Details Date Type Department Care Team (Latest Contact Info) Description 01/07/2023 12:42 PM CDT - 01/07/2023 11:59 PM CDT Hospital Encounter Department of Radiation Oncology in [place], [place] [address] [place] [phone] Cami Lal M.D. [address] [place] [address] Discharge Disposition: Home or Self Care Social [...] 1 tablet by mouth. 0 06/24/2022 omega 3-mkz-trt-fish oil 1,200 (144-216) mg capsule Take 1 [...]
--- OUTSIDE RECORDS SUMMARY | 2023-06-03 09:00 | XMS_ITS | Encounter Summary ---
Author Name Unknown Organization [facility] Address [address] [place] [address] Care Team Providers Care Food Vendor Name Role Phone Unavailable Primary Care Provider Unavailabl e Encounter Details Date Type Department Care Team (Latest Contact Info) Description 12/31/2022 8:30 AM CDT - 12/31/2022 11:59 PM CDT Hospital Encounter Department of Radiation Oncology in [place], [place] [address] [place] [phone] Cami Lal M.D. [address] [place] [address] Discharge Disposition: Home or Self Care Social [...] 1 tablet by mouth. 0 06/24/2022 omega 7-zhm-hwz-fish oil 1,200 (144-216) mg capsule Take 1 [...]
--- OUTSIDE RECORDS SUMMARY | 2023-06-03 09:00 | XMS_ITS | Encounter Summary ---
Author Name Unknown Organization [facility] Address [address] [place] [address] Care Team Providers Care Acid Etch Operator Name Role Phone Unavailable Primary Care Provider Unavailabl e Encounter Details Date Type Department Care Team (Latest Contact Info) Description 01/14/2023 9:14 AM CDT - 01/14/2023 11:59 PM CDT Hospital Encounter Department of Radiation Oncology in [place], [place] [address] [place] [phone] Cami Lal M.D. [address] [place] [address] Discharge Disposition: Home or Self Care Social [...] 1 tablet by mouth. 0 06/24/2022 omega 7-agr-vlm-fish oil 1,200 (144-216) mg capsule Take 1 [...]
--- OUTSIDE RECORDS SUMMARY | 2023-06-03 09:00 | XMS_ITS | Encounter Summary ---
Author Name Unknown Organization [facility] Address [address] [place] [address] Care Team Providers Care Importer Exporter Name Role Phone Unavailable Primary Care Provider Unavailabl e Encounter Details Date Type Department Care Team (Latest Contact Info) Description 12/29/2022 10:24 AM CDT - 12/29/2022 11:59 PM CDT Hospital Encounter Department of Radiation Oncology in [place], [place] [address] [place] [phone] Cami Lal M.D. [address] [place] [address] Discharge Disposition: Home or Self Care Social [...] Take 1 tablet by mouth. 0 07/29/2022 loratadine-pseudoephed rine (CLARITIN-D 24-hour) 10-240 mg per 24 hr tablet Take 1 tablet by mouth. 0 09/02/2014 losartan (COZAAR) 50 mg tablet Take 50 mg by mouth. 0 12/28/2021 mometasone (ELOCON) 0.1 % cream Apply 1 Application topically daily. Apply to skin within the treatment field. 100 g 0 12/20/2022 multivit with minerals/lutein (MULTIVITAMIN 50 PLUS ORAL) Take 1 tablet by mouth. 0 06/24/2022 omega 2-wvl-pyd-fish oil 1,200 (144-216) mg capsule Take 1 [...] hours as needed for nausea. 0 07/29/2022 Klor-Con M20 20 mEq ER tablet TAKE 1 TABLET ORALLY EVERY DAY FOR 5 DAYS 0 11/10/2022 12/30/2022 documented as of this encounter Plan of Treatment Not on file documented as of this encounter Visit Diagnoses Not on filedocumented in this encounter
--- OUTSIDE RECORDS SUMMARY | 2023-06-03 09:00 | XMS_ITS | Encounter Summary ---
Author Name Unknown Organization [facility] Address [address] [place] [address] Care Team Providers Care Self Pay Collector Name Role Phone Unavailable Primary Care Provider Unavailabl e Encounter Details Date Type Department Care Team (Latest Contact Info) Description 01/05/2023 7:43 AM CDT - 01/05/2023 11:59 PM CDT Hospital Encounter Department of Radiation Oncology in [place], [place] [address] [place] [phone] Cami Lal M.D. [address] [place] [address] Discharge Disposition: Home or Self Care Social [...] 1 tablet by mouth. 0 06/24/2022 omega 2-ugg-pvb-fish oil 1,200 (144-216) mg capsule Take 1 [...]
--- OUTSIDE RECORDS SUMMARY | 2023-06-03 09:00 | XMS_ITS | Encounter Summary ---
Author Name Unknown Organization [facility] Address [address] [place] [address] Care Team Providers Care Edge Baster Name Role Phone Unavailable Primary Care Provider Unavailabl e Encounter Details Date Type Department Care Team (Latest Contact Info) Description 01/04/2023 10:13 AM CDT - 01/04/2023 11:59 PM CDT Hospital Encounter Department of Radiation Oncology in [place], [place] [address] [place] [address] Cami Lal M.D. [address] [place] [address] Discharge Disposition: Home or Self Care Social [...] 1 tablet by mouth. 0 06/24/2022 omega 7-sxr-bui-fish oil 1,200 (144-216) mg capsule Take 1 [...]
--- OUTSIDE RECORDS SUMMARY | 2023-06-03 09:00 | XMS_ITS | Encounter Summary ---
Author Name Unknown Organization [facility] Address [address] [place] [address] Care Team Providers Care Bicycle Repair Technician Name Role Phone Unavailable Primary Care Provider Unavailabl e Encounter Details Date Type Department Care Team (Latest Contact Info) Description 01/10/2023 10:11 AM CDT - 01/10/2023 11:59 PM CDT Hospital Encounter Department of Radiation Oncology in [place], [place] [address] [place] [address] Cami Lal M.D. [address] [place] [address] Discharge Disposition: Home or Self Care Social [...] 1 tablet by mouth. 0 06/24/2022 omega 6-zys-dnw-fish oil 1,200 (144-216) mg capsule Take 1 [...]
--- OUTSIDE RECORDS SUMMARY | 2023-06-03 09:01 | XMS_ITS | Encounter Summary ---
Author Name Unknown Organization [facility] Address [address] [place] [address] Care Team Providers Care Professional Fighter Name Role Phone Unavailable Primary Care Provider Unavailabl e Reason for Referral * Outpatient (Routine) - Authorized Specialty Diagnoses / Procedures Referred By Contac t Referred To Contact Radiation Oncology Cami Lal M.D. [address] [place] [address] [facility] Region Referral ID Status Reason Start Date Expiration Date V isits Requested Visits Authorized [id number] Authorized 12/14/2022 12/13/2025 10 10 * Specialty Diagnoses / Procedures Referred By Contac t Referred To Contact Randi Larson APRN, C.N.PDonato, D.N.P. [address] [place] [address] [facility] Region Referral ID Status Reason Start Date Expiration Date Visits Re quested Visits Authorized * Specialty Diagnoses / Procedures Referred By Contac t Referred To Contact Randi Larson APRN, C.N.P., D.N.P. [address] [place] [address] [facility] Region Referral ID Status Reason Start Date Expiration Date Visits Re quested Visits Authorized * Radiation Therapy (Routine) - Authorized Specialty Diagnoses / Procedures Referred By Contac t Referred To Contact Diagnoses Malignant Neoplasm Of Breast Lower Outer Quadrant Female Right (HCC) Procedures Management Visit Cami Lal M.D. [address] [place] [address] [facility] Region Referral ID Status Reason Start Date Expiration Date V isits Requested Visits Authorized [id number] Authorized 12/14/2022 12/14/2023 10 10 * Radiation Therapy (Routine) - Authorized Specialty Diagnoses / Procedures Referred By Marquiseac t Referred To Contact Diagnoses Malignant Neoplasm Of Breast Lower Outer Quadrant Female Right (HCC) Procedures Prior Auth Rad Tx Cami Lal M.D. [address] [place] [address] [facility] Referral ID Status Reason Start Date Expiration Date V isits Requested Visits Authorized [id number] Authorized 12/14/2022 12/14/2023 1 1 * Radiation Therapy (Routine) - Closed Specialty Diagnoses / Procedures Referred By Marquiseac t Referred To Contact Diagnoses Malignant Neoplasm Of Breast Lower Outer Quadrant Female Right (HCC) Procedures Initial Rad Onc Treatment Planning CT Simulation Cami Lal M.D. [address] [place] [address] [facility] Region Referral ID Status Reason Start Date Expiration Date Visits Re quested Visits Authorized [id number] Closed 12/14/2022 12/14/2023 1 1 Encounter Details Date Type Department Care Team (Late st Contact Info) Description 12/14/2022 Orders Only Department of Radiation Oncology in [place], [place] [address] [place] [phone] Randi Larson APRN, C.N.P., D.N.P. [address] [place] [address] Malignant Neoplasm Of Breast Lower Outer Quadrant Female Right (HCC) (Primary Dx) Social History Tobacco Use Types Packs/Day Years Used Date Smoking Tobacco: Former Cigarettes Nutrition Answer Date Recorded Nutrition: EVOO Fat Source Unknown 12/07 Nutrition: Servings of Fruits/Vegetables per Day Not on file 12/07/2022 Dental Answer Date Recorded Dental: Regular Dentist Unknown 12/08/19 Sex and Gender Information Value Date Recorded Sex Assigned at Not on file Gender Identity Not on file Sexual Orientation Not on file documented as of this encounter Plan of Treatment Scheduled Orders Name Type Priority Associated Diagnoses Order Schedule Prior Auth Rad Tx Radiation Oncology Routine Malignant Neoplasm Of Breast Lower Outer Quadrant Female Right (HCC) Ordered: 12/14/2022 Management Visit Radiation Oncology Routine Malignant Neoplasm Of Breast Lower Outer Quadrant Female Right (HCC) 10 Occurrences starting 12/14/2022 until 12/15/2023 Scheduled Referrals Name Type Priority Associated Diagnoses Order Schedule Radiation Oncology - PRO education visit Outpatient Referral Routine Malignant Neoplasm Of Breast Lower Outer Quadrant Female Right (HCC) Expected: 12/14/2022 (Approximate), Expires: 03/16/2024 Radiation Oncology - Nurse education visit (clinic) Outpatient Referral Routine Malignant Neoplasm Of Breast Lower Outer Quadrant Female Right (HCC) Expected: 12/14/2022 (Approximate), Expires: 12/15/2023 Radiation Oncology nurse visit (clinic) Outpatient Referral Routine 10 Occurrenc es starting 12/14/2022 until 12/15/2023 documented as of this encounter Results * Initial Rad Onc Treatment Planning CT Simulation (12/20/2022 10:00 AM CDT) Narrative JOSE FRANCISCO MARQUES - 12/20/2022 10:00 AM CDT Rosa Murray, RTT ? 12/20/2022 10:28 AM Initial Rad Onc Treatment Planning CT Simulation Performed by: Cami Lal M.D. Authorized by: Cami Lal M.D. ?? Cami Lal M.D. RADIATION ONCOLOG Y ORDERABLES Performing Organization Address City/State/[facility] Co de Phone Number JOSE FRANCISCO mayers documented in this encounter Visit Diagnoses Diagnosis Malignant Neoplasm Of Breast Lower Outer Quadrant Female Right (HCC)- Primary Malignant Neoplasm Of Breast Lower Outer Quadrant Female Right (HCC) documented in this encounter
--- OUTSIDE RECORDS SUMMARY | 2023-06-03 09:01 | XMS_ITS | Encounter Summary ---
Author Name Unknown Organization 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 [address] [place] [address] Referral ID Status Reason Start Date Expiration Date Visits Re quested Visits Authorized [id number] Closed 12/07/2022 12/07/2023 1 1 Encounter Details Date Type Department Care Team (Latest Contact Info) Description 12/20/2022 8:52 AM CDT - 12/20/2022 9:59 AM CDT Hospital Encounter Department of Radiation Oncology in [place], [place] [address] [place] [phone] Cami Lal M.D. [address] [place] [address] Malignant Neoplasm Of Breast Lower Outer Quadrant [...] AM CDT Temperature 36.4 ??C (97.6 ??F) 12/20/2022 8:55 AM CD T Respiratory Rate - - Oxygen Saturation - - Inhaled Oxygen Concentration - - Weight 75.8 kg (167 lb 1.6 oz) 12/20/2022 8:55 A M CDT Height - - Body Mass [...] Take 1 tablet by mouth. 0 06/24/2022 cholecalciferol (VITAMIN D3) 1,250 mcg (50,000 Unit) capsule Take 125 mcg by mouth. 0 diphenoxylate-atropine (LomotiL) 2.5-0.025 mg per tablet Take 1 tablet by mouth. 0 07/29/2022 loratadine-pseudoephedr ine (CLARITIN-D 24-hour) 10-240 mg per 24 hr tablet Take 1 tablet by mouth. 0 09/02/2014 losartan (COZAAR) 50 mg tablet Take 50 mg by mouth. 0 12/28/2021 multivit with minerals/lutein (MULTIVITAMIN 50 PLUS ORAL) Take 1 tablet by mouth. 0 06/24/2022 omega 3-ihe-vwz-fish oil 1,200 (144-216) mg capsule Take 1 [...] 11/10/2022 12/30/2022 documented as of this encounter Consult Notes * Corazon Nation P.A.-C., M.S. - 12/20/2022 9:00 AM CDT SUBJECTIVE REQUESTING PROVIDER Chen Zambrano M.D. REASON FOR CONSULT 1. 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 HISTORY OF PRESENT ILLNESS Ms. Shayy Burks is a 67-year-old female with invasive ductal carcinoma of the right breast, who presents today for an opinion regarding the role of radiation therapy in the management of the patient's disease. Her oncologic history is as follows: Oncology History Malignant Neoplasm Of Breast Lower Outer Quadrant Female Right (HCC) 06/03/2022 Initial Diagnosis Patient noted to have palpable lump in her right breast for several months. Presented to primary care provider after it was developing pain. 06/07/2022 Critical Imaging Bilateral diagnostic mammogram and focused right breast ultrasound. Impression: Suspicious palpable mass in the right breast 6 o'clock 9 cm from the nipple measuring 2.1 cm. Suspicious enlarged right axillary lymph node measuring 1.7 cm. No suspicious masses in the left breast. 06/11/2022 Biopsy/Pathology Final Diagnosis A) RIGHT BREAST, 6:00, 9 CM FROM NIPPLE, ULTRASOUND-GUIDED CORE BIOPSY: 1. Invasive ductal carcinoma with micropapillary features (see comment) a. Loan grade: III of III; Loan score: 8 of 9 b. Angio-lymphatic invasion: Suspicious c. Associated DCIS: Present d. Subtype: Solid e. Grade of DCIS: 3 of 3 2. Breast Ancillary Testing: a. Hormone Receptors: Estrogen receptor: Positive (99%, strong staining) Progesterone receptor: Positive (3%, moderate staining) b. HER2 by IHC: Positive (3+ by manual morphometry) B) RIGHT AXILLA, LYMPH NODE, ULTRASOUND-GUIDED CORE BIOPSY: 1. Metastatic carcinoma to a lymph node, characterized by: a. Metastatic carcinoma measures at least 7 mm b. Negative for extracapsular extension in this biopsy 06/17/2022 Critical Imaging Bilateral breast MRI Findings: RIGHT breast: 6 o'clock, posterior depth irregular mass enhancement measuring 2.3 x 1.9 x 1.3 cm, corresponds with biopsy-proven malignancy. The masses at the inframammary fold region and closely abuts/may involve the dermis. No evidence for chest wall involvement. No suspicious enhancement for malignancy elsewhere. LEFT breast: No suspicious enhancement for malignancy. Lymph nodes: 3 clumped lymph nodes in the anterior right axillary region with thickened cortices, 1of which was biopsied positive for metastatic disease. No suspicious lymph nodes left axilla. 06/23/[address] Brian Lowery to discuss surgical options. Recommended neoadjuvant chemotherapy due to positive metastatic disease and HER2 positive status. Evaluated by Dr. Chen Zambrano on 06/24/2022 to discuss neoadjuvant chemotherapy options. 07/08/2022 - 10/21/2022 Chemotherapy Neoadjuvant docetaxel/carboplatin/Herceptin/Perjeta under the care of Dr. Zambrano at [facility]. 11/18/2022 Surgery and Procedures Right breast lumpectomy and right sentinel lymph node biopsy performed by Dr. Brian Lowery. Final Diagnosis A) RIGHT BREAST, WIRE-LOCALIZED LUMPECTOMY STATUS POST NEOADJUVANT CHEMOTHERAPY: 1. Residual invasive ductal carcinoma, [place] grade II of III (see comment) a. Size: 20 mm b. Tumor bed changes present, measuring 24 x 23 x 16 mm c. Biopsy clip and core biopsy associated changes identified 2. Residual ductal carcinoma in situ (DCIS), nuclear grade 3, solid and cribriform types 3. Margins: a. Invasive carcinoma is less than 1 mm from the medial, lateral, inferior and posterior margins b. DCIS is less than 1 mm from the superior margin over a 10 mm area 4. Pretreatment Breast Ancillary Testing: Performed on prior case ([id number]) a. Hormone Receptors: Estrogen receptor: Positive (99%, strong staining) Progesterone receptor: Positive (3%, moderate staining) b. HER2 by IHC: Positive (3+ by manual morphometry) B) RIGHT AXILLARY SENTINEL LYMPH NODE #1, WIRE-LOCALIZED EXCISION: 1. Negative for metastatic malignancy in one lymph node (0/1); see comment 2. Treatment effect is present 3. Biopsy clip identified C) RIGHT AXILLARY SENTINEL LYMPH NODE #2, EXCISION: 1. Negative for metastatic malignancy in one lymph node (0/1); see comment 2. No treatment effect identified D) RIGHT AXILLARY SENTINEL LYMPH NODE #3, EXCISION: 1. Negative for metastatic malignancy in one lymph node (0/1); see comment 2. No treatment effect identified E) RIGHT AXILLARY SENTINEL LYMPH NODE #4, EXCISION: 1. Negative for metastatic malignancy in one lymph node (0/1); see comment 2. No treatment effect identified F) RIGHT AXILLARY SENTINEL LYMPH NODE #6, EXCISION: 1. Negative for metastatic malignancy in one lymph node (0/1); see comment 2. No treatment effect identified G) RIGHT AXILLARY SENTINEL LYMPH NODE #5, EXCISION: 1. Negative for metastatic malignancy in one lymph node (0/1); see comment 2. No treatment effect identified H) RIGHT AXILLARY SENTINEL LYMPH NODE #7, EXCISION: 1. Negative for metastatic malignancy in one lymph node (0/1); see comment 2. No treatment effect identified I) RIGHT AXILLA, ADDITIONAL TISSUE, EXCISION: 1. Negative for metastatic malignancy in one lymph node (0/1); see comment 2. Treatment effect is present SYNOPTIC REPORTING INVASIVE CARCINOMA OF THE BREAST: Resection INVASIVE CARCINOMA OF THE BREAST: COMPLETE EXCISION - All Specimens 8th Edition - Protocol posted: 11/11/2021 SPECIMEN Procedure: Excision (less than total mastectomy) Specimen Laterality: Right TUMOR Tumor Site: Clock position : 6 o'clock Tumor Site: Distance from nipple (Centimeters): 9 cm Histologic Type: Invasive carcinoma of no special type (ductal) Histologic Grade (Loan Histologic Score): Glandular (Acinar) / Tubular Differentiation: Score 3 Nuclear Pleomorphism: Score 2 Mitotic Rate: Score 1 Overall Grade: Grade 2 (scores of 6 or 7) Tumor Size: Greatest dimension of largest invasive focus (Millimeters): 20 mm Tumor Focality: Single focus of invasive carcinoma Ductal Carcinoma In Situ (DCIS): Present : Negative for extensive intraductal component (EIC) Architectural Patterns: Cribriform Architectural Patterns: Solid Nuclear Grade: Grade III (high) Necrosis: Not identified Lobular Carcinoma In Situ (LCIS): Not identified Lymphovascular Invasion: Not identified Dermal Lymphovascular Invasion: No skin present Microcalcifications: Present in DCIS Treatment Effect in the Breast: Probable or definite response to presurgical therapy in the invasive carcinoma Treatment Effect in the Lymph Nodes: No lymph node metastases. Fibrous scarring or histiocytic aggregates, possibly related to prior lymph node metastases with pathologic complete response MARGINS Margin Status for Invasive Carcinoma: All margins negative for invasive carcinoma Distance from Invasive Carcinoma to Closest Margin: Less than: 1 mm Closest Margin(s) to Invasive Carcinoma: Posterior Closest Margin(s) to Invasive Carcinoma: Inferior Closest Margin(s) to Invasive Carcinoma: Medial Closest Margin(s) to Invasive Carcinoma: Lateral Margin Status for DCIS: All margins negative for DCIS Distance from DCIS to Closest Margin: Less than: 1 mm Closest Margin(s) to DCIS: Superior REGIONAL LYMPH NODES Regional Lymph Node Status: : All regional lymph nodes negative for tumor Total Number of Lymph Nodes Examined (sentinel and non-sentinel): 8 Number of [place] Nodes Examined: 7 PATHOLOGIC STAGE CLASSIFICATION (pTNM, AJCC 8th Edition) TNM Descriptors: y (post-treatment) pT Category: pT1c pN Category: pN0 12/27/2022 - Radiation Therapy Radiation Therapy Treatment Details (Noted on 12/14/2022) Site: Right Breast Technique: 3D BOMB SQUAD OFFICER Goal: Curative Planned Treatment Start Date: 12/27/2022 01/05/2023 - Biological/Targeted/Hormone Therapy Planned treatment start of TDM1 every 21 days. Endocrine therapy will be started after radiation therapy, per Dr. Zambrano. INTERVAL HISTORY The patient was seen and examined today with Dr. Lal. The patient reports fatigue rated 7/10 in severity. She reports that her fatigue is slowly improving now following chemotherapy and surgery. She denies any surgical incision healing concerns. She denies right breast swelling. She reports intermittent mild pain along the incisional site. She denies right arm lymphedema or range of motion limitations. She reports neuropathy in her feet and damaged fingernails from chemotherapy. She denies shortness of breath or cough. The patient denies a historyof prior radiation therapy, connective tissue disorders, or inflammatory bowel disease. Her ECOG performance status is 0. REVIEW OF SYSTEMS Review of systems was negative except as documented above. PATIENT REPORTED SYMPTOM SCREEN FATIGUE (Scale: 0 = no fatigue; 10 = worst fatigue you can imagine): 7 PAIN (Scale: 0 = no pain; 10 = worst pain you can imagine): 1 OVERALL QUALITY OF LIFE (Scale: 0 = as bad as can be; 10 = as good as can be): 4 PAST MEDICAL HISTORY Past Medical History: Diagnosis Date Anxiety Asthma Mild Intermittent (HCC) Depression Hemangioma Liver Hyperlipidemia Hypertension Essential Primary Impaired Fasting Glucose Malignant Neoplasm Of Breast Female Right (HCC) Secondary Malignant Neoplasm Lymph Node (HCC) PAST SURGICAL HISTORY Past Surgical History: Procedure Laterality Date LUMPECTOMY BREAST WITH SENTINEL NODE BIOPSY Right 11/18/2022 PORTACATH PLACEMENT THYROIDECTOMY, PARTIAL FAMILY HISTORY Family History Problem Relation Age of Onset Breast cancer Sister Liver cancer Maternal Grandfather Colon cancer Paternal Grandfather SOCIAL HISTORY Social History Socioeconomic History Marital status: Spouse name: Yehuda Number of children: 2 Tobacco Use Smoking status: Former Packs/day: 0.50 Years: 5.00 Pack years: 2.50 Types: Cigarettes Smokeless tobacco: Never Substance and Sexual Activity Alcohol use: Not Currently OBJECTIVE BP 137/74 (BP Location: Right arm, Patient Position: Sitting, Cuff Size: Regular) Pulse 83 Temp36.4 ??C (Temporal) Wt 75.8 kg PHYSICAL EXAM GENERAL: Alert and oriented in no apparent distress. The patient is here today with her , Yehuda. HEART: Regular rate and rhythm. LUNGS: Clear to auscultation bilaterally. ASSESSMENT / PLAN #1 Stage IB (cT2, cN1, cM0, G3, ER+, AR+, HER2+) invasive ductal carcinoma of the right breast s/p neoadjuvant chemotherapy and right breast lumpectomy and right lymph node excision, ypT1c, pN0, cM0,G2, ER+, AR+, HER2+ I had a discussion with the patient and her regarding her breast cancer diagnosis includinginformation regarding her staging, grade, and hormone receptors. We reviewed her oncologic history as detailed above. We also had a detailed discussion regarding the risks, benefits, and alternativesof radiotherapy in this setting. We discussed radiation therapy treatment options including treatment of the right whole breast, right whole breast with targeting of axillary levels 1 and 2 high tangents, and right whole breast and regional syl irradiation. We discussed that these radiation therapy options are typically delivered in 15 or 25 fractions followed by a boost to the lumpectomy cavity in 4 or 5 fractions for a total of 19 or 30 fractions. I discussed the logistics as well as the acute and chronic side effects of radiotherapy. The acute side effects are common and include, but are not limited to, fatigue, radiation dermatitis, breast swelling and discomfort, and possible sore throat (if neck nodes are irradiated). Long-term side effects include, but are not limited to, skin changes and texture changes of the breast, possible breastasymmetry, pulmonary scarring, radiation pneumonitis, increased risk of rib fracture with significant trauma, lymphedema, very small risk of nerve injury to the brachial plexus (if neck is irradiated), hypothyroidism (if neck is irradiated), and a very small risk of secondary malignancy. The use of mometasone cream and a moisturizing lotion applied to the skin within the treatment field during treatment was discussed. A prescription for mometasone cream will be sent to her pharmacy. The patientwas provided with a written summary of recommendations. Her questions were answered to her verbalized satisfaction. After discussion, the patient verbally stated that she would like to proceed with radiation treatment. She signed consent. She is scheduled for CT simulation today. She will be scheduled to initiate radiation treatment on Tuesday, December 27, 2022. Dr. Lal also met with the patient today, please see her attestation for details, including the final planned dosing and fractionation for radiation therapy. The patient was provided with our contact information. She will contact us with questions or concerns. She verbally expressed her understanding of the plan. EDUCATION Ready to learn, no apparent learning barriers were identified; learning preferences include listening. Explained diagnosis and treatment plan; patient expressed understanding of the content. CONSENT Discussed the risks, benefits, alternatives, and the necessity of other members of the healthcare team participating in the procedure. All questions answered and consent given. PRIMARY PROVIDER Nabila Pandya M.D. I personally spent 55 minutes in care of the patient today. Time includes both non face to face andface to face patient care. Signed by: Corazon Nation P.A.-C., M.S. 12/20/2022 10:41 AM CDT [facility] Rad[facility] Therapy Center [address] [place] [address] Associated attestation - Cami Lal M.D. - 12/20/2022 11:19 AM CDT RADIATION ONCOLOGY CONSULT I saw and evaluated the patient and participated in the herron portions of the service. I reviewed thedocumentation of Ms. Chandra SAMIRA Nation, and agree with the findings and plan. Please see Ms. Nation's detailed note for the patient's initial presentation and work-up. Briefly, Ms. Burks is a very pleasant 67 year old female who received neoadjuvant chemotherapy for her ER/AR/HER2 positive right sided breast cancer (2.3cm, 3 axillary LNs on MRI). Clinically, she responded to the treatment. She underwent lumpectomy and right SLN biopsy on November 18, 2022. She was found to have residual 20mm of IDC, Grade 2 of 3 with margins negative by less than 1mm. No LVSI. She had 8 LNs removed (7 SLNs) that were negative for tumor with fibrous scarring or histiocytic aggregates consistent with prior lymph node metastases. I have reviewed her imaging, operative and pathology reports. On exam, she appears well. No cervical, supra/infraclavicular or axillary adenopathy. She has healed well with very well healed incisions. No seroma is appreciated. No worrisome lumps, masses or skinchanges are noted in either breast. We discussed the findings above and below in this note with the patient and her . We discussed her treatment alternatives including high tangents (15 treatments) vs comprehensive syl irradiation (25 treatments) both followed by a boost of 4-5 fractions. We discussed the rationale, risks, side effects and goals of radiation therapy. We discussed the rationale, risks, side effects and adjuvant goals of radiation therapy. We discussed the acute as well as long-term risks, including, but not limited to fatigue, skin erythema/desquamation, sore throat, fibrosis of the breast/chest wall, lymphedema, small risks of bone fracture, radiation pneumonitis, cardiac disease, brachial plexopathyand secondary malignancies. They understood and their questions were answered. She wished to proceed with treatment and favoredthe high tangents. We tentatively plan on delivering 5005 cGy in 19 fractions starting next Tuesday or Tuesday. My thanks to Drs.Sebastián Zambrano and Schaefer for the opportunity to participate in this patient'scare. EDUCATION Ready to learn, no apparent learning barriers were identified; learning preferences include listening. Explained diagnosis and treatment plan; patient expressed understanding of the content. CONSENT Discussed the risks, benefits, alternatives, and the necessity of other members of the healthcare team participating in the procedure. All questions answered and consent given. DIAGNOSIS #1 Stage IB (cT2, cN1, cM0, G3, ER+, AR+, HER2+) invasive ductal carcinoma of the right breast s/p neoadjuvant chemotherapy and right breast lumpectomy and right lymph node excision, ypT1c, pN0, cM0,G2, ER+, AR+, HER2+ Signed by: Cami Lal M.D. 12/20/2022 11:18 AM CDT Radiation Oncology [facility] Radiation Therapy Center [address] [place] [address] documented in this encounter Plan of Treatment Not on file documented as of this encounter Visit Diagnoses Diagnosis Malignant Neoplasm Of Breast Lower Outer Quadrant Female Right (HCC)- Primary documented in this encounter
--- OUTSIDE RECORDS SUMMARY | 2023-06-03 09:01 | XMS_ITS | Encounter Summary ---
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 [address] [place] [phone] Med Refill Social History Tobacco Use Types Packs/Day Years Used Date Smoking Tobacco: Never Assessed Sex and Gender Information Value Date Recorded Sex Assigned at Not on file Gender Identity Not on file Sexual Orientation Not on file documented as of this encounter Miscellaneous Notes * Telephone Encounter - Cherelle Conway - 08/27/2022 5:29 PM CDT Nurse review: Unable to forward request to provider; Discrepancy; Request is not on the current medlist. Primary Provider: No primary care provider on file. Requested Prescriptions Pending Prescriptions Disp Refills ondansetron (ZOFRAN) 8 mg tablet [Pharmacy Med Name: ONDANSETRON HCL 8 MG TABLET] 30 tablet Si MG ORALLY EVERY 8 HOURS NEEDED FOR NAUSEA Pharmacy (include location): [facility]/pharmacy #[id number] - [place], [place] - [address] documented in this encounter Plan of Treatment Not on file documented as of this encounter Visit Diagnoses Diagnosis Malignant Neoplasm Of Unspecified Site Of Laterality Unknown Female Breast (HCC) documented in this encounter
--- OUTSIDE RECORDS SUMMARY | 2023-06-03 09:01 | XMS_ITS | Encounter Summary ---
Author Name Unknown Organization [facility] Address [address] [place] [address] Care Team Providers Care Commercial Litigation Associate Name Role Phone Unavailable Primary Care Provider Unavailabl e Reason for Referral * Radiation Therapy (Routine) - Authorized Specialty Diagnoses / Procedures Referred By Donell manning Referred To Contact Diagnoses Malignant Neoplasm Of Breast Lower Outer Quadrant Female Right (HCC) Procedures Management Visit Cami Lal M.D. [address] [place] [address] [facility] Region Referral ID Status Reason Start Date Expiration Date V isits Requested Visits Authorized [id number] Authorized 12/14/2022 12/14/2023 10 10 Reason for Visit * Radiation Therapy (Routine) - Authorized Specialty Diagnoses / Procedures Referred By Donell manning Referred To Contact Diagnoses Malignant Neoplasm Of Breast Lower Outer Quadrant Female Right (HCC) Procedures Management Visit Cami Lal M.D. [address] [place] [address] [facility] Region Referral ID Status Reason Start Date Expiration Date V isits Requested Visits Authorized [id number] Authorized 12/14/2022 12/14/2023 10 10 Encounter Details Date Type Department Care Team (Latest Contact Info) Description 12/28/2022 9:44 AM CDT - 12/28/2022 3:16 PM CDT Hospital Encounter Department of Radiation Oncology in [place], [place] [address] [place] [phone] Cami Lal M.D. [address] [place] [address] Malignant Neoplasm Of Breast Lower Outer Quadrant [...] - - Temperature 36 ??C (96.8 ??F) 12/28/2022 10:07 AM CDT Respiratory Rate - - Oxygen Saturation - - Inhaled Oxygen Concentration - - Weight 75.9 kg (167 lb 5.3 oz) 12/28/2022 10:07 AM CDT Height - - Body Mass [...] 1 tablet by mouth. 0 06/24/2022 omega 7-rwm-pzj-fish oil 1,200 (144-216) mg capsule Take 1 [...] 11/10/2022 12/30/2022 documented as of this encounter Progress Notes * Cami Lal M.D. - 12/28/2022 10:15 AM CDT ATTESTATION FOR MANAGEMENT VISIT I saw and evaluated the patient and participated in the herron portions of the service as noted below.I reviewed the documentation of Ms. aSndy Paige RN and agree with the findings and plan. The patient appears well on exam. We will continue with radiation as planned and monitor weekly. She had forgotten to last picker her Mometasone cream at the pharmacy. I wrote it down for her as a reminder and she will get it today or tomorrow and start it in addition to her regular lotions. Cami Lal M.D., 12/28/2022 SUBJECTIVE REASON FOR VISIT Evaluation for side [...] (cGy) First Treatment Last Treatment Elapsed Days [id number] [phone] 12/27/2022 12/28/2022 1 Course Summary 12/27/2022 12/28/2022 1 The patient was seen and examined today with Dr. Lal. The patient reports that she is doing well. Patient denies skin changes or new symptoms. PATIENT REPORTED SYMPTOM SCREEN FATIGUE (Scale: 0 = no fatigue; 10 = worst fatigue you can imagine): 7 PAIN (Scale: 0 = no pain; 10 = worst pain you can imagine): 1 OVERALL QUALITY OF LIFE (Scale: 0 = as bad as can be; 10 = as good as can be): 6 OBJECTIVE Temp 36 ??C (Temporal) Wt 75.9 kg PHYSICAL EXAM General: Alert and oriented in no apparent distress. ASSESSMENT / PLAN #1 Stage IB (cT2, cN1, cM0, G3, ER+, RI+, HER2+) invasive ductal carcinoma of the right breast s/p neoadjuvant chemotherapy and right breast lumpectomy and right lymph node excision, ypT1c, pN0, cM0,G2, ER+, RI+, HER2+ #2 High tangents radiotherapy to the right breast initiated on December 27, 2022; anticipated date of completion is on January 20, 2023 The patient is tolerating radiation treatment well overall. Mometasone is to be applied twice a day; wait at least 15 minutes and then moisturizing lotion twice a day to treatment field area. Patientwill be seen in weekly management visits. She will contact us with any questions or concerns. We will continue with radiation treatment as planned. Signed by: Sandy Paige R.N. 12/28/2022 10:35 AM CDT documented in this encounter Plan of Treatment Scheduled Orders Name Type Priority Associated Diagnoses Orde r Schedule Management Visit Radiation Oncology Routine Malignant Neoplasm Of Breast Lower Outer Quadrant Female Right (HCC) Once for 1 Occurrences starting 12/28/2022 until 12/28/2022 documented as of this encounter Visit Diagnoses Diagnosis Malignant Neoplasm Of Breast Lower Outer Quadrant Female Right (HCC) documented in this encounter
--- OUTSIDE RECORDS SUMMARY | 2023-06-03 09:01 | XMS_ITS | Encounter Summary ---
Author Name Unknown Organization [facility] Address [address] [place] [address] Care Team Providers Care Air Pollution Auditor Name Role Phone Unavailable Primary Care Provider Unavailabl e Reason for Referral * Radiation Therapy (Routine) - Closed Specialty Diagnoses / Procedures Referred By Donell manning Referred To Contact Diagnoses Malignant Neoplasm Of Breast Lower Outer Quadrant Female Right (HCC) Procedures Initial Rad Onc Treatment Planning CT Simulation Cami Lal M.D. [address] [place] [address] [facility] Region Referral ID Status Reason Start Date Expiration Date Visits Re quested Visits Authorized [id number] Closed 12/14/2022 12/14/2023 1 1 Reason for Visit * Radiation Therapy (Routine) - Closed Specialty Diagnoses / Procedures Referred By Donell manning Referred To Contact Diagnoses Malignant Neoplasm Of Breast Lower Outer Quadrant Female Right (HCC) Procedures Initial Rad Onc Treatment Planning CT Simulation Cami Lal M.D. [address] [place] [address] [facility] Region Referral ID Status Reason Start Date Expiration Date Visits Re quested Visits Authorized [id number] Closed 12/14/2022 12/14/2023 1 1 Encounter Details Date Type Department Care Team (Latest Contact Info) Description 12/20/2022 10:00 AM CDT - 12/20/2022 11:26 AM CDT Hospital Encounter Department of Radiation Oncology [address] [place] [address] Cami Lal M.D. [address] [place] [address] Malignant Neoplasm Of Breast Lower Outer Quadrant [...] capsule Take 1 tablet by mouth. 0 cholecalciferol (VITAMIN D3) 1,250 mcg (50,000 Unit) [...] 1 tablet by mouth. 0 06/24/2022 omega 6-yom-cpm-fish oil 1,200 (144-216) mg capsule Take 1 [...] 11/10/2022 12/30/2022 documented as of this encounter Procedure Notes * Rosa Murray, RTT - 12/20/2022 10:00 AM CDTAssociated Order(s): Initial Rad Onc Treatment Planning CT Simulation Pre-Procedure Diagnose(s): Malignant Neoplasm Of Breast Lower Outer Quadrant Female Right (HCC) Post-Procedure Diagnose(s): Malignant Neoplasm Of Breast Lower Outer Quadrant Female Right (HCC) Initial Rad Onc Treatment Planning CT Simulation Performed by: Cami Lal M.D. Authorized by: Cami Lal M.D. Simulation was performed under physician supervision based on physician order in preparation for radiation therapy. Physician was immediately available to provide assistance and direction throughout the procedure. Written consent for treatment was completed or confirmed. The patient was appropriately identified and placed in the treatment position using the necessary immobilization to ensure a reproducible treatment position. Reference mcdonnell were placed to facilitate marking of isocenter. Area scanned:Chest Contrast used for the simulation procedure: None Patient position:head first supine and arms up Custom immobilization: Vac-cristian and Knee Cushion Motion management: None Bolus: No CT guidance: Following positioning of the patient, a series of slices was obtained to be utilized in treatment planning. CT images were transferred to the Mobile Shareholder treatment planning system, after a reference isocenter was determined and marked. Segmentation and treatment planning will take place prior to treatment delivery. Patient set up and imaging was appropriate and completed without incident. Harnessmaker Apprentice use:No documented in this encounter Plan of Treatment Not on file documented as of this encounter Procedures Procedure Name Priority Date/Time Associated Diagnosis Comments INITIAL RAD ONC TREATMENT PLANNING CT SIMULATION Routine 12/20/2022 10:00 AM CDT Malignant Neoplasm Of Breast Lower Outer Quadrant Female Right (HCC) documented in this encounter Results * Initial Rad Onc Treatment Planning CT Simulation (12/20/2022 10:00 AM CDT) Narrative JOSE FRANCISCO MARQUES - 12/20/2022 10:00 AM CDT Rosa Murray, RTT ? 12/20/2022 10:28 AM Initial Rad Onc Treatment Planning CT Simulation Performed by: Cami Lal M.D. Authorized by: Cami Lal M.D. ?? Cami Lal M.D. RADIATION ONCOLOG Y ORDERABLES JOSE FRANCISCO MARQUES na documented in this encounter Visit Diagnoses Diagnosis Malignant Neoplasm Of Breast Lower Outer Quadrant Female Right (HCC) documented in this encounter
--- OUTSIDE RECORDS SUMMARY | 2023-06-03 09:01 | XMS_ITS | Clinical Summary ---
Author Name Unknown Organization [facility] Address [place], [place] [address] Care Team Providers Care Cocktail Lounge Manager Name Role Phone September, Kelly Darling RN, BSN Unavailable [phone] Nabila Pandya MD Primary Care Provider [phone] Allergies No known active allergies Medications Medication Sig Dispensed Refills Start Date End Date Status cholecalciferol (VITAMIN D) 1,000 unit capsule Take 1 capsule by mouth once daily. 0 09/02/2014 Active omega-3 fatty acids-vitamin E (FISH OIL) 1,000 mg cap Take 1 capsule by mouth. 0 09/02/2014 Active loratadine-pseudoephe drine, 10-240 mg, 24 hr (CLARITIN-D 24 HOUR) 10-240 mg per tablet Take 1 tablet by mouth once daily. As needed for allergies 0 09/02/2014 Active losartan (COZAAR) 50 mg tablet TAKE 1.5 TABLETS BY MOUTH DAILY. 0 01/16/2021 Active atorvastatin (LIPITOR) 20 mg tablet Take 20 mg by mouth at bedtime. 0 01/14/2021 Active Active Problems Problem Noted Date Diagnosed Date Hemangioma of liver 09/27/2015 Overview: Observation. LFT recheck 01/2016, repeat liver imaging in 6 to 9 months (03/2016). Calculus of gallbladder 09/27/2015 Elevated LFTs 09/26/2015 RUQ pain 09/26/2015 Seborrheic dermatitis 10/18/2014 Resolved Problems Problem Noted Date Diagnosed Date Resolved Date Hepatoma 09/26/2015 09/27/2015 Encounters Date Type Department Care Team Description 03/25/2023 9:00 AM CDT Orders Only [facility] [address] [place] [address] 2 scans: (2-Ord) ECHO TTE COMPLETE WO CONTRAST ([id number]) 03/25/2023 Travel from Last 3 Months Immunizations Name Administration Dates Next Due Influenza Virus, Unspecified 05/06/2009,02/22/19 96 Tdap 07/11/2012 Family History Medical History Relation Name Comments Heart Disease Father ND Hypertension Mother healthy Cancer-colon Paternal Grandfather Relation Name Status Comments Father Mother Paternal Grandfather Social History Tobacco Use Types Packs/Day Years Used Date Smoking Tobacco: Never Smokeless Tobacco: Never Tobacco Cessation:Counseling Given: Yes Alcohol Use Standard Drinks/Week Comments Yes 0 (1 standard drink = 0.6 oz pure alcohol) 10/13/15: not drinking at this time, none since may 2015 Sex and Gender Information Value Date Recorded Sex Assigned at Not on file Gender Identity Not on file Sexual Orientation Not on file Obstetrics History Last Filed Vital Signs Vital Sign Reading Time Taken Comments Blood Pressure 130/72 11/10/2018 10:00 AM CDT Pulse 70 11/10/2018 10:00 AM CDT Temperature 36.6 ??C (97.8 ??F) 03/17/2017 11:05 AM C DT Respiratory Rate 16 10/13/2015 7:57 AM CDT Oxygen Saturation 99% 03/17/2017 11:05 AM CDT Inhaled Oxygen Concentration - - Weight 95.3 kg (210 lb) 03/17/2017 11:05 AM CDT Height 167.6 cm (5' 6) 03/17/2017 11:05 AM CDT Body Mass Index 33.89 03/17/2017 11:05 AM CDT Plan of Treatment Health Maintenance Due Date Last Done Comments Zoster (shingles) series for age 50+ (1 of 2) 2004 Colonoscopy through age 75 05/23/201305/23 (Completed outside of [facility]) Mammogram for age 45-75 07/11/2013 07/11/19 13 (Completed outside of [facility]) Depression screening for age 12+ 09/25/2016 09/26/19 16, 09/26/2015 BMI (ht and wt on same day) for age 18+ 03/17/2018 03/17/2017, 09/25/2015 DEXA/DXA scan for age 65+ 08/27/2019 Medicare Wellness for age 65+ 08/27/2019 Pneumococcal series for age 65+ (1 of 1 - PCV) 08/27/2019 Lipids for age 45-75 09/03/2019 09/02/2014 Tetanus booster 07/11/2022 07/11/2012 Influenza for age 65+ 01/21/2023 05/06/2009, 996 Tdap Completed 07/11/2012 Hepatitis C screening for ag e 18-79 Completed 09/26/2015 COVID-19 vaccine series Completed 03/22/20 23, 03/09/2022, 09/08/2021, Additional history exists Procedures Procedure Name Priority Date/Time Associated Diagnosis Comments ECHO TTE COMPLETE WO CONTRAST Routine 03/25/2023 9:57 AM CDT Breast cancer (HC) from Last 3 Months Results * ECHO TTE COMPLETE WO CONTRAST (03/25/2023 9:57 AM CDT) AORTIC VALVE MEAN PG 12 mmHg EJECTION FRACTION 79 % PEAK TR VELOCITY 2.2 m/s LVEDD 4.9 cm EJECTION FRACTION 65 - 70% Anatomical Region Laterality Modality Ultrasound 03/25/2023 9:11 AM CDT Narrative 03/25/2023 10:26 AM CDT ECHOCARDIOGRAM LYNNETTE Israel TELMACLAUDIAROBE ?Accession#: ?? [id number] : ?1955 67 years Study Date: ?? 03/25/2023 9:11:39 AM Gender: F ? BP: ? 127/76 mmHg Height: 168.00 cm ? BSA: ?1.87 m? ? ? Weight: 77.00 kg ?Tech: ? MTS ?Referring MD: ANTHONY RODRIGUES Site: ? [facility] Reading Location: MOBILE OP Patient Location: Outpatient. Procedure: 2D. Indication for study: Breast cancer (HC) Cardiac Rhythm: Regular.Study quality: Good. Imaging limitations: This study was subject to imaging limitations due to a prominent lung artifact. Final Impressions: 1. Current global longitudinal strain is normal at -21 % (revised measurements). 2. Normal LV size, normal wall thickness, normal global systolic function with an estimated EF of 65 - 70%. 3. Right ventricular cavity size is normal, global systolic RV function is normal. 4. The mitral valve is normal, trace mitral regurgitation. 5. No pericardial effusion. 6. The inferior vena cava is normal sized, respiratory size variation greater than 50%. 7. The aortic valve is sclerotic, mild stenosis and no regurgitation. Comparison Compared to prior exam images of 12/31/2022, there has been no significant change. Chamber Sizes and Function Normal left ventricular size, normal wall thickness, normal global systolic function with an estimated EF of 65 - 70%. Left ventricular wall motion not well visualized. No definite resting regional wall motion abnormality seen. Left atrial size is normal. Right ventricular cavity size is normal, global systolic RV function is normal. RV wall thickness is normal. The right atrium is normal. Right atrial volume index is 15 ml/m? ? ?. Right atrial area is 14 cm? ? ?. The pulmonary artery is of normal size and origin. The sinus of Valsalva is normal sized. The ascending aorta is normal sized. Global longitudinal strain analysis was performed using [employer] software. Current global longitudinal strain is normal at -21 %. Valves, RV Pressures and Diastolic Function The aortic valve is sclerotic, mild stenosis and no regurgitation. The mitral valve is normal in structure, trace mitral regurgitation. Normal diastolic function. The tricuspid valve is normal in structure. Tricuspid regurgitation is trace regurgitation. The tricuspid regurgitant velocity is 2.2 m/s, the estimated right ventricular systolic pressure is 20 mmHg plus right atrial pressure. The pulmonic valve is normal. No pulmonary regurgitation. Masses, Effusion, Shunts There is no pericardial effusion. The inferior vena cava is normal sized, respiratory size variation greater than 50%. No left to right shunting was detected by limited color flow Doppler interrogation of the interatrial septum. MEASUREMENTS AND CALCULATIONS 2-D Measurements and LV Function: LVID (d) 4.9 cm LV FS% (2D) ??33 % LVID (s) 3.3 cm HR ? 89 bpm IVS (d) ??0.8 cm LA Vol index 25 ml/m2 LVPW (d) 0.9 cm RA Vol index 15 ml/m2 Ao Sinus 3.0 cm RA area ?14 cm? ? ? Asc Ao ?? 3.7 cm GLS current ??-21% LA ? 3.7 cm GLS System ?? TomTec. Diastology: Mitral ?Tissue Doppler ?Pulmonary veins E Peak 0.7 m/s ??e', Septum ? 0.08 m/s Pulm s ?81.9 cm/s A Peak 0.8 m/s ??e', Lateral ?0.10 m/s Pulm d ?54.2 cm/s E/A ?0.9 ?E/e' Average ?? 7.94 ? Pulm s/d ratio ??1.51 DT ? 287 msec Aortic Valve: Vmax ? 2.2 m/s Max PG ?20 mmHg VTI ?0.47 m ??Mean PG ?? 12 mmHg LVOT V max 1.2 m/s Dim Index 0.53 LVOT VTI ?? 0.25 m Mitral Valve: MVA ?2.6 cm? ? ? MV P 1/2 83 msec Tricuspid Valve and estimated PA pressures: TR Vmax 2.2 m/s TAPSE 2.4 cm TR maxG 20 mmHg . This study was interpreted by an IAC accredited facility. CC: [facility] ([facility]) [facility]. ??Final ?? Procedure Note Rodrigo Ramirez MD - 03/25/2023 ECHOCARDIOGRAM LYNNETTE GABRIEL : 1955 67 years Study Date: 03/25/2023 9:11:39 AM Gender: F BP: 127/76 mmHg Height: 168.00 cm BSA: 1.87 m? ? ? Weight: 77.00 kg Tech: [facility] Referring MD: ANTHONY RODRIGUES Site: [facility] Reading Location: MOBILE OP Patient Location: Outpatient. Procedure: 2D. Indication for study: Breast cancer (HC) Cardiac Rhythm: Regular.Study quality: Good. Imaging limitations: This study was subject to imaging limitations due toa prominent lung artifact. Final Impressions: 1. Current global longitudinal strain is normal at -21 % (revisedmeasurements). 2. Normal LV size, normal wall thickness, normal global systolic functionwith an estimated EF of 65 - 70%. 3. Right ventricular cavity size is normal, global systolic RV functionis normal. 4. The mitral valve is normal, trace mitral regurgitation. 5. No pericardial effusion. 6. The inferior vena cava is normal sized, respiratory size variationgreater than 50%. 7. The aortic valve is sclerotic, mild stenosis and no regurgitation. Comparison Compared to prior exam images of 12/31/2022, there has been no significantchange. Chamber Sizes and Function Normal left ventricular size, normal wall thickness, normal globalsystolic function with an estimated EF of 65 - 70%. Left ventricular wallmotion not well visualized. No definite resting regional wall motionabnormality seen. Left atrial size is normal. Right ventricular cavitysize is normal, global systolic RV function is normal. RV wall thicknessis normal. The right atrium is normal. Right atrial volume index is 15ml/m? ? ?. Right atrial area is 14 cm? ? ?. The pulmonary artery is of normalsize and origin. The sinus of Valsalva is normal sized. The ascendingaorta is normal sized. Global longitudinal strain analysis was performedusing [employer] software. Current global longitudinal strain is normal at -21%. Valves, RV Pressures and Diastolic Function The aortic valve is sclerotic, mild stenosis and no regurgitation. Themitral valve is normal in structure, trace mitral regurgitation. Normaldiastolic function. The tricuspid valve is normal in structure. Tricuspidregurgitation is trace regurgitation. The tricuspid regurgitant velocityis 2.2 m/s, the estimated right ventricular systolic pressure is 20 mmHgplus right atrial pressure. The pulmonic valve is normal. No pulmonaryregurgitation. Masses, Effusion, Shunts There is no pericardial effusion. The inferior vena cava is normal sized,respiratory size variation greater than 50%. No left to right shunting wasdetected by limited color flow Doppler interrogation of the interatrialseptum. MEASUREMENTS AND CALCULATIONS 2-D Measurements and LV Function: LVID (d) 4.9 cm LV FS% (2D) 33 % LVID (s) 3.3 cm HR 89 bpm IVS (d) 0.8 cm LA Vol index 25 ml/m2 LVPW (d) 0.9 cm RA Vol index 15 ml/m2 Ao Sinus 3.0 cm RA area 14 cm? ? ? Asc Ao 3.7 cm GLS current -21% LA 3.7 cm GLS System [employer]. Diastology: Mitral Tissue Doppler Pulmonary veins E Peak 0.7 m/s e', Septum 0.08 m/s Pulm s 81.9 cm/s A Peak 0.8 m/s e', Lateral 0.10 m/s Pulm d 54.2 cm/s E/A 0.9 E/e' Average 7.94 Pulm s/d ratio 1.51 DT 287 msec Aortic Valve: Vmax 2.2 m/s Max PG 20 mmHg VTI 0.47 m Mean PG 12 mmHg LVOT V max 1.2 m/s Dim Index 0.53 LVOT VTI 0.25 m Mitral Valve: MVA 2.6 cm? ? ? MV P 1/2 83 msec Tricuspid Valve and estimated PA pressures: TR Vmax 2.2 m/s TAPSE 2.4 cm TR maxG 20 mmHg . This study was interpreted by an IAC accredited facility. CC: [facility] ([facility]) [facility]. Final Anthony Rodrigues MD ECHO ORD from Last 3 Months Care Teams Cocktail Lounge Manager Relationship Specialty Start Date End Date Nabila Pandya MD [address] [place] [address] PCP - General Emergency Medicine 07/01/22September, Kelly Darling RN, BSN [address] [address] [facility] 10/10/15
--- OUTSIDE RECORDS SUMMARY | 2023-06-03 09:01 | XMS_ITS | Encounter Summary ---
Author Name Unknown Organization [facility] Address [address] [place] [address] Care Team Providers Care Box Person Name Role Phone Unavailable Primary Care Provider Unavailabl e Encounter Details Date Type Department Care Team (Latest Contact Info) Description 12/28/2022 9:43 AM CDT Hospital Encounter Department of Radiation Oncology in [place], [place] [address] [place] [phone] Cami Lal M.D. [address] [place] [address] Discharge Disposition: Home or Self Care Social [...] 1 tablet by mouth. 0 06/24/2022 omega 8-wgd-yzk-fish oil 1,200 (144-216) mg capsule Take 1 [...]
--- OUTSIDE RECORDS SUMMARY | 2023-06-03 09:01 | XMS_ITS | Encounter Summary ---
Author Name Unknown Organization [facility] Address [address] [place] [address] Care Team Providers Care Cathode Maker Name Role Phone Unavailable Primary Care Provider Unavailabl e Encounter Details Date Type Department Care Team (Latest Contact Info) Description 12/27/2022 11:03 AM CDT - 12/27/2022 11:59 PM CDT Hospital Encounter Department of Radiation Oncology in [place], [place] [address] [place] [phone] Cami Lal M.D. [address] [place] [address] Discharge Disposition: Home or Self Care Social [...] 1 tablet by mouth. 0 06/24/2022 omega 1-ism-pai-fish oil 1,200 (144-216) mg capsule Take 1 [...]
--- NOTE | 2023-06-03 09:15 | CRLHL7_ITS ---
For Patients: As a result of the Century Cures Act, medical imaging exams and procedure reports are released immediately into your electronic medical record. You may view this report before your referring provider. If you have questions, please contact your health care provider. BILATERAL SCREENING MAMMOGRAM WITH COMPUTER-AIDED DETECTION AND TOMOSYNTHESIS TECHNIQUE: CC and MLO views were obtained. These mammographic images have been obtained using full-field digital technique. These mammographic images were interpreted with the benefit of computer-aided detection. Breast Tomosynthesis was used in this interpretation. COMPARISON FILM: 06/07/22. FINDINGS: There are scattered areas of fibroglandular density IMPRESSION: There is no radiographic evidence for malignancy. ASSESSMENT: BI-RADS Category 2: Benign RECOMMENDATION: Routine screening mammogram in 1 year. A lay language report of this examination will be provided to the patient. Moses Calzada M.D. Diagnostic Radiologist [email or web address] Transcribed: 4:38 [email or web address] song/Dictated by: Moses Calzada MD @ 06/08/2023 12:22:00 PM (Electronically Signed)
== END 2023-06-03 08:58 | disposition home or self-care (01) ==
LOC: MAMMO 08:57
PROVIDERS: PCP Emergency Medicine; Referring Provider Emergency Medicine; Visit Provider Internal Medicine Hematology & Oncology
DX: Z12.31 Encounter for screening mammogram for malignant neoplasm of breast (principal)
CPT/HCPCS: 77063; 77067

== ENCOUNTER 2023-06-22 10:34 | Outpatient (CLI) | payer MEDICARE, BC, SELFPAY ==
--- OUTSIDE RECORDS SUMMARY | 2023-06-22 10:45 | XMS_ITS | Encounter Summary ---
Author Name Unknown Organization [facility] Address [address] [place] [address] Care Team Providers Care Float Builder Name Role Phone Unavailable Primary Care Provider Unavailabl e Encounter Details Date Type Department Care Team (Latest Contact Info) Description 01/20/2023 9:29 AM CDT - 01/20/2023 11:59 PM CDT Hospital Encounter Department of Radiation Oncology in [place], [place] [address] [place] [phone] Cami Lal M.D. [address] [place] [address] Discharge Disposition: Home or Self Care Social [...] 1 tablet by mouth. 0 06/24/2022 omega 8-gqw-ode-fish oil 1,200 (144-216) mg capsule Take 1 [...]
--- OUTSIDE RECORDS SUMMARY | 2023-06-22 10:45 | XMS_ITS | Encounter Summary ---
Author Name Unknown Organization [facility] Address [address] [place] [address] Care Team Providers Care Car Supplier Name Role Phone Unavailable Primary Care Provider Unavailabl e Encounter Details Date Type Department Care Team (Late st Contact Info) Description 01/20/2023 Documentation Department of Radiation Oncology in [place], [place] [address] [place] [phone] Cami Lal M.D. [address] [place] [address] Social History Tobacco Use Types Packs/Day Years [...] Miscellaneous Notes * Radiation Completion Notes - Sadny Paige RDonatoN. - 01/20/2023 11:59 PM CDT DIAGNOSIS: 1. 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
--- OUTSIDE RECORDS SUMMARY | 2023-06-22 10:45 | XMS_ITS | Encounter Summary ---
Author Name Unknown Organization [facility] Address [address] [place] [address] Care Team Providers Care Duck Farmer Name Role Phone Unavailable Primary Care Provider Unavailabl e Encounter Details Date Type Department Care Team (Latest Contact Info) Description 01/18/2023 9:26 AM CDT - 01/18/2023 11:59 PM CDT Hospital Encounter Department of Radiation Oncology in [place], [place] [address] [place] [phone] Cami Lal M.D. [address] [place] [address] Discharge Disposition: Home or Self Care Social [...] 1 tablet by mouth. 0 06/24/2022 omega 7-epe-luy-fish oil 1,200 (144-216) mg capsule Take 1 [...]
--- OUTSIDE RECORDS SUMMARY | 2023-06-22 10:45 | XMS_ITS | Encounter Summary ---
Author Name Unknown Organization [facility] Address [address] [place] [address] Care Team Providers Care Geriatric Physician Name Role Phone Unavailable Primary Care Provider Unavailabl e Encounter Details Date Type Department Care Team (Latest Contact Info) Description 01/13/2023 9:19 AM CDT - 01/13/2023 11:59 PM CDT Hospital Encounter Department of Radiation Oncology in [place], [place] [address] [place] [address] Cami Lal M.D. [address] [place] [address] Discharge Disposition: Home or Self Care Social [...] 1 tablet by mouth. 0 06/24/2022 omega 5-szm-hla-fish oil 1,200 (144-216) mg capsule Take 1 [...]
--- OUTSIDE RECORDS SUMMARY | 2023-06-22 10:45 | XMS_ITS | Encounter Summary ---
Author Name Unknown Organization [facility] Address [address] [place] [address] Care Team Providers Care Zipper Setter Chainstitch Name Role Phone Unavailable Primary Care Provider Unavailabl e Encounter Details Date Type Department Care Team (Latest Contact Info) Description 01/17/2023 9:31 AM CDT - 01/17/2023 11:59 PM CDT Hospital Encounter Department of Radiation Oncology in [place], [place] [address] [place] [address] Cami Lal M.D. [address] [place] [address] Discharge Disposition: Home or Self Care Social [...] 1 tablet by mouth. 0 06/24/2022 omega 2-wde-eds-fish oil 1,200 (144-216) mg capsule Take 1 [...]
--- OUTSIDE RECORDS SUMMARY | 2023-06-22 10:45 | XMS_ITS | Encounter Summary ---
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 [address] [place] [address] [facility] Region Referral ID Status Reason Start Date Expiration Date V isits Requested Visits Authorized [id number] Authorized 12/14/2022 12/14/2023 10 10 Encounter Details Date Type Department Care Team (Latest Contact Info) Description 01/18/2023 9:26 AM CDT - 01/18/2023 1:16 PM CDT Hospital Encounter Department of Radiation Oncology in [place], [place] [address] [place] [address] Cami Lal M.D. [address] [place] [address] Malignant Neoplasm Of Breast Lower Outer Quadrant [...] 1 tablet by mouth. 0 06/24/2022 omega 3-jnj-dex-fish oil 1,200 (144-216) mg capsule Take 1 [...] (cGy) First Treatment Last Treatment Elapsed Days [id number] 267 4005 4005 12/27/2022 01/14/2023 18 [id number] 682 310 1530 01/17/2023 01/18/2023 1 Treatment Site Summary 4505 [...] Stage IB (cT2, cN1, cM0, G3, ER+, NE+, HER2+) invasive ductal carcinoma of the right breast s/p neoadjuvant chemotherapy and right breast lumpectomy and right lymph node excision, ypT1c, pN0, cM0,G2, ER+, NE+, HER2+ #2 High tangents radiotherapy to the [...] have ongoing follow with Dr. Zambrano at [facility]. She is scheduled for her next visit [...]
--- OUTSIDE RECORDS SUMMARY | 2023-06-22 10:45 | XMS_ITS | Clinical Summary ---
Author Name Unknown Organization [facility] Address [address] [place] [address] Care Team Providers Care Mva Still Operator Name Role Phone Unavailable Primary Care Provider Unavailabl e Source Comments Patient records contain information from all sites at [facility]. For routine questions regarding patient records, call [phone] during business hours, M-F 8:00 AM - 5:00 PM Central Time. Record requests for emergency care only can be directed to [phone] at any time.[facility] Allergies Active Allergy Reactions Criticality Noted Date [...] tablet by mouth. 0 06/24/2022 Active omega 5-kmi-zwt-fish oil 1,200 (144-216) mg capsule Take 1 [...] from 06/11/2022:Stage IB(cT2, cN1(f), cM0, G3, ER+, AL+, HER2+) - Unsigned Pathologic stage from 11/18/2022:No Stage Recommended(ypT1c, pN0(sn), cM0, G2, ER+, AL+, HER2+) - Unsigned Family History Medical History [...] 1960 Zoster Vaccines (1 of 2) 1973 DTaP,Tdap,and Td Vaccines (3 - Td or Tdap) 07/11/2022 07/11/2012, 07/01/2012 Depression Screening (Annual PHQ-2) 05/23/2023 Fall Risk Screen (Annual) 05/23/2023 Mammogram 11/19/2023 11/18/2022, 10/22, 11/18/2022, Additional history exists COVID-19 Vaccine Completed 03/22/2023, , 09/08/2021, Additional history exists Influenza Vaccine Completed 03/22/2023, , 03/24/2021, Additional history exists HPV Vaccines Aged Out No longer eligi ble based on patient's age to complete this topic
--- OUTSIDE RECORDS SUMMARY | 2023-06-22 10:45 | XMS_ITS | Encounter Summary ---
Author Name Unknown Organization [facility] Address [address] [place] [address] Care Team Providers Care Water Ski Assembler Name Role Phone Unavailable Primary Care Provider Unavailabl e Encounter Details Date Type Department Care Team (Latest Contact Info) Description 01/19/2023 9:28 AM CDT - 01/19/2023 11:59 PM CDT Hospital Encounter Department of Radiation Oncology in [place], [place] [address] [place] [phone] Cami Lal M.D. [address] [place] [address] Discharge Disposition: Home or Self Care Social [...] 1 tablet by mouth. 0 06/24/2022 omega 3-vxo-hpp-fish oil 1,200 (144-216) mg capsule Take 1 [...]
--- OUTSIDE RECORDS SUMMARY | 2023-06-22 10:45 | XMS_ITS ---
Author Name Unknown Organization [facility] Address [address] [place] [address] Care Team Providers Care Drug Abuse Social Worker Name Role Phone Unavailable Unavailable Unavailable Surgery Details Not on file Complications Check Surgery Details section. Procedure Estimated Blood Loss Check Surgery Details section. Procedure Findings Check Surgery Details section. Procedure Specimens Taken Check Surgery Details section.
--- OUTSIDE RECORDS SUMMARY | 2023-06-22 10:45 | XMS_ITS | Encounter Summary ---
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 [address] [place] [address] [facility] Region Referral ID Status Reason Start Date Expiration Date V isits Requested Visits Authorized [id number] Authorized 12/14/2022 12/14/2023 10 10 Encounter Details Date Type Department Care Team (Latest Contact Info) Description 01/12/2023 11:26 AM CDT - 01/12/2023 4:21 PM CDT Hospital Encounter Department of Radiation Oncology in [place], [place] [address] [place] [phone] Cami Lal M.D. [address] [place] [address] Malignant Neoplasm Of Breast Lower Outer Quadrant [...] 1 tablet by mouth. 0 06/24/2022 omega 5-hka-onz-fish oil 1,200 (144-216) mg capsule Take 1 [...] (cGy) First Treatment Last Treatment Elapsed Days [id number] 3471 4005 12/27/2022 01/12/2023 16 Course [...] Stage IB (cT2, cN1, cM0, G3, ER+, UT+, HER2+) invasive ductal carcinoma of the right breast s/p neoadjuvant chemotherapy and right breast lumpectomy and right lymph node excision, ypT1c, pN0, cM0,G2, ER+, UT+, HER2+ #2 High tangents radiotherapy to the [...]
--- OUTSIDE RECORDS SUMMARY | 2023-06-22 10:45 | XMS_ITS | Encounter Summary ---
Author Name Unknown Organization [facility] Address [address] [place] [address] Care Team Providers Care Weight Loss Consultant Name Role Phone Unavailable Primary Care Provider Unavailabl e Encounter Details Date Type Department Care Team (Latest Contact Info) Description 01/12/2023 10:28 AM CDT - 01/12/2023 11:25 AM CDT Hospital Encounter Department of Radiation Oncology in [place], [place] [address] [place] [phone] Cami Lal M.D. [address] [place] [address] Discharge Disposition: Home or Self Care Social [...] 1 tablet by mouth. 0 06/24/2022 omega 9-enc-kah-fish oil 1,200 (144-216) mg capsule Take 1 [...]
--- OUTSIDE RECORDS SUMMARY | 2023-06-22 10:45 | XMS_ITS | Referral Summary ---
Author Name Unknown Organization [facility] Address [address] [place] [address] Care Team Providers Care Mill Supervisor Name Role Phone Unavailable Primary Care Provider Unavailabl e Source Comments Patient records contain information from all sites at [facility]. For routine questions regarding patient records, call [phone] during business hours, M-F 8:00 AM - 5:00 PM Central Time. Record requests for emergency care only can be directed to [phone] at any time.[facility] Allergies Active Allergy Reactions Criticality Noted [...] tablet by mouth. 0 06/24/2022 Active omega 0-mkx-atg-fish oil 1,200 (144-216) mg capsule Take 1 [...] cM0, G2, ER+, NV+, HER2+) - Unsigned Social History Tobacco Use [...]
--- OUTSIDE RECORDS SUMMARY | 2023-06-22 10:45 | XMS_ITS ---
Author Name Unknown Organization [facility] Address [address] [place] [address] Care Team Providers Care Home Economics Extension Worker Name Role Phone Unavailable Primary Care Provider Unavailabl e Active Problems Problem Noted Date Diagnosed Date Malignant Neoplasm Of Breast Lower Outer Quadrant Female Right 07/29/2022 Cancer Staging:Clinical stage from 06/11/2022:Stage IB(cT2, cN1(f), cM0, G3, ER+, OR+, HER2+) - Unsigned Pathologic stage from 11/18/2022:No Stage Recommended(ypT1c, pN0(sn), cM0, G2, ER+, OR+, HER2+) - Unsigned Current Oncology Plans No current plan information found. Past Plans No past plan information found. Radiation Treatments * Plan Last Treated On Elapsed Days Fractions Treated Prescribed Fraction Dose Prescribed Total Dose [id number] 01/20/2023 24 4 of 4 250 cGy 1,000 cG y [id number] 01/14/2023 18 15 of 15 267 cGy 4,005 cGy Reference Point Last Treated On Elapsed Days Session Dose Total Dose [id number] 01/20/2023 24 250 cGy 5,005 cGy
--- OUTSIDE RECORDS SUMMARY | 2023-06-22 10:45 | XMS_ITS | Encounter Summary ---
Author Name Unknown Organization [facility] Address [address] [place] [address] Care Team Providers Care Box Worker Name Role Phone Unavailable Primary Care Provider Unavailabl e Encounter Details Date Type Department Care Team (Latest Contact Info) Description 01/14/2023 9:14 AM CDT - 01/14/2023 11:59 PM CDT Hospital Encounter Department of Radiation Oncology in [place], [place] [address] [place] [address] Cami Lal M.D. [address] [place] [address] Discharge Disposition: Home or Self Care Social [...] 1 tablet by mouth. 0 06/24/2022 omega 9-own-bow-fish oil 1,200 (144-216) mg capsule Take 1 [...]
--- OUTSIDE RECORDS SUMMARY | 2023-06-22 10:46 | XMS_ITS | Encounter Summary ---
Author Name Unknown Organization [facility] Address [address] [place] [address] Care Team Providers Care Vulcanizing Press Operator Name Role Phone Unavailable Primary Care Provider Unavailabl e Encounter Details Date Type Department Care Team (Latest Contact Info) Description 01/10/2023 10:11 AM CDT - 01/10/2023 11:59 PM CDT Hospital Encounter Department of Radiation Oncology in [place], [place] [address] [place] [phone] Cami Lal M.D. [address] [place] [address] Discharge Disposition: Home or Self Care Social [...] 1 tablet by mouth. 0 06/24/2022 omega 2-wzo-xsq-fish oil 1,200 (144-216) mg capsule Take 1 [...]
--- OUTSIDE RECORDS SUMMARY | 2023-06-22 10:46 | XMS_ITS | Encounter Summary ---
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 [address] [place] [address] [facility] Region Referral ID Status Reason Start Date Expiration Date V isits Requested Visits Authorized [id number] Authorized 12/14/2022 12/14/2023 10 10 Encounter Details Date Type Department Care Team (Latest Contact Info) Description 12/28/2022 9:44 AM CDT - 12/28/2022 3:16 PM CDT Hospital Encounter Department of Radiation Oncology in [place], [place] [address] [place] [address] Cami Lal M.D. [address] [place] [address] Malignant Neoplasm Of Breast Lower Outer Quadrant [...] 1 tablet by mouth. 0 06/24/2022 omega 8-rbx-msx-fish oil 1,200 (144-216) mg capsule Take 1 [...] noted below.I reviewed the documentation of Ms. Sandy Paige RN and agree with the findings and plan. The patient appears well on exam. We will continue with radiation as planned and monitor weekly. She had forgotten to olive picker her Mometasone cream at the pharmacy. [...] (cGy) First Treatment Last Treatment Elapsed Days [id number] [phone] 12/27/2022 12/28/2022 1 Course Summary 12/27/2022 12/28/2022 [...] Stage IB (cT2, cN1, cM0, G3, ER+, [place]+, HER2+) invasive ductal carcinoma of the right breast s/p neoadjuvant chemotherapy and right breast lumpectomy and right lymph node excision, ypT1c, pN0, cM0,G2, ER+, [place]+, HER2+ #2 High tangents radiotherapy to the [...]
--- OUTSIDE RECORDS SUMMARY | 2023-06-22 10:46 | XMS_ITS | Encounter Summary ---
Author Name Unknown Organization [facility] Address [address] [place] [address] Care Team Providers Care Ribbon Winder Name Role Phone Unavailable Primary Care Provider Unavailabl e Encounter Details Date Type Department Care Team (Latest Contact Info) Description 12/27/2022 11:03 AM CDT - 12/27/2022 11:59 PM CDT Hospital Encounter Department of Radiation Oncology in [place], [place] [address] [place] [address] Cami Lal M.D. [address] [place] [address] Discharge Disposition: Home or Self Care Social [...] 1 tablet by mouth. 0 06/24/2022 omega 2-eng-mph-fish oil 1,200 (144-216) mg capsule Take 1 [...]
--- OUTSIDE RECORDS SUMMARY | 2023-06-22 10:46 | XMS_ITS | Encounter Summary ---
Author Name Unknown Organization [facility] Address [address] [place] [address] Care Team Providers Care Shape Brick Molder Name Role Phone Unavailable Primary Care Provider Unavailabl e Encounter Details Date Type Department Care Team (Latest Contact Info) Description 12/29/2022 10:24 AM CDT - 12/29/2022 11:59 PM CDT Hospital Encounter Department of Radiation Oncology in [place], [place] [address] [place] [address] Cami Lal M.D. [address] [place] [address] Discharge Disposition: Home or Self Care Social [...] 1 tablet by mouth. 0 06/24/2022 omega 1-mlk-iml-fish oil 1,200 (144-216) mg capsule Take 1 [...]
--- OUTSIDE RECORDS SUMMARY | 2023-06-22 10:46 | XMS_ITS | Encounter Summary ---
Author Name Unknown Organization [facility] Address [address] [place] [address] Care Team Providers Care Surgical Supplies Sterilizer Name Role Phone Unavailable Primary Care Provider Unavailabl e Encounter Details Date Type Department Care Team (Latest Contact Info) Description 01/06/2023 2:14 PM CDT - 01/06/2023 11:59 PM CDT Hospital Encounter Department of Radiation Oncology in [place], [place] [address] [place] [address] Cami Lal M.D. [address] [place] [address] Discharge Disposition: Home or Self Care Social [...] 1 tablet by mouth. 0 06/24/2022 omega 3-xyp-ouo-fish oil 1,200 (144-216) mg capsule Take 1 [...]
--- OUTSIDE RECORDS SUMMARY | 2023-06-22 10:46 | XMS_ITS | Encounter Summary ---
Author Name Unknown Organization [facility] Address [address] [place] [address] Care Team Providers Care Accounting Manager Assistant Controller Name Role Phone Unavailable Primary Care Provider Unavailabl e Encounter Details Date Type Department Care Team (Latest Contact Info) Description 01/05/2023 7:43 AM CDT - 01/05/2023 11:59 PM CDT Hospital Encounter Department of Radiation Oncology in [place], [place] [address] [place] [address] Cami Lal M.D. [address] [place] [address] Discharge Disposition: Home or Self Care Social [...] 1 tablet by mouth. 0 06/24/2022 omega 8-ldc-tvw-fish oil 1,200 (144-216) mg capsule Take 1 [...]
--- OUTSIDE RECORDS SUMMARY | 2023-06-22 10:46 | XMS_ITS | Encounter Summary ---
Author Name Unknown Organization [facility] Address [address] [place] [address] Care Team Providers Care Facility Mechanic Name Role Phone Unavailable Primary Care Provider Unavailabl e Encounter Details Date Type Department Care Team (Latest Contact Info) Description 12/30/2022 10:27 AM CDT - 12/30/2022 11:59 PM CDT Hospital Encounter Department of Radiation Oncology in [place], [place] [address] [place] [address] Cami Lal M.D. [address] [place] [address] Discharge Disposition: Home or Self Care Social [...] 1 tablet by mouth. 0 06/24/2022 omega 7-gak-fvy-fish oil 1,200 (144-216) mg capsule Take 1 [...]
--- OUTSIDE RECORDS SUMMARY | 2023-06-22 10:46 | XMS_ITS | Encounter Summary ---
Author Name Unknown Organization [facility] Address [address] [place] [address] Care Team Providers Care Call Manager Name Role Phone Unavailable Primary Care Provider Unavailabl e Encounter Details Date Type Department Care Team (Latest Contact Info) Description 01/03/2023 9:58 AM CDT - 01/03/2023 11:59 PM CDT Hospital Encounter Department of Radiation Oncology in [place], [place] [address] [place] [address] Cami Lal M.D. [address] [place] [address] Discharge Disposition: Home or Self Care Social [...] 1 tablet by mouth. 0 06/24/2022 omega 7-ezn-xnj-fish oil 1,200 (144-216) mg capsule Take 1 [...]
--- OUTSIDE RECORDS SUMMARY | 2023-06-22 10:46 | XMS_ITS | Encounter Summary ---
Author Name Unknown Organization [facility] Address [address] [place] [address] Care Team Providers Care Tint Layer Name Role Phone Unavailable Primary Care Provider Unavailabl e Encounter Details Date Type Department Care Team (Latest Contact Info) Description 01/04/2023 10:13 AM CDT - 01/04/2023 11:59 PM CDT Hospital Encounter Department of Radiation Oncology in [place], [place] [address] [place] [phone] Cami Lal M.D. [address] [place] [address] Discharge Disposition: Home or Self Care Social [...] 1 tablet by mouth. 0 06/24/2022 omega 0-vwd-pnn-fish oil 1,200 (144-216) mg capsule Take 1 [...]
--- OUTSIDE RECORDS SUMMARY | 2023-06-22 10:46 | XMS_ITS | Encounter Summary ---
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 [address] [place] [address] [facility] Region Referral ID Status Reason Start Date Expiration Date V isits Requested Visits Authorized [id number] Authorized 12/14/2022 12/14/2023 10 10 Encounter Details Date Type Department Care Team (Latest Contact Info) Description 01/06/2023 2:14 PM CDT - 01/06/2023 4:20 PM CDT Hospital Encounter Department of Radiation Oncology in [place], [place] [address] [place] [phone] Cami Lal M.D. [address] [place] [address] Malignant Neoplasm Of Breast Lower Outer Quadrant [...] 1 tablet by mouth. 0 06/24/2022 omega 9-zcs-bao-fish oil 1,200 (144-216) mg capsule Take 1 [...] (cGy) First Treatment Last Treatment Elapsed Days [id number] 12/27/2022 01/06/2023 10 Course Summary 12/27/2022 [...] Stage IB (cT2, cN1, cM0, G3, ER+, SD+, HER2+) invasive ductal carcinoma of the right breast s/p neoadjuvant chemotherapy and right breast lumpectomy and right lymph node excision, ypT1c, pN0, cM0,G2, ER+, SD+, HER2+ #2 High tangents radiotherapy to the [...]
--- OUTSIDE RECORDS SUMMARY | 2023-06-22 10:46 | XMS_ITS | Encounter Summary ---
Author Name Unknown Organization [facility] Address [address] [place] [address] Care Team Providers Care Job Putter Up And Ticket Preparer Name Role Phone Unavailable Primary Care Provider Unavailabl e Reason for Referral * Specialty Diagnoses / Procedures Referred By Donell manning Referred To Contact Randi Larson APRN, C.N.P., D.N.P. [address] [place] [phone] [facility] Referral ID Status Reason Start Date Expiration Date Visits Re quested Visits Authorized Encounter Details Date Type Department Care Team (Latest Contact Info) Description 12/30/2022 10:27 AM CDT - 12/30/2022 12:50 PM CDT Hospital Encounter Department of Radiation Oncology in [place], [place] [address] [place] [address] Cami Lal M.D. [address] [place] [phone] Sandy Paige RThais [address] [place] [phone] Malignant Neoplasm Of Breast Lower Outer [...] 1 tablet by mouth. 0 06/24/2022 omega 6-fjc-knw-fish oil 1,200 (144-216) mg capsule Take 1 [...]
--- OUTSIDE RECORDS SUMMARY | 2023-06-22 10:46 | XMS_ITS | Encounter Summary ---
Author Name Unknown Organization [facility] Address [address] [place] [address] Care Team Providers Care Registered Vascular Technologist (Rvt) Name Role Phone Unavailable Primary Care Provider Unavailabl e Encounter Details Date Type Department Care Team (Latest Contact Info) Description 01/11/2023 8:51 AM CDT - 01/11/2023 11:59 PM CDT Hospital Encounter Department of Radiation Oncology in [place], [place] [address] [place] [address] Cami Lal M.D. [address] [place] [address] Discharge Disposition: Home or Self Care Social [...] 1 tablet by mouth. 0 06/24/2022 omega 8-wov-ibi-fish oil 1,200 (144-216) mg capsule Take 1 [...]
--- OUTSIDE RECORDS SUMMARY | 2023-06-22 10:46 | XMS_ITS | Encounter Summary ---
Author Name Unknown Organization [facility] Address [address] [place] [address] Care Team Providers Care Microsoft Exchange Architect Name Role Phone Unavailable Primary Care Provider Unavailabl e Encounter Details Date Type Department Care Team (Latest Contact Info) Description 12/28/2022 9:43 AM CDT Hospital Encounter Department of Radiation Oncology in [place], [place] [address] [place] [phone] Cami Lal M.D. [address] [place] [address] Discharge Disposition: Home or Self Care Social [...] 1 tablet by mouth. 0 06/24/2022 omega 3-ihm-zke-fish oil 1,200 (144-216) mg capsule Take 1 [...]
--- OUTSIDE RECORDS SUMMARY | 2023-06-22 10:46 | XMS_ITS | Encounter Summary ---
Author Name Unknown Organization [facility] Address [address] [place] [address] Care Team Providers Care Cat Operator Name Role Phone Unavailable Primary Care Provider Unavailabl e Encounter Details Date Type Department Care Team (Latest Contact Info) Description 01/07/2023 12:42 PM CDT - 01/07/2023 11:59 PM CDT Hospital Encounter Department of Radiation Oncology in [place], [place] [address] [place] [phone] Cami Lal M.D. [address] [place] [address] Discharge Disposition: Home or Self Care Social [...] 1 tablet by mouth. 0 06/24/2022 omega 4-mfj-xeu-fish oil 1,200 (144-216) mg capsule Take 1 [...]
--- OUTSIDE RECORDS SUMMARY | 2023-06-22 10:46 | XMS_ITS | Encounter Summary ---
Author Name Unknown Organization [facility] Address [address] [place] [address] Care Team Providers Care Stringed Instrument Assembler Name Role Phone Unavailable Primary Care Provider Unavailabl e Encounter Details Date Type Department Care Team (Latest Contact Info) Description 12/31/2022 8:30 AM CDT - 12/31/2022 11:59 PM CDT Hospital Encounter Department of Radiation Oncology in [place], [place] [address] [place] [address] Cami Lal M.D. [address] [place] [address] Discharge Disposition: Home or Self Care Social [...] 1 tablet by mouth. 0 06/24/2022 omega 9-aez-myt-fish oil 1,200 (144-216) mg capsule Take 1 [...]
--- OUTSIDE RECORDS SUMMARY | 2023-06-22 10:47 | XMS_ITS | Encounter Summary ---
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 [address] [place] [address] [facility] Region Referral ID Status Reason Start Date Expiration Date Visits Re quested Visits Authorized [id number] Closed 12/14/2022 12/14/2023 1 1 Encounter Details Date Type Department Care Team (Latest Contact Info) Description 12/20/2022 10:00 AM CDT - 12/20/2022 11:26 AM CDT Hospital Encounter Department of Radiation Oncology in [address] [place] [address] Cami Lal M.D. [address] [place] [address] Malignant Neoplasm Of Breast Lower Outer Quadrant [...] 1 tablet by mouth. 0 06/24/2022 omega 1-vct-hzl-fish oil 1,200 (144-216) mg capsule Take 1 [...] planning. CT images were transferred to the [facility] treatment planning system, after a reference isocenter was determined and marked. Segmentation and treatment planning will take place prior to treatment delivery. Patient set up and imaging was appropriate and completed without incident. Associate Professor Of Art History use:No documented in this encounter Plan of [...]
--- OUTSIDE RECORDS SUMMARY | 2023-06-22 10:47 | XMS_ITS | Encounter Summary ---
Author Name Unknown Organization [facility] Address [address] [place] [address] Care Team Providers Care Demand Planning Analyst Name Role Phone Unavailable Primary Care Provider Unavailabl e Reason for Referral * Outpatient (Routine) - Authorized Specialty Diagnoses / Procedures Referred By Contac t Referred To Contact Radiation Oncology Cami Lal M.D. [address] [place] [address] [facility] Region Referral ID Status Reason Start Date Expiration Date V isits Requested Visits Authorized [id number] Authorized 12/14/2022 12/13/2025 10 10 * Specialty Diagnoses / Procedures Referred By Contac t Referred To Contact Randi Larson APRN, C.N.PDonato, D.N.P. [address] [place] [address] [facility] Region Referral ID Status Reason Start Date Expiration Date Visits Re quested Visits Authorized * Specialty Diagnoses / Procedures Referred By Contac t Referred To Contact Randi Larson APRN, C.N.P., D.N.P. 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 [address] [place] [address] [facility] Region Referral ID Status Reason Start Date Expiration Date V isits Requested Visits Authorized [id number] Authorized 12/14/2022 12/14/2023 10 10 * Radiation Therapy (Routine) - Authorized Specialty Diagnoses / Procedures Referred By Marquiseac t Referred To Contact Diagnoses Malignant Neoplasm Of Breast Lower Outer Quadrant Female Right (HCC) Procedures Prior Auth Rad Tx Cami Lal M.D. [address] [place] [address] [facility] Referral ID Status Reason Start Date Expiration Date V isits Requested Visits Authorized [id number] Authorized 12/14/2022 12/14/2023 1 1 * Radiation Therapy (Routine) - Closed Specialty Diagnoses / Procedures Referred By Marquiseac t Referred To Contact Diagnoses Malignant Neoplasm Of Breast Lower Outer Quadrant Female Right (HCC) Procedures Initial Rad Onc Treatment Planning CT Simulation Cami Lal M.D. [address] [place] [address] [facility] Region Referral ID Status Reason Start Date Expiration Date Visits Re quested Visits Authorized [id number] Closed 12/14/2022 12/14/2023 1 1 Encounter Details Date Type Department Care Team (Late st Contact Info) Description 12/14/2022 Orders Only Department of Radiation Oncology in [place], [place] [address] [place] [phone] Randi Larson APRN, C.N.P., D.N.P. 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
--- OUTSIDE RECORDS SUMMARY | 2023-06-22 10:47 | XMS_ITS | Clinical Summary ---
Author Name Unknown Organization [facility] Address [place], [place] [address] Care Team Providers Care Gear Changer Name Role Phone September, Kelly Darling RN, BSN Unavailable [phone] Nabila Pandya MD Primary Care Provider [phone] Allergies No known active allergies Medications Medication [...] Description 03/25/2023 9:00 AM CDT Orders Only [facility] [address] [place] [address] 2 scans: (2-Ord) ECHO TTE COMPLETE WO CONTRAST ([id number]) 03/25/2023 Travel from Last 3 Months Immunizations Name Administration Dates Next Due Influenza Virus, Unspecified 05/06/2009,02/22/19 96 Tdap 07/11/2012 Family History Medical History Relation Name Comments Heart Disease Father DC Hypertension Mother healthy Cancer-colon Paternal Grandfather Relation [...] CDT ECHOCARDIOGRAM LYNNETTE Israel TELMACLAUDIAROBE ?Accession#: ?? [id number] : ?1955 67 years Study Date: ?? 03/25/2023 9:11:39 AM Gender: F ? BP: ? 127/76 mmHg Height: 168.00 cm ? BSA: ?1.87 m? ? ? Weight: 77.00 kg ?Tech: ? MTS ?Referring MD: ANTHONY RODRIGUES Site: ? [facility] Reading Location: MOBILE OP Patient Location: Outpatient. [...] Global longitudinal strain analysis was performed using InnSania software. Current global longitudinal strain is normal [...] by an IAC accredited facility. CC: [facility] ([facility]) [facility]. ??Final ?? Procedure Note Rodrigo Ramirez MD - 03/25/2023 ECHOCARDIOGRAM LYNNETTE GABRIEL : 1955 67 years Study Date: 03/25/2023 9:11:39 AM Gender: F BP: 127/76 mmHg Height: 168.00 cm BSA: 1.87 m? ? ? Weight: 77.00 kg Tech: [facility] Referring MD: ANTHONY RODRIGUES Site: [facility] Reading Location: MOBILE OP Patient [...] sized. Global longitudinal strain analysis was performedusing InnSania software. Current global longitudinal strain is normal [...] by an IAC accredited facility. CC: [facility] ([facility]) [facility]. Final Anthony Rodrigues MD ECHO ORD from Last 3 Months Care Teams Gear Changer Relationship Specialty Start Date End Date Nabila Pandya MD [address] [place] [address] PCP - General Emergency Medicine 07/01/22September, Kelly Darling RN, BSN [address] [address] Educational Consultant Oncology 10/10/15
--- OUTSIDE RECORDS SUMMARY | 2023-06-22 10:47 | XMS_ITS | Encounter Summary ---
Author Name Unknown Organization [facility] Address [address] [place] [address] Care Team Providers Care Booking Prizer Name Role Phone Unavailable Primary Care Provider Unavailabl e Reason for Visit * Reason Comments Med Refill Encounter Details Date Type Department Care Team (Late st Contact Info) Description 08/27/2022 Refill Department of Oncology in [address] [address] Elaine Jean M.D. [address] [place] [address] Med Refill Social History Tobacco Use [...] HOURS NEEDED FOR NAUSEA Pharmacy (include location): [facility]/pharmacy #[id number] - [place], [place] - [address] [address] documented in this encounter Plan of Treatment Not on file documented as of this encounter Visit Diagnoses Diagnosis Malignant Neoplasm Of Unspecified Site Of Laterality Unknown Female Breast (HCC) documented in this encounter
--- OUTSIDE RECORDS SUMMARY | 2023-06-22 10:47 | XMS_ITS | Continuity of Care Document ---
Author Name Unknown Organization [facility] Address [address] [address] [place] [address] Phone Care Team Providers Care Traffic Coordinator Name Role Phone Unavailable Unavailable Unavailable Allergies, Adverse Reactions, Alerts Substance Reaction Status Criticality No Known Allergies Active No Inform ation Medications Medication Instructions Dosage Effective Dates (start - stop) Status Comments Fish Oil Concentrate 1,000 mg capsule take 1 Capsule by Oral route every day 1 Capsule - Active Claritin-D 24 Hour 10 mg-240 mg tablet,extended release take 1 tablet by oral route every day as needed 1 tablet - Active ranitidine 150 mg capsule take 1 capsule by oral route 2 times every day - Active Vitamin D3 1,000 unit tablet take 1 Tablet by Oral route every day 1 Tablet - Active Zantac 150 mg tablet take 1 tablet by or al route every day at bedtime - Active Procedures Procedure Date Offic Cons New/estab Mod Routine Serum Collection Hepatic Function Panel Prothrombin Time Advance Directives Directive Yes / No Effective Date File Name No Information Encounters Encounter Description Practice Location Reason(s) For Visit Diagnoses Date Provider Providers Copied on Encounter [facility] [address] [address], [place], [id number], [place] tel:[phone] [facility] No Information [address] No Information [facility] [address] [address], [place], [id number], [place] tel:[phone] [facility] Abnormal liver function tests No Information Referring [place]: [place], [address] [place], [address]. tel:[phone] Offic Cons New/estab Mod [facility], [address] [address], [place], [id number], [place] tel:[phone] [facility] GI Symptoms or Concerns (chief complaint) Abnormal CAT scanAbnormal liver function testsDietary counseling and surveillanceEle vated blood-pressure reading, w/o diagnosis of htn No Information Referring Provider: [place], [address] [place], [address]. tel:[phone] Family History Family Member Type Diagnosis Age At Onset Son Problem (finding) Alive and well Brother Problem (finding) Alive and well Sister Problem (finding) Alive and well Mother Problem (finding) Sister Problem (finding) malignant neop lasm of breast in first degree relative Daughter Problem (finding) Alive and well Father Problem (finding) Payers Payer name Insurance type Covered libertarian ID Authoriza tion(s) [facility] [id number] Social History Type Description Quantity Date Captured Comments Alcohol Use Details Unknown Caffeine Use Details Unknown Tobacco Use Status No Information Smoking Status No Information Sex Female Chief Complaint And Reason For Visit No Information Reason For Referral Reason For Referral No Information Plan Of Treatment Date Type Action Status Goal Lifestyle education regardin g diet completed Referral Ordered: Hepatic Function Panel Appointment date/timeframe: 10/21/2015 ordered Referral Ordered: MRI Liver WITH Contrast Appointment date/timeframe: 10/03/2015 ordered History Of Present Illness Encounter Date Complaint History Of Prese nt Illness GI Symptoms or Concerns This pat ient comes to the office for evaluation of abnormal imaging of the liver and elevated liver tests. She is accompanied by her .In the beginning of 2015, the patient was experiencing severe heartburn. She had symptoms similar to this in the past. She took Prilosec for several weeks and had some relief, but had continued symptoms. She has stress at home with the adult child moving back home that she thought was a contributing factor. The patient then had episodes of acute pain in the right upper quadrant. She might have it once a week and then it would relent and then have it monthly. It tended to occur after dinner. The pain could be she sharp, stabbing and may radiate to her mid back. Occasionally, she would have nausea. On some occasions, she would vomit and the pain would resolve. More recently, the pain has had more mild pain in her right side that she refers to as stitch. If she is busy, she tends not to notice it. If she is sitting and watching TV, sh Functional Status Date Functional Assessmen t No Information Instructions Date Instruction Additional Infor sia Lifestyle education regarding di et Related to Dietary counseling and surveillance MRI Liver WITH Contrast Assessments Type Assessment Date No Information Patient Care Teams Name Effective Dates (start - stop) Status Members No Information
--- OUTSIDE RECORDS SUMMARY | 2023-06-22 10:47 | XMS_ITS | Encounter Summary ---
Author Name Unknown Organization [facility] Address [address] [place] [address] Care Team Providers Care Physicist Acoustics Name Role Phone Unavailable Primary Care Provider Unavailabl e Reason for Visit * Appointment Request (Routine) - Closed Specialty Diagnoses / Procedures Referred By Donell t Referred To Contact Radiation Oncology Chen Zambrano M.D. [address] [place] [address] Referral ID Status Reason Start Date Expiration Date Visits Re quested Visits Authorized [id number] Closed 12/07/2022 12/07/2023 1 1 Encounter Details Date Type Department Care Team (Latest Contact Info) Description 12/20/2022 8:52 AM CDT - 12/20/2022 9:59 AM CDT Hospital Encounter Department of Radiation Oncology in [place], [place] [address] [place] [phone] Cami Lal M.D. [address] [place] [address] Malignant Neoplasm Of Breast Lower Outer Quadrant [...] 1 tablet by mouth. 0 06/24/2022 omega 3-isr-wfb-fish oil 1,200 (144-216) mg capsule Take 1 [...] under the care of Dr. Zambrano at [facility]. 11/18/2022 Surgery and Procedures Right breast lumpectomy and right sentinel lymph node biopsy performed by Dr. Brian Lowery. Final Diagnosis A) RIGHT BREAST, WIRE-LOCALIZED LUMPECTOMY STATUS POST NEOADJUVANT CHEMOTHERAPY: 1. Residual invasive ductal carcinoma, [place] grade II of III (see comment) a. [...] Breast Ancillary Testing: Performed on prior case ([id number]) a. Hormone Receptors: Estrogen receptor: Positive (99%, [...] Examined (sentinel and non-sentinel): 8 Number of [place] Nodes Examined: 7 PATHOLOGIC STAGE CLASSIFICATION (pTNM, AJCC 8th Edition) TNM Descriptors: y (post-treatment) pT Category: pT1c pN Category: pN0 12/27/2022 - Radiation Therapy Radiation Therapy Treatment Details (Noted on 12/14/2022) Site: Right Breast Technique: 3D RECEPTIONIST DOCTOR'S OFFICE Goal: Curative Planned Treatment Start Date: 12/27/2022 [...] Stage IB (cT2, cN1, cM0, G3, ER+, MA+, HER2+) invasive ductal carcinoma of the right breast s/p neoadjuvant chemotherapy and right breast lumpectomy and right lymph node excision, ypT1c, pN0, cM0,G2, ER+, MA+, HER2+ I had a discussion with the [...] Nation P.A.-C., M.S. 12/20/2022 10:41 AM CDT [facility] [address] [place] [address] Associated attestation - Cami Lal M.D. - [...] female who received neoadjuvant chemotherapy for her ER/MA/HER2 positive right sided breast cancer (2.3cm, 3 [...] We discussed the acute as well as fci risks, including, but not limited to fatigue, [...] Stage IB (cT2, cN1, cM0, G3, ER+, MA+, HER2+) invasive ductal carcinoma of the right breast s/p neoadjuvant chemotherapy and right breast lumpectomy and right lymph node excision, ypT1c, pN0, cM0,G2, ER+, MA+, HER2+ Signed by: Cami Lal M.D. 12/20/2022 11:18 AM CDT Radiation Oncology [facility] [address] [place] [address] documented in this encounter Plan of Treatment Not on file documented as of this encounter Visit Diagnoses Diagnosis Malignant Neoplasm Of Breast Lower Outer Quadrant Female Right (HCC)- Primary documented in this encounter
== END 2023-06-22 10:35 | disposition home or self-care (01) ==
PROVIDERS: PCP Emergency Medicine; Visit Provider Emergency Medicine
DX: E89.0 Postprocedural hypothyroidism (principal); E78.2 Mixed hyperlipidemia; Z79.811 Long term (current) use of aromatase inhibitors
CPT/HCPCS: 80061; 82306; 84443

== ENCOUNTER 2023-06-24 08:46 | Outpatient (CLI) | payer MEDICARE, BC, SELFPAY ==
--- OUTSIDE RECORDS SUMMARY | 2023-06-24 08:49 | XMS_ITS | Encounter Summary ---
Author Name Unknown Organization [facility] Address [address] [place] [address] Care Team Providers Care Manager Club Name Role Phone Unavailable Primary Care Provider Unavailabl e Reason for Referral * Radiation Therapy (Routine) - Authorized Specialty Diagnoses / Procedures Referred By Contac t Referred To Contact Diagnoses Malignant Neoplasm Of Breast Lower Outer Quadrant Female Right (HCC) Procedures Management Visit Cami Lal I. [address] [place] [address] [facility] Region Referral ID Status Reason Start Date Expiration Date V isits Requested Visits Authorized [id number] Authorized 12/14/2022 12/14/2023 10 10 Reason for Visit * Radiation Therapy (Routine) - Authorized Specialty Diagnoses / Procedures Referred By Donell manning Referred To Contact Diagnoses Malignant Neoplasm Of Breast Lower Outer Quadrant Female Right (HCC) Procedures Management Visit Cami Lal I. [address] [place] [address] [facility] Region Referral ID Status Reason Start Date Expiration Date V isits Requested Visits Authorized [id number] Authorized 12/14/2022 12/14/2023 10 10 Encounter Details Date Type Department Care Team (Latest Contact Info) Description 01/18/2023 9:26 AM CDT - 01/18/2023 1:16 PM CDT Hospital Encounter Department of Radiation Oncology in [place], [place] [address] [place] [phone] Cami Lal I. [address] [place] [address] Malignant Neoplasm Of Breast Lower Outer Quadrant [...] 1 tablet by mouth. 0 06/24/2022 omega 3-ffy-vzm-fish oil 1,200 (144-216) mg capsule Take 1 [...] (cGy) First Treatment Last Treatment Elapsed Days [id number] 267 4005 4005 12/27/2022 01/14/2023 18 [id number] / 001 [id number] 1739 01/17/2023 01/18/2023 1 Treatment Site Summary 4505 5005 12/27/2022 01/18/2023 22 Course Summary 12/27/2022 01/18/2023 The patient was [...] Stage IB (cT2, cN1, cM0, G3, ER+, IL+, HER2+) invasive ductal carcinoma of the right breast s/p neoadjuvant chemotherapy and right breast lumpectomy and right lymph node excision, ypT1c, pN0, cM0,G2, ER+, IL+, HER2+ #2 High tangents radiotherapy to the [...] have ongoing follow with Dr. Zambrano at [facility]. She is scheduled for her next [...]
--- OUTSIDE RECORDS SUMMARY | 2023-06-24 08:49 | XMS_ITS | Referral Summary ---
Author Name Unknown Organization [facility] Address [address] [place] [address] Care Team Providers Care Brush Maker Machine Name Role Phone Unavailable Primary Care Provider Unavailabl e Source Comments Patient records contain information from all sites at [facility]. For routine questions regarding patient records, call [phone] during business hours, M-F 8:00 AM - 5:00 PM Central Time. Record requests for emergency care only can be directed to [phone] at any time.[facility] Allergies Active Allergy Reactions Criticality Noted Date [...] tablet by mouth. 0 06/24/2022 Active omega 8-rnq-yes-fish oil 1,200 (144-216) mg capsule Take 1 [...] from 06/11/2022:Stage IB(cT2, cN1(f), cM0, G3, ER+, ID+, HER2+) - Unsigned Pathologic stage from 11/18/2022:No Stage Recommended(ypT1c, pN0(sn), cM0, G2, ER+, ID+, HER2+) - Unsigned Social History Tobacco Use [...]
--- OUTSIDE RECORDS SUMMARY | 2023-06-24 08:49 | XMS_ITS ---
Author Name Unknown Organization [facility] Address [address] [place] [address] Care Team Providers Care Derrick Boat Captain Name Role Phone Unavailable Unavailable Unavailable Surgery Details Not on file Complications Check Surgery Details section. Procedure Estimated Blood Loss Check Surgery Details section. Procedure Findings Check Surgery Details section. Procedure Specimens Taken Check Surgery Details section.
--- OUTSIDE RECORDS SUMMARY | 2023-06-24 08:49 | XMS_ITS ---
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 Past Plans No past plan information found. Radiation Treatments * Plan Last Treated On Elapsed Days Fractions Treated Prescribed Fraction Dose Prescribed Total Dose [id number] 01/20/2023 24 4 of 4 250 cGy 1,000 cG y [id number] 01/14/2023 18 15 of 15 267 cGy 4,005 cGy Reference Point Last Treated On Elapsed Days Session Dose Total Dose [id number] 01/20/2023 24 250 cGy 5,005 cGy
--- OUTSIDE RECORDS SUMMARY | 2023-06-24 08:49 | XMS_ITS | Encounter Summary ---
Author Name Unknown Organization [facility] Address [address] [place] [address] Care Team Providers Care Apprentice Painter Brush Name Role Phone Unavailable Primary Care Provider Unavailabl e Encounter Details Date Type Department Care Team (Latest Contact Info) Description 01/20/2023 9:29 AM CDT - 01/20/2023 11:59 PM CDT Hospital Encounter Department of Radiation Oncology in [place], [place] [address] [place] [phone] Cami Lal I. [address] [place] [address] Discharge Disposition: Home or Self Care Social [...] 1 tablet by mouth. 0 06/24/2022 omega 5-npo-npl-fish oil 1,200 (144-216) mg capsule Take 1 [...]
--- OUTSIDE RECORDS SUMMARY | 2023-06-24 08:49 | XMS_ITS | Encounter Summary ---
Author Name Unknown Organization [facility] Address [address] [place] [address] Care Team Providers Care Manager Procurement Name Role Phone Unavailable Primary Care Provider Unavailabl e Encounter Details Date Type Department Care Team (Latest Contact Info) Description 01/19/2023 9:28 AM CDT - 01/19/2023 11:59 PM CDT Hospital Encounter Department of Radiation Oncology in [place], [place] [address] [place] [phone] Cami Lal I. [address] [place] [address] Discharge Disposition: Home or Self Care Social [...] 1 tablet by mouth. 0 06/24/2022 omega 5-rio-gxm-fish oil 1,200 (144-216) mg capsule Take 1 [...]
--- OUTSIDE RECORDS SUMMARY | 2023-06-24 08:49 | XMS_ITS | Encounter Summary ---
Author Name Unknown Organization [facility] Address [address] [place] [address] Care Team Providers Care Body Line Finisher Name Role Phone Unavailable Primary Care Provider Unavailabl e Encounter Details Date Type Department Care Team (Latest Contact Info) Description 01/18/2023 9:26 AM CDT - 01/18/2023 11:59 PM CDT Hospital Encounter Department of Radiation Oncology in [place], [place] [address] [place] [phone] Cami Lal I. [address] [place] [address] Discharge Disposition: Home or Self Care Social [...] 1 tablet by mouth. 0 06/24/2022 omega 6-ysz-rpw-fish oil 1,200 (144-216) mg capsule Take 1 [...]
--- OUTSIDE RECORDS SUMMARY | 2023-06-24 08:49 | XMS_ITS | Encounter Summary ---
Author Name Unknown Organization [facility] Address [address] [place] [address] Care Team Providers Care Disintegrator Operator Name Role Phone Unavailable Primary Care Provider Unavailabl e Encounter Details Date Type Department Care Team (Late st Contact Info) Description 01/20/2023 Documentation Department of Radiation Oncology in [place], [place] [address] [place] [phone] Cami Lal I. [address] [place] [address] Social History Tobacco Use Types Packs/Day Years [...] * Radiation Completion Notes - Sandy Paige RDonatoNDonato - 01/20/2023 11:59 PM CDT DIAGNOSIS: 1. 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
--- OUTSIDE RECORDS SUMMARY | 2023-06-24 08:49 | XMS_ITS | Clinical Summary ---
Author Name Unknown Organization [facility] Address [address] [place] [address] Care Team Providers Care Residential Counselor Name Role Phone Unavailable Primary Care Provider Unavailabl e Source Comments Patient records contain information from all sites at [facility]. For routine questions regarding patient records, call [phone] during business hours, M-F 8:00 AM - 5:00 PM Central Time. Record requests for emergency care only can be directed to [phone] at any time.[facility] Allergies Active Allergy Reactions Criticality Noted Date [...] tablet by mouth. 0 06/24/2022 Active omega 4-ihx-tci-fish oil 1,200 (144-216) mg capsule Take 1 [...] from 06/11/2022:Stage IB(cT2, cN1(f), cM0, G3, ER+, DC+, HER2+) - Unsigned Pathologic stage from 11/18/2022:No Stage Recommended(ypT1c, pN0(sn), cM0, G2, ER+, DC+, HER2+) - Unsigned Family History Medical History [...]
--- OUTSIDE RECORDS SUMMARY | 2023-06-24 08:50 | XMS_ITS | Encounter Summary ---
Author Name Unknown Organization [facility] Address [address] [place] [address] Care Team Providers Care Property Underwriter Name Role Phone Unavailable Primary Care Provider Unavailabl e Encounter Details Date Type Department Care Team (Latest Contact Info) Description 01/03/2023 9:58 AM CDT - 01/03/2023 11:59 PM CDT Hospital Encounter Department of Radiation Oncology in [place], [place] [address] [place] [address] Cami Lal I. [address] [place] [address] Discharge Disposition: Home or Self Care Social [...] 1 tablet by mouth. 0 06/24/2022 omega 7-qpr-zol-fish oil 1,200 (144-216) mg capsule Take 1 [...]
--- OUTSIDE RECORDS SUMMARY | 2023-06-24 08:50 | XMS_ITS | Encounter Summary ---
Author Name Unknown Organization [facility] Address [address] [place] [address] Care Team Providers Care Vending Machine Filler Name Role Phone Unavailable Primary Care Provider Unavailabl e Encounter Details Date Type Department Care Team (Latest Contact Info) Description 12/30/2022 10:27 AM CDT - 12/30/2022 11:59 PM CDT Hospital Encounter Department of Radiation Oncology in [place], [place] [address] [place] [phone] Cami Lal I. [address] [place] [address] Discharge Disposition: Home or Self Care Social [...] 1 tablet by mouth. 0 06/24/2022 omega 9-uxs-pie-fish oil 1,200 (144-216) mg capsule Take 1 [...]
--- OUTSIDE RECORDS SUMMARY | 2023-06-24 08:50 | XMS_ITS | Encounter Summary ---
Author Name Unknown Organization [facility] Address [address] [place] [address] Care Team Providers Care Oil Field Laborer Name Role Phone Unavailable Primary Care Provider Unavailabl e Encounter Details Date Type Department Care Team (Latest Contact Info) Description 01/06/2023 2:14 PM CDT - 01/06/2023 11:59 PM CDT Hospital Encounter Department of Radiation Oncology in [place], [place] [address] [place] [phone] Cami Lal I. [address] [place] [address] Discharge Disposition: Home or Self Care Social [...] 1 tablet by mouth. 0 06/24/2022 omega 5-eri-kxv-fish oil 1,200 (144-216) mg capsule Take 1 [...]
--- OUTSIDE RECORDS SUMMARY | 2023-06-24 08:50 | XMS_ITS | Encounter Summary ---
Author Name Unknown Organization [facility] Address [address] [place] [address] Care Team Providers Care Machine Operator Assistant Name Role Phone Unavailable Primary Care Provider Unavailabl e Encounter Details Date Type Department Care Team (Latest Contact Info) Description 01/05/2023 7:43 AM CDT - 01/05/2023 11:59 PM CDT Hospital Encounter Department of Radiation Oncology in [place], [place] [address] [place] [phone] Cami Lal I. [address] [place] [address] Discharge Disposition: Home or Self Care Social [...] 1 tablet by mouth. 0 06/24/2022 omega 6-mdk-vig-fish oil 1,200 (144-216) mg capsule Take 1 [...]
--- OUTSIDE RECORDS SUMMARY | 2023-06-24 08:50 | XMS_ITS | Encounter Summary ---
Author Name Unknown Organization [facility] Address [address] [place] [address] Care Team Providers Care Diesel Truck Crane Operator Name Role Phone Unavailable Primary Care Provider Unavailabl e Encounter Details Date Type Department Care Team (Latest Contact Info) Description 01/10/2023 10:11 AM CDT - 01/10/2023 11:59 PM CDT Hospital Encounter Department of Radiation Oncology in [place], [place] [address] [place] [address] Cami Lal I. [address] [place] [address] Discharge Disposition: Home or Self Care Social [...] 1 tablet by mouth. 0 06/24/2022 omega 6-hxx-rem-fish oil 1,200 (144-216) mg capsule Take 1 [...]
--- OUTSIDE RECORDS SUMMARY | 2023-06-24 08:50 | XMS_ITS | Encounter Summary ---
Author Name Unknown Organization [facility] Address [address] [place] [address] Care Team Providers Care Training Representative Name Role Phone Unavailable Primary Care Provider Unavailabl e Reason for Referral * Specialty Diagnoses / Procedures Referred By Donell manning Referred To Contact Randi Larson APRN, C.N.P., D.N.P. [address] [place] [phone] [facility] Referral ID Status Reason Start Date Expiration Date Visits Re quested Visits Authorized Encounter Details Date Type Department Care Team (Latest Contact Info) Description 12/30/2022 10:27 AM CDT - 12/30/2022 12:50 PM CDT Hospital Encounter Department of Radiation Oncology in [place], [place] [address] [place] [phone] Cami Lal I. [address] [place] [phone] Sandy Paige RThais [address] [place] [phone] Malignant Neoplasm Of Breast Lower Outer [...] Sig Dispensed Refills Start Date End Date albuterol 90 mcg/actuation inhaler Inhale 2 puffs. 0 12/28/2021 atorvastatin calcium (ATORVASTATIN ORAL) Take 20 mg by mouth. 0 12/28/2021 B complex-vitamin (SUPER B-50) capsule Take 1 tablet by mouth. 0 cholecalciferol (VITAMIN D3) 1,250 mcg (50,000 Unit) capsule Take 125 mcg by mouth. 0 3 loratadine-pseudoephedr ine (CLARITIN-D 24-hour) 10-240 mg per [...] 1 tablet by mouth. 0 06/24/2022 omega 9-htz-fgy-fish oil 1,200 (144-216) mg capsule Take 1 capsule by mouth. 0 06/24/2022 acetaminophen (Tylenol Extra Strength) 500 mg tablet Take 500 mg by mouth. 0 06/24/2022 diphenoxylate-atropine (LomotiL) 2.5-0.025 mg per tablet Take 1 tablet by mouth. 0 07/29/2022 ondansetron (ZOFRAN) 4 mg/5 mL solution Take [...] this encounter Progress Notes * Sandy Paige RJamey. - 12/30/2022 11:00 AM CDT Patient was [...]
--- OUTSIDE RECORDS SUMMARY | 2023-06-24 08:50 | XMS_ITS | Encounter Summary ---
Author Name Unknown Organization [facility] Address [address] [place] [address] Care Team Providers Care Rotary Soil Stabilizer Name Role Phone Unavailable Primary Care Provider Unavailabl e Encounter Details Date Type Department Care Team (Latest Contact Info) Description 12/29/2022 10:24 AM CDT - 12/29/2022 11:59 PM CDT Hospital Encounter Department of Radiation Oncology in [place], [place] [address] [place] [phone] Cami Lal I. [address] [place] [address] Discharge Disposition: Home or Self Care Social [...] 1 tablet by mouth. 0 06/24/2022 omega 1-yrt-rcq-fish oil 1,200 (144-216) mg capsule Take 1 [...]
--- OUTSIDE RECORDS SUMMARY | 2023-06-24 08:50 | XMS_ITS | Encounter Summary ---
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 [address] [place] [address] [facility] Region Referral ID Status Reason Start Date Expiration Date V isits Requested Visits Authorized [id number] Authorized 12/14/2022 12/14/2023 10 10 Encounter Details Date Type Department Care Team (Latest Contact Info) Description 01/06/2023 2:14 PM CDT - 01/06/2023 4:20 PM CDT Hospital Encounter Department of Radiation Oncology in [place], [place] [address] [place] [phone] Cami Lal I. [address] [place] [address] Malignant Neoplasm Of Breast Lower Outer Quadrant [...] 1 tablet by mouth. 0 06/24/2022 omega 0-kiw-yky-fish oil 1,200 (144-216) mg capsule Take 1 [...] (cGy) First Treatment Last Treatment Elapsed Days [id number] 267 1424 4005 12/27/2022 01/06/2023 10 Course Summary 12/27/2022 [...] Stage IB (cT2, cN1, cM0, G3, ER+, MT+, HER2+) invasive ductal carcinoma of the right breast s/p neoadjuvant chemotherapy and right breast lumpectomy and right lymph node excision, ypT1c, pN0, cM0,G2, ER+, MT+, HER2+ #2 High tangents radiotherapy to the [...]
--- OUTSIDE RECORDS SUMMARY | 2023-06-24 08:50 | XMS_ITS | Encounter Summary ---
Author Name Unknown Organization [facility] Address [address] [place] [address] Care Team Providers Care Child Care Lead Teacher Name Role Phone Unavailable Primary Care Provider Unavailabl e Encounter Details Date Type Department Care Team (Latest Contact Info) Description 01/04/2023 10:13 AM CDT - 01/04/2023 11:59 PM CDT Hospital Encounter Department of Radiation Oncology in [place], [place] [address] [place] [phone] Cami Lal I. [address] [place] [address] Discharge Disposition: Home or Self Care Social [...] 1 tablet by mouth. 0 06/24/2022 omega 0-psa-ikx-fish oil 1,200 (144-216) mg capsule Take 1 [...]
--- OUTSIDE RECORDS SUMMARY | 2023-06-24 08:50 | XMS_ITS | Encounter Summary ---
Author Name Unknown Organization [facility] Address [address] [place] [address] Care Team Providers Care Chrome Plater Helper Name Role Phone Unavailable Primary Care Provider Unavailabl e Encounter Details Date Type Department Care Team (Latest Contact Info) Description 01/07/2023 12:42 PM CDT - 01/07/2023 11:59 PM CDT Hospital Encounter Department of Radiation Oncology in [place], [place] [address] [place] [address] Cami Lal I. [address] [place] [address] Discharge Disposition: Home or Self Care Social [...] 1 tablet by mouth. 0 06/24/2022 omega 8-ftd-stk-fish oil 1,200 (144-216) mg capsule Take 1 [...]
--- OUTSIDE RECORDS SUMMARY | 2023-06-24 08:50 | XMS_ITS | Encounter Summary ---
Author Name Unknown Organization [facility] Address [address] [place] [address] Care Team Providers Care Enrollment Advisor Name Role Phone Unavailable Primary Care Provider Unavailabl e Encounter Details Date Type Department Care Team (Latest Contact Info) Description 01/13/2023 9:19 AM CDT - 01/13/2023 11:59 PM CDT Hospital Encounter Department of Radiation Oncology in [place], [place] [address] [place] [phone] Cami Lal I. [address] [place] [address] Discharge Disposition: Home or Self Care Social [...] 1 tablet by mouth. 0 06/24/2022 omega 8-feu-ycw-fish oil 1,200 (144-216) mg capsule Take 1 [...]
--- OUTSIDE RECORDS SUMMARY | 2023-06-24 08:50 | XMS_ITS | Encounter Summary ---
Author Name Unknown Organization [facility] Address [address] [place] [address] Care Team Providers Care Printing Supervisor Name Role Phone Unavailable Primary Care Provider Unavailabl e Encounter Details Date Type Department Care Team (Latest Contact Info) Description 01/17/2023 9:31 AM CDT - 01/17/2023 11:59 PM CDT Hospital Encounter Department of Radiation Oncology in [place], [place] [address] [place] [phone] Cami Lal I. [address] [place] [address] Discharge Disposition: Home or Self Care Social [...] 1 tablet by mouth. 0 06/24/2022 omega 4-inl-hhm-fish oil 1,200 (144-216) mg capsule Take 1 [...]
--- OUTSIDE RECORDS SUMMARY | 2023-06-24 08:50 | XMS_ITS | Encounter Summary ---
Author Name Unknown Organization [facility] Address [address] [place] [address] Care Team Providers Care Leasing Assistant Name Role Phone Unavailable Primary Care Provider Unavailabl e Encounter Details Date Type Department Care Team (Latest Contact Info) Description 01/14/2023 9:14 AM CDT - 01/14/2023 11:59 PM CDT Hospital Encounter Department of Radiation Oncology in [place], [place] [address] [place] [phone] Cami Lal I. [address] [place] [address] Discharge Disposition: Home or Self Care Social [...] 1 tablet by mouth. 0 06/24/2022 omega 0-zaa-iyu-fish oil 1,200 (144-216) mg capsule Take 1 [...]
--- OUTSIDE RECORDS SUMMARY | 2023-06-24 08:50 | XMS_ITS | Encounter Summary ---
Author Name Unknown Organization [facility] Address [address] [place] [address] Care Team Providers Care Re Dye Hand Name Role Phone Unavailable Primary Care Provider Unavailabl e Encounter Details Date Type Department Care Team (Latest Contact Info) Description 12/31/2022 8:30 AM CDT - 12/31/2022 11:59 PM CDT Hospital Encounter Department of Radiation Oncology in [place], [place] [address] [place] [phone] Cami Lal I. [address] [place] [address] Discharge Disposition: Home or Self Care Social [...] 1 tablet by mouth. 0 06/24/2022 omega 1-amz-cfz-fish oil 1,200 (144-216) mg capsule Take 1 [...]
--- OUTSIDE RECORDS SUMMARY | 2023-06-24 08:50 | XMS_ITS | Encounter Summary ---
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 [address] [place] [address] 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 [address] [place] [address] [facility] Region Referral ID Status Reason Start Date Expiration Date V isits Requested Visits Authorized [id number] Authorized 12/14/2022 12/14/2023 10 10 Encounter Details Date Type Department Care Team (Latest Contact Info) Description 01/12/2023 11:26 AM CDT - 01/12/2023 4:21 PM CDT Hospital Encounter Department of Radiation Oncology in [place], [place] [address] [place] [phone] Cami Lal I. [address] [place] [address] Malignant Neoplasm Of Breast Lower Outer Quadrant [...] 1 tablet by mouth. 0 06/24/2022 omega 1-zpc-fmx-fish oil 1,200 (144-216) mg capsule Take 1 [...] (cGy) First Treatment Last Treatment Elapsed Days [id number] 12/27/2022 01/12/2023 16 Course Summary 12/27/2022 [...] Stage IB (cT2, cN1, cM0, G3, ER+, DE+, HER2+) invasive ductal carcinoma of the right breast s/p neoadjuvant chemotherapy and right breast lumpectomy and right lymph node excision, ypT1c, pN0, cM0,G2, ER+, DE+, HER2+ #2 High tangents radiotherapy to the [...]
--- OUTSIDE RECORDS SUMMARY | 2023-06-24 08:50 | XMS_ITS | Encounter Summary ---
Author Name Unknown Organization [facility] Address [address] [place] [address] Care Team Providers Care Federal Appellate Law Clerk Name Role Phone Unavailable Primary Care Provider Unavailabl e Encounter Details Date Type Department Care Team (Latest Contact Info) Description 01/11/2023 8:51 AM CDT - 01/11/2023 11:59 PM CDT Hospital Encounter Department of Radiation Oncology in [place], [place] [address] [place] [phone] Cami Lal I. [address] [place] [address] Discharge Disposition: Home or Self Care Social [...] 1 tablet by mouth. 0 06/24/2022 omega 5-qwu-kql-fish oil 1,200 (144-216) mg capsule Take 1 [...]
--- OUTSIDE RECORDS SUMMARY | 2023-06-24 08:50 | XMS_ITS | Encounter Summary ---
Author Name Unknown Organization [facility] Address [address] [place] [address] Care Team Providers Care Clinical Safety Specialist Name Role Phone Unavailable Primary Care Provider Unavailabl e Encounter Details Date Type Department Care Team (Latest Contact Info) Description 01/12/2023 10:28 AM CDT - 01/12/2023 11:25 AM CDT Hospital Encounter Department of Radiation Oncology in [place], [place] [address] [place] [phone] Cami Lal I. [address] [place] [address] Discharge Disposition: Home or Self Care Social [...] 1 tablet by mouth. 0 06/24/2022 omega 9-pom-mkp-fish oil 1,200 (144-216) mg capsule Take 1 [...]
--- OUTSIDE RECORDS SUMMARY | 2023-06-24 08:51 | XMS_ITS | Encounter Summary ---
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 [address] [place] [address] [facility] Region Referral ID Status Reason Start Date Expiration Date V isits Requested Visits Authorized [id number] Authorized 12/14/2022 12/14/2023 10 10 Encounter Details Date Type Department Care Team (Latest Contact Info) Description 12/28/2022 9:44 AM CDT - 12/28/2022 3:16 PM CDT Hospital Encounter Department of Radiation Oncology in [place], [place] [address] [place] [phone] Cami Lal I. [address] [place] [address] Malignant Neoplasm Of Breast Lower Outer Quadrant [...] 1 tablet by mouth. 0 06/24/2022 omega 5-nhs-arr-fish oil 1,200 (144-216) mg capsule Take 1 [...] and monitor weekly. She had forgotten to poultry picking machine tender her Mometasone cream at the pharmacy. I [...] (cGy) First Treatment Last Treatment Elapsed Days [id number] 12/27/2022 12/28/2022 1 Course Summary 12/27/2022 12/28/2022 [...] excision, ypT1c, pN0, cM0,G2, ER+, AR+, HER2+ #2 High tangents radiotherapy to the [...]
--- OUTSIDE RECORDS SUMMARY | 2023-06-24 08:51 | XMS_ITS | Encounter Summary ---
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 [address] [place] [address] [facility] Region Referral ID Status Reason Start Date Expiration Date Visits Re quested Visits Authorized [id number] Closed 12/14/2022 12/14/2023 1 1 Encounter Details Date Type Department Care Team (Latest Contact Info) Description 12/20/2022 10:00 AM CDT - 12/20/2022 11:26 AM CDT Hospital Encounter Department of Radiation Oncology in [place], [place] [address] [place] [address] Cami Lal I. [address] [place] [address] Malignant Neoplasm Of Breast Lower Outer Quadrant [...] 1 tablet by mouth. 0 06/24/2022 omega 3-qbm-faj-fish oil 1,200 (144-216) mg capsule Take 1 [...] planning. CT images were transferred to the Eclipse treatment planning system, after a reference isocenter was determined and marked. Segmentation and treatment planning will take place prior to treatment delivery. Patient set up and imaging was appropriate and completed without incident. Cloth Stock Sorter use:No documented in this encounter Plan of [...] by: Cami Lal M.D. ?? 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
--- OUTSIDE RECORDS SUMMARY | 2023-06-24 08:51 | XMS_ITS | Encounter Summary ---
Author Name Unknown Organization [facility] Address [address] [place] [address] Care Team Providers Care Vice President Fixed Income Name Role Phone Unavailable Primary Care Provider Unavailabl e Reason for Referral * Outpatient (Routine) - Authorized Specialty Diagnoses / Procedures Referred By Contac t Referred To Contact Radiation Oncology Cami Lal I. [address] [place] [address] [facility] Region Referral ID Status Reason Start Date Expiration Date V isits Requested Visits Authorized [id number] Authorized 12/14/2022 12/13/2025 10 10 * Specialty Diagnoses / Procedures Referred By Contac t Referred To Contact Randi Larson APRN, C.N.PDonato, D.N.PDonato [address] [place] [address] [facility] Region Referral ID Status Reason Start Date Expiration Date Visits Re quested Visits Authorized * Specialty Diagnoses / Procedures Referred By Contac t Referred To Contact Randi Larson APRN, C.N.P., D.N.P. 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 [address] [place] [address] [facility] Region Referral ID Status Reason Start Date Expiration Date Visits Re quested Visits Authorized [id number] Closed 12/14/2022 12/14/2023 1 1 Encounter Details Date Type Department Care Team (Late st Contact Info) Description 12/14/2022 Orders Only Department of Radiation Oncology in [place], [place] [address] [place] [address] Randi Larson APRN, C.N.P., D.N.P. [address] [place] [address] Malignant Neoplasm Of Breast Lower Outer Quadrant [...] CT Simulation (12/20/2022 10:00 AM CDT) Narrative FELTON SHELLI - 12/20/2022 10:00 AM CDT Rosa Murray, RTT ? 12/20/2022 10:28 AM Initial Rad Onc Treatment Planning CT Simulation Performed by: Cami Lal M.D. Authorized by: Cami Lal M.D. ?? 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
--- OUTSIDE RECORDS SUMMARY | 2023-06-24 08:51 | XMS_ITS | Encounter Summary ---
Author Name Unknown Organization [facility] Address [address] [place] [address] Care Team Providers Care Nuclear Control Operator Name Role Phone Unavailable Primary Care Provider Unavailabl e Encounter Details Date Type Department Care Team (Latest Contact Info) Description 12/28/2022 9:43 AM CDT Hospital Encounter Department of Radiation Oncology in [place], [place] [address] [place] [phone] Cami Lal I. [address] [place] [address] Discharge Disposition: Home or Self Care Social [...] 1 tablet by mouth. 0 06/24/2022 omega 2-omy-fqo-fish oil 1,200 (144-216) mg capsule Take 1 [...]
--- OUTSIDE RECORDS SUMMARY | 2023-06-24 08:51 | XMS_ITS | Encounter Summary ---
Author Name Unknown Organization [facility] Address [address] [place] [address] Care Team Providers Care Electronics Design Engineer Name Role Phone Unavailable Primary Care Provider Unavailabl e Reason for Visit * Appointment Request (Routine) - Closed Specialty Diagnoses / Procedures Referred By Donell t Referred To Contact Radiation Oncology Chen Zambrano M.D. [address] [place] [address] Referral ID Status Reason Start Date Expiration Date Visits Re quested Visits Authorized [id number] Closed 12/07/2022 12/07/2023 1 1 Encounter Details Date Type Department Care Team (Latest Contact Info) Description 12/20/2022 8:52 AM CDT - 12/20/2022 9:59 AM CDT Hospital Encounter Department of Radiation Oncology in [place], [place] [address] [place] [address] Caim Lal I. [address] [place] [phone] Malignant Neoplasm Of Breast Lower Outer Quadrant [...] 1 tablet by mouth. 0 06/24/2022 omega 7-sdo-jpf-fish oil 1,200 (144-216) mg capsule Take 1 [...] NEOADJUVANT CHEMOTHERAPY: 1. Residual invasive ductal carcinoma, Loan grade II of III (see comment) a. [...] Breast Ancillary Testing: Performed on prior case ([id number]) a. Hormone Receptors: Estrogen receptor: Positive (99%, [...] Examined (sentinel and non-sentinel): 8 Number of [place] Nodes Examined: 7 PATHOLOGIC STAGE CLASSIFICATION (pTNM, AJCC 8th Edition) TNM Descriptors: y (post-treatment) pT Category: pT1c pN Category: pN0 12/27/2022 - Radiation Therapy Radiation Therapy Treatment Details (Noted on 12/14/2022) Site: Right Breast Technique: 3D EMBEDDED DEVELOPER Goal: Curative Planned Treatment Start Date: 12/27/2022 [...] Stage IB (cT2, cN1, cM0, G3, ER+, NV+, HER2+) invasive ductal carcinoma of the right breast s/p neoadjuvant chemotherapy and right breast lumpectomy and right lymph node excision, ypT1c, pN0, cM0,G2, ER+, NV+, HER2+ I had a discussion with the [...] patient care. Signed by: Corazon Nation P.A.-C., M.SDonato 12/20/2022 10:41 AM CDT [facility] [address] [place] [address] Associated attestation - Cami Lal I. - 12/20/2022 11:19 AM CDT RADIATION ONCOLOGY CONSULT I saw and evaluated the patient and participated in the herron portions of the service. I reviewed thedocumentation of Ms. Corazon Nation PA-C, MS and agree with the findings and plan. Please see Ms. Nation's detailed note for the patient's initial presentation and work-up. Briefly, Ms. Burks is a very pleasant 67 year old female who received neoadjuvant chemotherapy for her ER/NV/HER2 positive right sided breast cancer (2.3cm, 3 [...] We discussed the acute as well as supervisor intermediates risks, including, but not limited to fatigue, [...] next Tuesday or Tuesday. My thanks to Oliverio, Sebastián, and Mumtaz for the opportunity to participate in this [...] Stage IB (cT2, cN1, cM0, G3, ER+, NV+, HER2+) invasive ductal carcinoma of the right breast s/p neoadjuvant chemotherapy and right breast lumpectomy and right lymph node excision, ypT1c, pN0, cM0,G2, ER+, NV+, HER2+ Signed by: Cami Lal M.D. 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
--- OUTSIDE RECORDS SUMMARY | 2023-06-24 08:51 | XMS_ITS | Clinical Summary ---
Author Name Unknown Organization [facility] Address [place], [place] [address] Care Team Providers Care Felt Hat Inspector And Packer Name Role Phone September, Kelly Darling RN, BSN Unavailable [phone] Nabila Pandya MD Primary Care Provider [phone] Allergies No known active allergies Medications Medication [...] Description 03/25/2023 9:00 AM CDT Orders Only [facility] [address] [place] [address] 2 scans: (2-Ord) ECHO TTE COMPLETE WO CONTRAST ([id number]) 03/25/2023 Travel from Last 3 Months Immunizations Name Administration Dates Next Due Influenza Virus, Unspecified 05/06/2009,02/22/19 96 Tdap 07/11/2012 Family History Medical History Relation Name Comments Heart Disease Father [place] Hypertension Mother healthy Cancer-colon Paternal Grandfather Relation [...] 03/17/2017 11:05 AM CDT Plan of Treatment Upcoming Encounters Date Type Department Care Team (Late st Contact Info) Description 06/24/2023 9:00 AM TUYERE FITTER Orders Only [facility] [address] [place] [address] Health Maintenance Due Date Last Done Comments Zoster (shingles) series for age 50+ (1 of 2) 2004 Colonoscopy through age 75 05/23/2013 01/01 /2004 (Completed outside of [facility]) Mammogram for age 45-75 07/11/2013 07/11/19 13 (Completed outside of [facility]) Depression screening for age 12+ 09/25/2016 09/26/19 [...] Narrative 03/25/2023 10:26 AM CDT ECHOCARDIOGRAM LYNNETTE GABRIEL ?Accession#: ?? [id number] : ?1955 67 years Study Date: ?? 03/25/2023 9:11:39 AM Gender: F ? BP: ? 127/76 mmHg Height: 168.00 cm ? BSA: ?1.87 m? ? ? Weight: 77.00 kg ?Tech: ? MTS ?Referring MD: ANTHONY RODRIGUES Site: ? [facility] Reading Location: MOBILE OP Patient Location: Outpatient. [...] Global longitudinal strain analysis was performed using [employer] App software. Current global longitudinal strain is normal [...] . This study was interpreted by an [facility] accredited facility. CC: [facility] (med [facility]) [facility]. ??Final ?? Procedure Note Rodrigo Ramirez MD - 03/25/2023 ECHOCARDIOGRAM LYNNETTE GABRIEL : 1955 67 years Study Date: 03/25/2023 9:11:39 AM Gender: F BP: 127/76 mmHg Height: 168.00 cm BSA: 1.87 m? ? ? Weight: 77.00 kg Tech: [facility] Referring MD: ANTHONY RODRIGUES Site: [facility] Reading Location: MOBILE OP Patient [...] sized. Global longitudinal strain analysis was performedusing [employer] software. Current global longitudinal strain is normal [...] interpreted by an [facility] accredited facility. CC: [facility] (med records) [facility]. Final Anthony Rodrigues MD ECHO ORD from Last 3 Months Care Teams Felt Hat Inspector And Packer Relationship Specialty Start Date End Date Nabila Pandya MD [address] [place] [address] PCP - General Emergency Medicine 07/01/22September, Kelly Darling RN, BSN [address] [address] Cloth Mercerizer Back Tender Oncology 10/10/15
--- OUTSIDE RECORDS SUMMARY | 2023-06-24 08:51 | XMS_ITS | Encounter Summary ---
Author Name Unknown Organization [facility] Address [address] [place] [address] Care Team Providers Care Woven Paper Hat Mender Name Role Phone Unavailable Primary Care Provider Unavailabl e Reason for Visit * Reason Comments Med Refill Encounter Details Date Type Department Care Team (Late st Contact Info) Description 08/27/2022 Refill Department of Oncology in [address] [address] Elaine Jean M.D. [address] [place] [address] Med Refill Social History Tobacco Use [...] HOURS NEEDED FOR NAUSEA Pharmacy (include location): [facility]/pharmacy #[id number] - [place], [place] - [address] documented in this encounter Plan of Treatment Not on file documented as of this encounter Visit Diagnoses Diagnosis Malignant Neoplasm Of Unspecified Site Of Laterality Unknown Female Breast (HCC) documented in this encounter
--- OUTSIDE RECORDS SUMMARY | 2023-06-24 08:51 | XMS_ITS | Encounter Summary ---
Author Name Unknown Organization [facility] Address [address] [place] [address] Care Team Providers Care Front End Engineer Name Role Phone Unavailable Primary Care Provider Unavailabl e Encounter Details Date Type Department Care Team (Latest Contact Info) Description 12/27/2022 11:03 AM CDT - 12/27/2022 11:59 PM CDT Hospital Encounter Department of Radiation Oncology in [place], [place] [address] [place] [phone] Cami Lal I. [address] [place] [address] Discharge Disposition: Home or Self Care Social [...] 1 tablet by mouth. 0 06/24/2022 omega 2-fsf-ach-fish oil 1,200 (144-216) mg capsule Take 1 [...]
== END 2023-06-24 08:47 | disposition home or self-care (01) ==
LOC: RAD 08:47
PROVIDERS: PCP Emergency Medicine; Visit Provider Physician Assistant
DX: C50.912 Malignant neoplasm of unspecified site of left female breast (principal); Z51.81 Encounter for therapeutic drug level monitoring; Z79.899 Other long term (current) drug therapy
CPT/HCPCS: 93306

== ENCOUNTER 2023-06-29 09:00 | Outpatient (RCR) | payer MEDICARE, BC, SELFPAY ==
[2023-01-05 08:31] VITALS: BP 91/62; PULSE 94; RESP 18; TEMP 36.4; O2SAT 97
[2023-01-05 09:01] LABS: Hematocrit 30.2 % (33.0-51.0); Hemoglobin* 10.4 gm/dL (12.0-16.0); Lymphocytes Percent Auto 14.3 % (20-44); Mean Corpuscular HGB Conc 34 gm/dL (32-36); Mean Corpuscular Hemoglobin 33 pg (26-34); Mean Corpuscular Volume 97 fL (80-100); Monocytes Percent Auto 8.3 % (0.0-11.0); Neutrophils Percent Auto 75.6 % (42.0-72.0); Platelet Count* 230 K/uL (140-440); RDW Coefficient of Variation % 11.7 % (11.5-15.5); Red Blood Count 3.12 m/uL (4.00-5.20); White Blood Count* 5.05 K/uL (4.50-11.00)
[2023-01-05 09:02] LABS: Basophils Absolute Auto 0.03 K/uL (0.00-0.30); Basophils Percent Auto 0.6 % (0.0-3.0); Eosinophils Absolute Auto 0.05 K/uL (0.00-0.50); Immature Granulocytes Abs Auto 0.01 K/uL (0.00-0.30); Immature Granulocytes Pct Auto 0.2 %
[2023-01-05 09:08] LABS: Slide Review Reflex No
[2023-01-05 09:35] LABS: Albumin* 4.5 g/dL (3.3-5.0); Chloride* 107 mmol/L (96-114); Potassium* 3.5 mmol/L (3.6-5.1); Sodium* 141 mmol/L (135-149)
[2023-01-05 09:38] LABS: Alanine Aminotransferase* 29 U/L (4-35); Alkaline Phosphatase* 86 U/L (40-150); Aspartate Amino Transferase* 23 U/L (12-35); Bilirubin Total* 0.5 mg/dL (0.1-1.5); Blood Urea Nitrogen* 19 mg/dL (7-30); Carbon Dioxide* 23 mmol/L (20-32); Estimated Glomerular Filt Rate 61 ml/min; Glucose* 101 mg/dL (60-115); Total Protein* 7.3 g/dL (6.0-8.3)
[2023-01-05 09:39] LABS: Calcium* 9.9 mg/dL (8.4-10.6)
[2023-01-05] MEDS: dexAMETHasone 10 MG in 0.9 % SODIUM CHLORIDE 100 ml 100 ML 420 MG IVPB (10:13)
[2023-01-05] MEDS: GRANISETRON 1 MG/ML inj IVP (10:13)
--- NOTE | 2023-01-05 14:41 | PC.NURSE ---
Called pt today to report that her most recent ECHO done on 12/31/2022 was reviewed and looks good. EF 65-70%. Pt verbalized understanding. No questions.
[2023-01-26 08:34] LABS: Basophils Percent Auto 0.7 % (0.0-3.0); Eosinophils Percent Auto 2.6 % (0.0-7.0); Hematocrit 34.2 % (33.0-51.0); Hemoglobin* 11.8 gm/dL (12.0-16.0); Immature Granulocytes Pct Auto 0.2 %; Lymphocytes Percent Auto 15.9 % (20-44); Mean Corpuscular HGB Conc 35 gm/dL (32-36); Mean Corpuscular Hemoglobin 32 pg (26-34); Mean Corpuscular Volume 94 fL (80-100); Monocytes Percent Auto 10.9 % (0.0-11.0); Neutrophils Percent Auto 69.7 % (42.0-72.0); Platelet Count* 211 K/uL (140-440); RDW Coefficient of Variation % 11.7 % (11.5-15.5); Red Blood Count 3.65 m/uL (4.00-5.20); White Blood Count* 4.21 K/uL (4.50-11.00)
[2023-01-26 08:43] LABS: Slide Review Reflex No
[2023-01-26 08:47] LABS: Albumin* 4.4 g/dL (3.3-5.0); Chloride* 105 mmol/L (96-114); Sodium* 140 mmol/L (135-149)
[2023-01-26 08:50] LABS: Alkaline Phosphatase* 73 U/L (40-150); Anion Gap 7 mEq/L (7-15); Aspartate Amino Transferase* 34 U/L (12-35); Bilirubin Total* 0.5 mg/dL (0.1-1.5); Blood Urea Nitrogen* 16 mg/dL (7-30); Carbon Dioxide* 28 mmol/L (20-32); Creatinine* 0.9 mg/dL (0.5-1.5); Estimated Glomerular Filt Rate 70 ml/min; Total Protein* 7.5 g/dL (6.0-8.3)
[2023-01-26 08:51] LABS: Alanine Aminotransferase* 26 U/L (4-35); Glucose* 91 mg/dL (60-115)
[2023-01-26] MEDS: dexAMETHasone 10 MG in 0.9 % SODIUM CHLORIDE 100 ml 100 ML 404 MG IVPB (10:29)
[2023-01-26] MEDS: GRANISETRON 1 MG/ML inj IVP (10:29)
[2023-02-17 08:18] LABS: Basophils Percent Auto 0.8 % (0.0-3.0); Eosinophils Percent Auto 4.3 % (0.0-7.0); Hematocrit 35.3 % (33.0-51.0); Hemoglobin* 12.2 gm/dL (12.0-16.0); Lymphocytes Percent Auto 22.1 % (20-44); Mean Corpuscular HGB Conc 35 gm/dL (32-36); Mean Corpuscular Hemoglobin 31 pg (26-34); Mean Corpuscular Volume 89 fL (80-100); Monocytes Percent Auto 13.2 % (0.0-11.0); Neutrophils Percent Auto 59.6 % (42.0-72.0); Platelet Count* 245 K/uL (140-440); RDW Coefficient of Variation % 11.8 % (11.5-15.5); Red Blood Count 3.97 m/uL (4.00-5.20); White Blood Count* 3.71 K/uL (4.50-11.00)
[2023-02-17 08:23] LABS: Slide Review Reflex No
[2023-02-17 08:28] LABS: Albumin* 4.4 g/dL (3.3-5.0); Chloride* 105 mmol/L (96-114)
[2023-02-17 08:29] LABS: Sodium* 141 mmol/L (135-149)
[2023-02-17 08:31] LABS: Anion Gap 12 mEq/L (7-15); Aspartate Amino Transferase* 36 U/L (12-35); Bilirubin Total* 0.5 mg/dL (0.1-1.5); Carbon Dioxide* 24 mmol/L (20-32); Estimated Glomerular Filt Rate 61 ml/min; Total Protein* 7.5 g/dL (6.0-8.3)
[2023-02-17 08:32] LABS: Alanine Aminotransferase* 27 U/L (4-35); Alkaline Phosphatase* 87 U/L (40-150); Blood Urea Nitrogen* 18 mg/dL (7-30); Calcium* 10.1 mg/dL (8.4-10.6); Glucose* 96 mg/dL (60-115)
[2023-02-17] MEDS: dexAMETHasone 10 MG in 0.9 % SODIUM CHLORIDE 100 ml 100 ML 404 MG IVPB (10:04)
[2023-02-17] MEDS: GRANISETRON 1 MG/ML inj IVP (10:04)
[2023-03-09] MEDS: dexAMETHasone 10 MG in 0.9 % SODIUM CHLORIDE 100 ml 100 ML 404 MG IVPB (09:27)
[2023-03-09] MEDS: GRANISETRON 1 MG/ML inj IVP (09:27)
[2023-03-09] MEDS: SODIUM CHLORIDE 0.9 % (FLUSH) 10 ML SYRINGE IVF (10:28)
[2023-03-09] MEDS: HEPARIN 500 UNIT/5 ML SYRINGE IVF (10:28)
--- NOTE | 2023-03-09 11:43 | ONC.NURNOTE ---
Accompanied pt to Dr. Zambrano appt this morning. Pt to begin Anastrazole; gave information on Zometa and Dental Clearance form to be discussed in more detail at next f/u appt. Pt says she is due to see the dentist and will schedule a follow up soon. Heart Echo: 03/25 RTC with Ary 03/28 with Kadcyla 03/31 Screening mammogram 06/03/23
[2023-03-31 08:24] VITALS: BP 136/89; PULSE 78; RESP 16; TEMP 36.5; O2SAT 98
[2023-03-31 08:36] LABS: Basophils Absolute Auto 0.02 K/uL (0.00-0.30); Basophils Percent Auto 0.4 % (0.0-3.0); Eosinophils Absolute Auto 0.09 K/uL (0.00-0.50); Hematocrit 34.7 % (33.0-51.0); Immature Granulocytes Abs Auto 0.01 K/uL (0.00-0.30); Immature Granulocytes Pct Auto 0.2 %; Lymphocytes Absolute Auto 1.03 K/uL (0.90-2.90); Lymphocytes Percent Auto 22.8 % (20-44); Mean Corpuscular HGB Conc 35 gm/dL (32-36); Mean Corpuscular Hemoglobin 30 pg (26-34); Mean Corpuscular Volume 88 fL (80-100); Monocytes Percent Auto 10.6 % (0.0-11.0); Neutrophils Absolute Auto 2.88 K/uL (1.7-7.0); Platelet Count* 228 K/uL (140-440); RDW Coefficient of Variation % 12.6 % (11.5-15.5); Red Blood Count 3.96 m/uL (4.00-5.20); White Blood Count* 4.51 K/uL (4.50-11.00)
[2023-03-31 08:38] LABS: Slide Review Reflex No
[2023-03-31 09:07] LABS: Albumin* 4.2 g/dL (3.3-5.0); Chloride* 104 mmol/L (96-114); Potassium* 3.9 mmol/L (3.6-5.1); Sodium* 139 mmol/L (135-149)
[2023-03-31 09:09] LABS: Estimated Glomerular Filt Rate 61 ml/min
[2023-03-31 09:10] LABS: Alanine Aminotransferase* 35 U/L (4-35); Alkaline Phosphatase* 80 U/L (40-150); Anion Gap 9 mEq/L (7-15); Aspartate Amino Transferase* 49 U/L (12-35); Bilirubin Total* 0.7 mg/dL (0.1-1.5); Blood Urea Nitrogen* 23 mg/dL (7-30); Calcium* 9.7 mg/dL (8.4-10.6); Carbon Dioxide* 26 mmol/L (20-32); Glucose* 93 mg/dL (60-115); Total Protein* 7.3 g/dL (6.0-8.3)
[2023-03-31] MEDS: dexAMETHasone 10 MG in 0.9 % SODIUM CHLORIDE 100 ml 100 ML 404 MG IVPB (09:58)
[2023-03-31] MEDS: GRANISETRON 1 MG/ML inj IVP (09:58)
[2023-04-20 09:03] LABS: Basophils Percent Auto 0.5 % (0.0-3.0); Eosinophils Percent Auto 2.1 % (0.0-7.0); Hematocrit 35.5 % (33.0-51.0); Hemoglobin* 12.2 gm/dL (12.0-16.0); Immature Granulocytes Pct Auto 0.2 %; Lymphocytes Percent Auto 22.1 % (20-44); Mean Corpuscular HGB Conc 34 gm/dL (32-36); Mean Corpuscular Hemoglobin 31 pg (26-34); Mean Corpuscular Volume 89 fL (80-100); Monocytes Percent Auto 12.8 % (0.0-11.0); Neutrophils Percent Auto 62.3 % (42.0-72.0); Platelet Count* 204 K/uL (140-440); RDW Coefficient of Variation % 13.3 % (11.5-15.5)
[2023-04-20 09:04] LABS: Slide Review Reflex No
[2023-04-20 09:16] LABS: Albumin* 4.6 g/dL (3.3-5.0); Chloride* 104 mmol/L (96-114); Potassium* 3.8 mmol/L (3.6-5.1); Sodium* 140 mmol/L (135-149)
[2023-04-20 09:19] LABS: Alanine Aminotransferase* 36 U/L (4-35); Alkaline Phosphatase* 87 U/L (40-150); Anion Gap 10 mEq/L (7-15); Aspartate Amino Transferase* 44 U/L (12-35); Bilirubin Total* 0.9 mg/dL (0.1-1.5); Blood Urea Nitrogen* 25 mg/dL (7-30); Carbon Dioxide* 26 mmol/L (20-32); Creatinine* 1.2 mg/dL (0.5-1.5); Estimated Glomerular Filt Rate 49 ml/min; Glucose* 109 mg/dL (60-115); Total Protein* 7.5 g/dL (6.0-8.3)
[2023-04-20 09:20] LABS: Calcium* 9.8 mg/dL (8.4-10.6)
[2023-04-20] MEDS: 0.9 % SODIUM CHLORIDE 250 ml IV (09:58)
[2023-04-20] MEDS: GRANISETRON 1 MG/ML inj IVP (09:58)
[2023-04-20] MEDS: SODIUM CHLORIDE 0.9 % (FLUSH) 10 ML SYRINGE IVF ×2 (09:58→11:33)
[2023-04-20] MEDS: dexAMETHasone 10 MG in 0.9 % SODIUM CHLORIDE 100 ml 100 ML 420 MG IVPB (10:26)
[2023-04-20] MEDS: HEPARIN 500 UNIT/5 ML SYRINGE IVF (11:33)
[2023-05-11 11:50] VITALS: BP 136/84; PULSE 82; RESP 16; TEMP 36.5; O2SAT 98
[2023-05-11 12:01] LABS: Basophils Absolute Auto 0.02 K/uL (0.00-0.30); Basophils Percent Auto 0.4 % (0.0-3.0); Eosinophils Absolute Auto 0.06 K/uL (0.00-0.50); Eosinophils Percent Auto 1.3 % (0.0-7.0); Hematocrit 36.8 % (33.0-51.0); Hemoglobin* 12.8 gm/dL (12.0-16.0); Immature Granulocytes Abs Auto 0.01 K/uL (0.00-0.30); Immature Granulocytes Pct Auto 0.2 %; Lymphocytes Absolute Auto 1.03 K/uL (0.90-2.90); Lymphocytes Percent Auto 22.1 % (20-44); Mean Corpuscular HGB Conc 35 gm/dL (32-36); Mean Corpuscular Hemoglobin 31 pg (26-34); Mean Corpuscular Volume 88 fL (80-100); Neutrophils Absolute Auto 2.98 K/uL (1.7-7.0); Platelet Count* 181 K/uL (140-440); RDW Coefficient of Variation % 13.1 % (11.5-15.5); Red Blood Count 4.18 m/uL (4.00-5.20); White Blood Count* 4.66 K/uL (4.50-11.00)
[2023-05-11 12:03] LABS: Slide Review Reflex No
[2023-05-11 12:07] LABS: Albumin* 4.7 g/dL (3.3-5.0); Chloride* 101 mmol/L (96-114)
[2023-05-11 12:08] LABS: Potassium* 3.9 mmol/L (3.6-5.1); Sodium* 138 mmol/L (135-149)
[2023-05-11 12:10] LABS: Alkaline Phosphatase* 77 U/L (40-150); Anion Gap 10 mEq/L (7-15); Aspartate Amino Transferase* 45 U/L (12-35); Bilirubin Total* 0.7 mg/dL (0.1-1.5); Blood Urea Nitrogen* 23 mg/dL (7-30); Carbon Dioxide* 27 mmol/L (20-32); Estimated Glomerular Filt Rate 61 ml/min; Total Protein* 7.7 g/dL (6.0-8.3)
[2023-05-11 12:11] LABS: Alanine Aminotransferase* 41 U/L (4-35); Calcium* 9.7 mg/dL (8.4-10.6); Glucose* 86 mg/dL (60-115)
[2023-05-11] MEDS: GRANISETRON 1 MG/ML inj IVP (12:58)
[2023-05-11] MEDS: 0.9 % SODIUM CHLORIDE 250 ml IV (12:58)
[2023-05-11] MEDS: HEPARIN 500 UNIT/5 ML SYRINGE IVF (12:59)
[2023-05-11] MEDS: dexAMETHasone 10 MG in 0.9 % SODIUM CHLORIDE 100 ml 100 ML 404 MG IVPB (12:59)
[2023-05-11] MEDS: SODIUM CHLORIDE 0.9 % (FLUSH) 10 ML SYRINGE IVF (12:59)
[2023-06-06 09:10] LABS: Basophils Percent Auto 0.9 % (0.0-3.0); Eosinophils Percent Auto 2.2 % (0.0-7.0); Hematocrit 37.3 % (33.0-51.0); Hemoglobin* 13.1 gm/dL (12.0-16.0); Immature Granulocytes Pct Auto 0.2 %; Lymphocytes Percent Auto 20.9 % (20-44); Mean Corpuscular HGB Conc 35 gm/dL (32-36); Mean Corpuscular Hemoglobin 31 pg (26-34); Mean Corpuscular Volume 88 fL (80-100); Monocytes Percent Auto 8.8 % (0.0-11.0); Platelet Count* 172 K/uL (140-440); RDW Coefficient of Variation % 12.8 % (11.5-15.5); Red Blood Count 4.26 m/uL (4.00-5.20); White Blood Count* 4.45 K/uL (4.50-11.00)
[2023-06-06 09:21] LABS: Slide Review Reflex No
[2023-06-06 11:40] LABS: Albumin* 4.5 g/dL (3.3-5.0); Chloride* 106 mmol/L (96-114)
[2023-06-06 11:41] LABS: Potassium* 3.9 mmol/L (3.6-5.1); Sodium* 140 mmol/L (135-149)
[2023-06-06 11:43] LABS: Anion Gap 6 mEq/L (7-15); Aspartate Amino Transferase* 40 U/L (12-35); Bilirubin Total* 0.5 mg/dL (0.1-1.5); Carbon Dioxide* 28 mmol/L (20-32); Est. Creatinine Clearance* 48.45; Estimated Glomerular Filt Rate 61 ml/min; Total Protein* 7.4 g/dL (6.0-8.3)
[2023-06-06 11:44] LABS: Alanine Aminotransferase* 31 U/L (4-35); Alkaline Phosphatase* 91 U/L (40-150); Blood Urea Nitrogen* 19 mg/dL (7-30); Calcium* 9.8 mg/dL (8.4-10.6); Glucose* 105 mg/dL (60-115)
[2023-06-06] MEDS: dexAMETHasone 10 MG in 0.9 % SODIUM CHLORIDE 100 ml 100 ML 420 MG IVPB (12:13)
[2023-06-06] MEDS: SODIUM CHLORIDE 0.9 % (FLUSH) 10 ML SYRINGE IVF ×2 (12:14→13:16)
[2023-06-06] MEDS: GRANISETRON 1 MG/ML inj IVP (12:14)
[2023-06-06] MEDS: 0.9 % SODIUM CHLORIDE 250 ml IV (12:14)
[2023-06-06] MEDS: HEPARIN 500 UNIT/5 ML SYRINGE IVF (13:16)
[2023-06-29 09:00] VITALS: BP 142/90; PULSE 76; RESP 16; TEMP 35.9; O2SAT 99
[2023-06-29 09:21] LABS: Basophils Percent Auto 0.8 % (0.0-3.0); Eosinophils Percent Auto 1.3 % (0.0-7.0); Hematocrit 36.8 % (33.0-51.0); Hemoglobin* 12.9 gm/dL (12.0-16.0); Lymphocytes Percent Auto 24.3 % (20-44); Mean Corpuscular HGB Conc 35 gm/dL (32-36); Mean Corpuscular Hemoglobin 31 pg (26-34); Mean Corpuscular Volume 87 fL (80-100); Monocytes Percent Auto 11.4 % (0.0-11.0); Neutrophils Percent Auto 62.2 % (42.0-72.0); Platelet Count* 165 K/uL (140-440); RDW Coefficient of Variation % 12.8 % (11.5-15.5); Red Blood Count 4.22 m/uL (4.00-5.20); White Blood Count* 3.78 K/uL (4.50-11.00)
[2023-06-29 09:34] LABS: Albumin* 4.8 g/dL (3.3-5.0); Chloride* 102 mmol/L (96-114); Potassium* 3.9 mmol/L (3.6-5.1); Sodium* 136 mmol/L (135-149)
[2023-06-29 09:37] LABS: Alanine Aminotransferase* 33 U/L (4-35); Alkaline Phosphatase* 104 U/L (40-150); Anion Gap 12 mEq/L (7-15); Aspartate Amino Transferase* 44 U/L (12-35); Bilirubin Total* 0.7 mg/dL (0.1-1.5); Blood Urea Nitrogen* 21 mg/dL (7-30); Carbon Dioxide* 22 mmol/L (20-32); Creatinine* 0.9 mg/dL (0.5-1.5); Est. Creatinine Clearance* 48.45; Estimated Glomerular Filt Rate 70 ml/min; Glucose* 105 mg/dL (60-115); Total Protein* 7.3 g/dL (6.0-8.3)
[2023-06-29 09:38] LABS: Calcium* 9.9 mg/dL (8.4-10.6)
[2023-06-29 09:39] LABS: Slide Review Reflex No
[2023-06-29] MEDS: GRANISETRON 1 MG/ML inj IVP (10:09)
[2023-06-29] MEDS: 0.9 % SODIUM CHLORIDE 250 ml IV (10:10)
[2023-06-29] MEDS: SODIUM CHLORIDE 0.9 % (FLUSH) 10 ML SYRINGE IVF ×2 (10:10→11:25)
[2023-06-29] MEDS: dexAMETHasone 10 MG in 0.9 % SODIUM CHLORIDE 100 ml 100 ML 404 MG IVPB (10:29)
[2023-06-29] MEDS: HEPARIN 500 UNIT/5 ML SYRINGE IVF (11:25)
== END 2023-07-04 23:59 | disposition home or self-care (01) ==
LOC: CCIC 09:00
PROVIDERS: Clinical Nurse Specialist; Internal Medicine Hematology & Oncology; PCP Emergency Medicine; Referring Provider Emergency Medicine; Visit Provider Physician Assistant
DX: Z51.11 Encounter for antineoplastic chemotherapy (principal); C50.911 Malignant neoplasm of unspecified site of right female breast; Z17.0 Estrogen receptor positive status [ER+]; C77.3 Secondary and unspecified malignant neoplasm of axilla and upper limb lymph nodes
CPT/HCPCS: 36415; 36591; 80053; 85025; 96376; 96413; 96415; 99212; 99215; G0463; J1100; J1626; J1642; J7050; J9354

== ENCOUNTER 2023-10-05 07:47 | Outpatient (CLI) | payer MEDICARE, BC, SELFPAY ==
--- OUTSIDE RECORDS SUMMARY | 2023-10-05 07:50 | XMS_ITS | Clinical Summary ---
Author Name Unknown Organization [facility] Address [address] [place] [address] Care Team Providers Care Driller Machine Name Role Phone Unavailable Primary Care Provider Unavailabl e Source Comments Patient records contain information from all sites at [facility]. For routine questions regarding patient records, call [phone] during business hours, M-F 8:00 AM - 5:00 PM Central Time. Record requests for emergency care only can be directed to [phone] at any time.[facility] Allergies Active Allergy Reactions Criticality Noted Date Comments Pollen Extracts Other (see comments) Low 12/20/2022 Sneezing, itchy eyes Medications Medication Sig Dispensed Refills Start Date End Date Status acetaminophen (Tylenol Extra Strength) 500 mg tablet Take 500 mg by mouth. 06/24/2022 Active losartan (COZAAR) 50 mg tablet Take 50 mg by mouth. 12/28/2021 Acti ve atorvastatin calcium (ATORVASTATIN ORAL) Take 20 mg by mouth. 12/28/2021 Active cholecalciferol (VITAMIN D3) 1,250 mcg (50,000 Unit) capsule Take 125 mcg by mouth. 06/24/2022 Active diphenoxylate-atropi ne (LomotiL) 2.5-0.025 mg per tablet Take 1 tablet by mouth. 07/29/2022 Active multivit with minerals/lutein (MULTIVITAMIN 50 PLUS ORAL) Take 1 tablet by mouth. 06/24/2022 Active omega 3-elw-yus-fish oil 1,200 (144-216) mg capsule Take 1 capsule by mouth. 06/24/2022 Active ondansetron (ZOFRAN) 4 mg/5 mL solution Take 8 mg by mouth every 8 (eight) hours as needed for nausea. 09/01/2022 Active prednisoLONE acetate (PRED FORTE) 1 % ophthalmic suspension Administer 1 drop into affected eye(s). 09/09/2022 Active ondansetron (ZOFRAN) 8 mg tablet every 8 (eight) hours as needed for nausea. 11/30/2022 Active prochlorperazine (COMPAZINE) 5 mg tablet Take 10 mg by mouth every 8 (eight) hours as needed for nausea. 07/29/2022 Active B complex-vitamin (SUPER B-50) capsule Take 1 tablet by mouth. 06/24/2022 Active albuterol 90 mcg/actuation inhaler Inhale 2 puffs. 12/28/2021 Active loratadine-pseudoeph edrine (CLARITIN-D 24-hour) 10-240 mg per 24 hr tablet Take 1 tablet by mouth. 09/02/2014 Active mometasone (ELOCON) 0.1 % cream Apply 1 Application topically daily. Apply to skin within the treatment field. 100 g 12/20/2022 Active Active Problems Problem Noted Date Diagnosed Date Malignant Neoplasm Of Breast Lower Outer Quadrant Female Right 07/29/2022 Cancer Staging:Clinical stage from 06/11/2022:Stage IB(cT2, cN1(f), cM0, G3, ER+, FL+, HER2+) - Unsigned Pathologic stage from 11/18/2022:No Stage Recommended(ypT1c, pN0(sn), cM0, G2, ER+, FL+, HER2+) - Unsigned Family History Medical History [...] - Td or Tdap) 07/11/2022 07/11/2012, 07/01/2012 COVID-19 Vaccine (2022- season) 2023 03/22/2023, 03/09/2022, 09/08/2021, Additional history exists Depression Screening (Annual PHQ-2) 05/23/2023 Fall Risk Screen (Annual) 05/23/2023 Mammogram 11/19/2023 11/18/2022, 10/22, 11/18/2022, Additional history exists Influenza Vaccine Completed 03/22/2023, , 03/09/2022, Additional history exists HPV Vaccines Aged Out No longer eligi ble based on patient's age to complete this topic Procedures Procedure Name Priority Date/Time Associated Diagnosis Comments OUTSIDE MG MAMMOGRAM Routine 11/18/2022 12:45 PM CDT from Last 3 Months or Most Recently Relevant to Health Maintenance Results * MM surgical specimen RT-Outside Mammogram (11/18/2022 12:45 PM CDT) Narrative [facility] - 12/10/2022 10:50 AM CDT This order has been created and auto-finalized to support the import of outside images. If available, original interpretation can be found on the Media Tab in Chart Review, in Document Viewer, or as an image in QREADS. If a re-interpretation or overread is required please follow defined workflow. ?? Provider Not In System IMG BI PROCEDURES [facility] NA from Last 3 Months or Most Recently Relevant to Health Maintenance
--- OUTSIDE RECORDS SUMMARY | 2023-10-05 07:50 | XMS_ITS ---
Author Name Unknown Organization [facility] Address [address] [place] [address] Care Team Providers Care Litigation Manager Name Role Phone Unavailable Unavailable Unavailable Surgery Details Not on file Complications Check Surgery Details section. Procedure Estimated Blood Loss Check Surgery Details section. Procedure Findings Check Surgery Details section. Procedure Specimens Taken Check Surgery Details section.
--- OUTSIDE RECORDS SUMMARY | 2023-10-05 07:50 | XMS_ITS | Referral Summary ---
Author Name Unknown Organization [facility] Address [address] [place] [address] Care Team Providers Care Copping Machine Operator Name Role Phone Unavailable Primary Care Provider Unavailabl e Source Comments Patient records contain information from all sites at [facility]. For routine questions regarding patient records, call [phone] during business hours, M-F 8:00 AM - 5:00 PM Central Time. Record requests for emergency care only can be directed to [phone] at any time.[facility] Allergies Active Allergy Reactions Criticality Noted Date [...] 1 tablet by mouth. 06/24/2022 Active omega 5-uei-zdk-fish oil 1,200 (144-216) mg capsule Take 1 [...] cM0, G2, ER+, CA+, HER2+) - Unsigned Social History Tobacco Use [...]
--- OUTSIDE RECORDS SUMMARY | 2023-10-05 07:50 | XMS_ITS ---
Author Name Unknown Organization [facility] Address [address] [place] [address] Care Team Providers Care Delivery Technician Name Role Phone Unavailable Primary Care Provider Unavailabl e Active Problems Problem Noted Date Diagnosed Date Malignant Neoplasm Of Breast Lower Outer Quadrant Female Right 07/29/2022 Cancer Staging:Clinical stage from 06/11/2022:Stage IB(cT2, cN1(f), cM0, G3, ER+, CO+, HER2+) - Unsigned Pathologic stage from 11/18/2022:No Stage Recommended(ypT1c, pN0(sn), cM0, G2, ER+, CO+, HER2+) - Unsigned Current Oncology Plans No current plan information found. Past Plans No past plan information found. Radiation Treatments * Plan Last Treated On Elapsed Days Fractions Treated Prescribed Fraction Dose Prescribed Total Dose [id number] 01/20/2023 24 4 of 4 250 cGy 1,000 cG y [id number] 01/14/2023 18 15 of 15 267 cGy 4,005 cGy Reference Point Last Treated On Elapsed Days Session Dose Total Dose [id number] 01/20/2023 24 250 cGy 5,005 cGy
--- OUTSIDE RECORDS SUMMARY | 2023-10-05 07:51 | XMS_ITS | Clinical Summary ---
Author Name Unknown Organization [facility] Address [place], [place] [address] Care Team Providers Care Project Executive Name Role Phone September, Kelly Darling RN, BSN Unavailable [phone] Nabila Pandya MD Primary Care Provider [phone] Allergies No known active allergies Medications Medication [...] tablet TAKE 1.5 TABLETS BY MOUTH DAILY. 01/16/2021 Active atorvastatin (LIPITOR) 20 mg tablet Take 20 mg by mouth at bedtime. 01/14/2021 Active Active Problems Problem Noted Date Diagnosed Date Hemangioma of liver 09/27/2015 Overview: Observation. LFT recheck 01/2016, repeat liver imaging in 6 to 9 months (03/2016). Calculus of gallbladder 09/27/2015 Elevated LFTs 09/26/2015 RUQ pain 09/26/2015 Seborrheic dermatitis 10/18/2014 Resolved Problems Problem Noted Date Diagnosed Date Resolved Date Hepatoma 09/26/2015 09/27/2015 Immunizations Name Administration Dates Next Due Influenza Virus, Unspecified 05/06/2009,02/22/19 96 Tdap 07/11/2012 Family History Medical History Relation Name Comments Heart Disease Father VA Hypertension Mother healthy Cancer-colon Paternal Grandfather Relation [...] Care Team (Late st Contact Info) Description 10/05/2023 8:00 AM CDT Ancillary Procedure [facility] [address] [place] [address] Health Maintenance Due Date Last Done Comments Zoster (shingles) series for age 50+ (1 of 2) 2004 Colonoscopy through age 75 05/23/201305/23 (Completed outside of [facility]) Mammogram for age 45-75 07/11/2013 07/11/19 13 (Completed outside of [facility]) Depression screening for age 12+ 09/25/2016 09/26/19 16, 09/26/2015 BMI (ht and wt on same day) for age 18+ 03/17/2018 03/17/2017, 09/25/2015 DEXA/DXA scan for age 65+ 08/27/2019 Medicare Wellness for age 65+ 08/27/2019 Pneumococcal series for age 65+ (1 of 1 - PCV) 08/27/2019 Lipids for age 45-75 09/03/2019 09/02/2014 Tetanus booster 07/11/2022 07/11/2012 Influenza for age 65+ 01/22/2024 05/06/2009, 996 Tdap Completed 07/11/2012 Hepatitis C screening for ag e 18-79 Completed 09/26/2015 COVID-19 vaccine series Completed 03/22/20 23, 03/09/2022, 09/08/2021, Additional history exists Procedures Procedure Name Priority Date/Time Associated Diagnosis Comments ANTI HCV Routine 09/26/2015 9:57 AM CDT Hepatoma (HC) Elevated LFTs LIPID PANEL W REFLEX MEASURED LDL Routine 09/02/2014 1:29 PM CDT Well woman exam from Last 3 Months or Most Recently Relevant to Health Maintenance Results * ANTI HCV (09/26/2015 9:57 AM CDT) HEPATITIS C ANTIBODY Non-Reacti ve Non-Reacti ve 09/26/2015 5:17 PM CDT [facility] Blood specimen (specimen) BLOOD SPECIMEN / Unknown Venipuncture / Unknown 09/26/2015 9:57 AM CDT 09/26/2015 9:57 AM CDT Narrative [facility] - 09/26/2015 5:17 PM CDT Antibodies to HCV not detected; does not exclude the possibility of exposure to HCV. Isatu Hammonds DO SEND OUTS [facility] [address] [place] [address], * (ABNORMAL) LIPID PANEL W REFLEX MEASURED LDL (09/02/2014 1:29 PM CDT) CHOLESTEROL,TOTAL 238(H) 100 - 199 mg/dL 09/02/2014 8:30 PM CDT [facility] TRIGLYCERIDES 229(H) <150 mg/dL 09/02/2014 8:30 PM CDT [facility] HDL CHOLESTEROL 50 >40 mg/dL 5 8:30 PM CDT [facility] NON-HDL CHOLESTEROL 188(H) <145 mg/dl 09/02/2014 8:30 PM CDT [facility] CHOL/HDL RATIO 4.76(H) <4.50 09/02/2014 8:30 PM CDT [facility] LDL CHOLESTEROL 142(H) <=130 mg/dL 09/02/2014 8:30 PM CDT [facility] PATIENT STATUS FASTING 09/02/2014 8:30 PM CDT [facility] Blood specimen (specimen) BLOOD SPECIMEN / Unknown Venipuncture / Unknown 09/02/2014 1:29 PM CDT 09/02/2014 1:29 PM CDT Eunice Sweeney MD [facility] [address] [place] [address], from Last 3 Months or Most Recently Relevant to Health Maintenance Care Teams Project Executive Relationship Specialty Start Date End Date Nabila Pandya MD [address] [place] [id number] PCP - General Emergency Medicine 07/01/22September, Kelly Darling RN, BSN [address] [phone] Accounting Systems Manager Oncology 10/10/15
--- OUTSIDE RECORDS SUMMARY | 2023-10-05 07:51 | XMS_ITS | Continuity of Care Document ---
Author Name Unknown Organization [facility] Address [address] [address] [place] [address] Phone Care Team Providers Care Central Office Trouble Shooter Name Role Phone Unavailable Unavailable Unavailable Allergies, [...] Encounter [facility] [address] [address], [place], [id number], [place] tel:[phone] [facility] No Information [phone] No Information [facility] [address] [address], [place], [id number], [place] tel:[phone] [facility] Abnormal liver function tests No Information Referring Provider: [place], [address] [place], [address]. tel:[phone] Offic Cons New/estab Mod [facility], [address] [address], [place], [id number], [place] tel:[phone] [facility] Symptoms or Concerns (chief complaint) Abnormal CAT scanAbnormal liver function testsDietary counseling and surveillanceEle vated blood-pressure reading, w/o diagnosis of htn No Information Referring Provider: [place], [address] [place], [address]. tel:[phone] Family History Family Member Type Diagnosis Age At Onset Son Problem (finding) Alive and well Brother Problem (finding) Alive and well Sister Problem (finding) Alive and well Mother Problem (finding) Sister Problem (finding) malignant neop lasm of breast in first degree relative Daughter Problem (finding) Alive and well Father Problem (finding) Payers Payer name Insurance type Covered alliance party ID Authoriza tion(s) [employer] [id number] Social History Type Description Quantity Date Captured [...]
== END 2023-10-05 07:48 | disposition home or self-care (01) ==
LOC: RAD 07:48
PROVIDERS: PCP Emergency Medicine; Visit Provider Physician Assistant
DX: C50.912 Malignant neoplasm of unspecified site of left female breast (principal); I35.0 Nonrheumatic aortic (valve) stenosis; Z51.81 Encounter for therapeutic drug level monitoring; Z79.899 Other long term (current) drug therapy
CPT/HCPCS: 93306

== ENCOUNTER 2023-12-12 09:10 | Outpatient (RCR) | payer MEDICARE, BC, SELFPAY ==
[2023-07-19] MEDS: SODIUM CHLORIDE 0.9 % (FLUSH) 10 ML SYRINGE IVF ×2 (08:45→11:10)
[2023-07-19 08:56] LABS: Basophils Percent Auto 0.7 % (0.0-3.0); Eosinophils Percent Auto 1.7 % (0.0-7.0); Hematocrit 38.3 % (33.0-51.0); Hemoglobin* 13.5 gm/dL (12.0-16.0); Immature Granulocytes Pct Auto 0.2 %; Lymphocytes Percent Auto 25.2 % (20-44); Mean Corpuscular HGB Conc 35 gm/dL (32-36); Mean Corpuscular Hemoglobin 31 pg (26-34); Mean Corpuscular Volume 87 fL (80-100); Monocytes Percent Auto 12.2 % (0.0-11.0); Platelet Count* 155 K/uL (140-440); RDW Coefficient of Variation % 13.1 % (11.5-15.5); Red Blood Count 4.42 m/uL (4.00-5.20); White Blood Count* 4.09 K/uL (4.50-11.00)
[2023-07-19 08:59] LABS: Slide Review Reflex No
[2023-07-19 09:09] LABS: Albumin* 4.6 g/dL (3.3-5.0); Chloride* 102 mmol/L (96-114); Sodium* 139 mmol/L (135-149)
[2023-07-19 09:10] LABS: Potassium* 3.4 mmol/L (3.6-5.1)
[2023-07-19 09:12] LABS: Alkaline Phosphatase* 100 U/L (40-150); Anion Gap 11 mEq/L (7-15); Aspartate Amino Transferase* 50 U/L (12-35); Blood Urea Nitrogen* 18 mg/dL (7-30); Carbon Dioxide* 26 mmol/L (20-32); Estimated Glomerular Filt Rate 61 ml/min; Glucose* 101 mg/dL (60-115); Total Protein* 7.9 g/dL (6.0-8.3)
[2023-07-19 09:13] LABS: Alanine Aminotransferase* 38 U/L (4-35); Calcium* 10.1 mg/dL (8.4-10.6)
[2023-07-19] MEDS: 0.9 % SODIUM CHLORIDE 250 ml IV (10:05)
[2023-07-19] MEDS: GRANISETRON 1 MG/ML inj IVP (10:18)
[2023-07-19] MEDS: dexAMETHasone 10 MG in 0.9 % SODIUM CHLORIDE 100 ml 100 ML 420 MG IVPB (10:18)
[2023-07-19] MEDS: HEPARIN 500 UNIT/5 ML SYRINGE IVF (11:10)
[2023-08-10 08:38] VITALS: BP 146/76; PULSE 82; RESP 16; TEMP 35.8; O2SAT 98
[2023-08-10 09:01] LABS: Basophils Percent Auto 0.7 % (0.0-3.0); Eosinophils Percent Auto 1.2 % (0.0-7.0); Hematocrit 37.8 % (33.0-51.0); Hemoglobin* 13.2 gm/dL (12.0-16.0); Lymphocytes Percent Auto 20.4 % (20-44); Mean Corpuscular HGB Conc 35 gm/dL (32-36); Mean Corpuscular Hemoglobin 31 pg (26-34); Mean Corpuscular Volume 88 fL (80-100); Neutrophils Percent Auto 67.7 % (42.0-72.0); Platelet Count* 132 K/uL (140-440); RDW Coefficient of Variation % 13.2 % (11.5-15.5); Red Blood Count 4.32 m/uL (4.00-5.20); White Blood Count* 4.12 K/uL (4.50-11.00)
[2023-08-10 09:03] LABS: Slide Review Reflex No
[2023-08-10 09:13] LABS: Albumin* 4.5 g/dL (3.3-5.0); Chloride* 106 mmol/L (96-114)
[2023-08-10 09:14] LABS: Potassium* 3.6 mmol/L (3.6-5.1); Sodium* 142 mmol/L (135-149)
[2023-08-10 09:16] LABS: Alkaline Phosphatase* 123 U/L (40-150); Anion Gap 7 mEq/L (7-15); Aspartate Amino Transferase* 51 U/L (12-35); Bilirubin Total* 0.7 mg/dL (0.1-1.5); Blood Urea Nitrogen* 25 mg/dL (7-30); Carbon Dioxide* 29 mmol/L (20-32); Estimated Glomerular Filt Rate 61 ml/min; Total Protein* 7.5 g/dL (6.0-8.3)
[2023-08-10 09:17] LABS: Alanine Aminotransferase* 40 U/L (4-35); Calcium* 10.2 mg/dL (8.4-10.6); Glucose* 123 mg/dL (60-115)
[2023-08-10] MEDS: GRANISETRON 1 MG/ML inj IVP (09:48)
[2023-08-10] MEDS: dexAMETHasone 10 MG in 0.9 % SODIUM CHLORIDE 100 ml 100 ML 404 MG IVPB (09:48)
[2023-08-10] MEDS: 0.9 % SODIUM CHLORIDE 250 ml IV (09:48)
[2023-08-10] MEDS: SODIUM CHLORIDE 0.9 % (FLUSH) 10 ML SYRINGE IVF ×2 (09:48→10:44)
[2023-08-10] MEDS: HEPARIN 500 UNIT/5 ML SYRINGE IVF (10:44)
[2023-09-01 08:33] LABS: Basophils Percent Auto 0.8 % (0.0-3.0); Eosinophils Percent Auto 2.4 % (0.0-7.0); Hematocrit 38.7 % (33.0-51.0); Hemoglobin* 13.6 gm/dL (12.0-16.0); Lymphocytes Percent Auto 23.4 % (20-44); Mean Corpuscular HGB Conc 35 gm/dL (32-36); Mean Corpuscular Hemoglobin 31 pg (26-34); Mean Corpuscular Volume 88 fL (80-100); Monocytes Percent Auto 13.9 % (0.0-11.0); Neutrophils Percent Auto 59.5 % (42.0-72.0); Platelet Count* 128 K/uL (140-440); RDW Coefficient of Variation % 13.1 % (11.5-15.5)
[2023-09-01 08:35] LABS: Slide Review Reflex No
[2023-09-01 08:46] LABS: Albumin* 4.6 g/dL (3.3-5.0)
[2023-09-01 08:47] LABS: Chloride* 103 mmol/L (96-114); Potassium* 3.6 mmol/L (3.6-5.1); Sodium* 138 mmol/L (135-149)
[2023-09-01 08:49] LABS: Alkaline Phosphatase* 112 U/L (40-150); Anion Gap 8 mEq/L (7-15); Aspartate Amino Transferase* 49 U/L (12-35); Blood Urea Nitrogen* 25 mg/dL (7-30); Carbon Dioxide* 27 mmol/L (20-32); Estimated Glomerular Filt Rate 61 ml/min; Total Protein* 7.6 g/dL (6.0-8.3)
[2023-09-01 08:50] LABS: Alanine Aminotransferase* 44 U/L (4-35); Glucose* 100 mg/dL (60-115)
[2023-09-01] MEDS: 0.9 % SODIUM CHLORIDE 250 ml IV (10:06)
[2023-09-01] MEDS: GRANISETRON 1 MG/ML inj IVP (10:06)
[2023-09-01] MEDS: dexAMETHasone 10 MG in 0.9 % SODIUM CHLORIDE 100 ml 100 ML 404 MG IVPB (10:06)
[2023-09-01] MEDS: HEPARIN 500 UNIT/5 ML SYRINGE IVF (10:07)
[2023-09-01] MEDS: SODIUM CHLORIDE 0.9 % (FLUSH) 10 ML SYRINGE IVF (10:07)
[2023-09-22 09:15] LABS: Basophils Percent Auto 0.5 % (0.0-3.0); Eosinophils Percent Auto 2.4 % (0.0-7.0); Hematocrit 39.8 % (33.0-51.0); Lymphocytes Percent Auto 23.2 % (20-44); Mean Corpuscular HGB Conc 35 gm/dL (32-36); Mean Corpuscular Hemoglobin 31 pg (26-34); Mean Corpuscular Volume 88 fL (80-100); Monocytes Percent Auto 13.5 % (0.0-11.0); Neutrophils Percent Auto 60.4 % (42.0-72.0); Platelet Count* 125 K/uL (140-440); RDW Coefficient of Variation % 13.3 % (11.5-15.5); Red Blood Count 4.52 m/uL (4.00-5.20); White Blood Count* 3.79 K/uL (4.50-11.00)
[2023-09-22 09:18] LABS: Slide Review Reflex No
[2023-09-22 09:21] VITALS: BP 136/84; PULSE 69; RESP 16; TEMP 36.4; O2SAT 98
[2023-09-22 09:29] LABS: Albumin* 4.5 g/dL (3.3-5.0)
[2023-09-22 09:30] LABS: Chloride* 106 mmol/L (96-114); Potassium* 3.7 mmol/L (3.6-5.1); Sodium* 140 mmol/L (135-149)
[2023-09-22 09:32] LABS: Anion Gap 5 mEq/L (7-15); Aspartate Amino Transferase* 56 U/L (12-35); Carbon Dioxide* 29 mmol/L (20-32); Creatinine* 0.9 mg/dL (0.5-1.5); Est. Creatinine Clearance* 47.78; Estimated Glomerular Filt Rate 69 ml/min; Total Protein* 7.6 g/dL (6.0-8.3)
[2023-09-22 09:33] LABS: Alanine Aminotransferase* 46 U/L (4-35); Alkaline Phosphatase* 106 U/L (40-150); Blood Urea Nitrogen* 17 mg/dL (7-30); Calcium* 9.9 mg/dL (8.4-10.6); Glucose* 95 mg/dL (60-115)
--- NOTE | 2023-09-22 09:55 | ONC.NURNOTE ---
Kadcyla dose calculated and reviewed.
[2023-09-22] MEDS: dexAMETHasone 10 MG in 0.9 % SODIUM CHLORIDE 100 ml 100 ML 404 MG IVPB (10:12)
[2023-09-22] MEDS: GRANISETRON 1 MG/ML inj IVP (10:12)
[2023-09-22] MEDS: 0.9 % SODIUM CHLORIDE 250 ml IV (10:12)
[2023-09-22] MEDS: HEPARIN 500 UNIT/5 ML SYRINGE IVF (11:13)
[2023-09-22] MEDS: SODIUM CHLORIDE 0.9 % (FLUSH) 10 ML SYRINGE IVF (11:13)
[2023-10-12 08:57] LABS: Basophils Percent Auto 0.5 % (0.0-3.0); Hemoglobin* 14.4 gm/dL (12.0-16.0); Lymphocytes Percent Auto 18.3 % (20-44); Mean Corpuscular HGB Conc 35 gm/dL (32-36); Mean Corpuscular Hemoglobin 31 pg (26-34); Mean Corpuscular Volume 87 fL (80-100); Monocytes Percent Auto 12.7 % (0.0-11.0); Neutrophils Percent Auto 66.5 % (42.0-72.0); Platelet Count* 113 K/uL (140-440); RDW Coefficient of Variation % 13.1 % (11.5-15.5); Red Blood Count 4.69 m/uL (4.00-5.20); White Blood Count* 3.94 K/uL (4.50-11.00)
[2023-10-12 09:01] LABS: Slide Review Reflex No
[2023-10-12 09:10] LABS: Albumin* 4.9 g/dL (3.3-5.0); Chloride* 108 mmol/L (96-114); Potassium* 3.7 mmol/L (3.6-5.1); Sodium* 139 mmol/L (135-149)
[2023-10-12 09:12] LABS: Bilirubin Total* 1.2 mg/dL (0.1-1.5); Creatinine* 0.9 mg/dL (0.5-1.5); Est. Creatinine Clearance* 47.78; Estimated Glomerular Filt Rate 69 ml/min
[2023-10-12 09:13] LABS: Alanine Aminotransferase* 49 U/L (4-35); Alkaline Phosphatase* 123 U/L (40-150); Anion Gap 6 mEq/L (7-15); Aspartate Amino Transferase* 59 U/L (12-35); Blood Urea Nitrogen* 23 mg/dL (7-30); Calcium* 9.8 mg/dL (8.4-10.6); Carbon Dioxide* 25 mmol/L (20-32); Glucose* 99 mg/dL (60-115); Total Protein* 7.8 g/dL (6.0-8.3)
[2023-10-12] MEDS: HEPARIN 500 UNIT/5 ML SYRINGE IVF (09:56)
[2023-10-12] MEDS: SODIUM CHLORIDE 0.9 % (FLUSH) 10 ML SYRINGE IVF (09:56)
[2023-10-12] MEDS: GRANISETRON 1 MG/ML inj IVP (09:56)
[2023-10-12] MEDS: 0.9 % SODIUM CHLORIDE 250 ml IV (09:56)
[2023-10-12] MEDS: dexAMETHasone 10 MG in 0.9 % SODIUM CHLORIDE 100 ml 100 ML 404 MG IVPB (09:56)
== END 2024-01-15 23:59 | disposition home or self-care (01) ==
LOC: CCIC 09:10
PROVIDERS: Clinical Nurse Specialist; PCP Emergency Medicine; Referring Provider Emergency Medicine; Visit Provider Physician Assistant
DX: C50.911 Malignant neoplasm of unspecified site of right female breast (principal); Z17.0 Estrogen receptor positive status [ER+]; C77.3 Secondary and unspecified malignant neoplasm of axilla and upper limb lymph nodes; Z79.811 Long term (current) use of aromatase inhibitors; M85.80 Other specified disorders of bone density and structure, unspecified site; R79.89 Other specified abnormal findings of blood chemistry; G62.9 Polyneuropathy, unspecified
CPT/HCPCS: 36415; 36591; 80053; 85025; 96376; 96413; 99214; 99215; G0463; J1100; J1626; J1642; J7050; J9354

== ENCOUNTER 2024-06-06 07:59 | Outpatient (CLI) | payer MEDICARE, BC, SELFPAY ==
--- NOTE | 2024-06-06 08:15 | CRLHL7_ITS ---
For Patients: As a result of the Century Cures Act, medical imaging exams and procedure reports are released immediately into your electronic medical record. You may view this report before your referring provider. If you have questions, please contact your health care provider. BILATERAL SCREENING MAMMOGRAM WITH COMPUTER-AIDED DETECTION AND TOMOSYNTHESIS TECHNIQUE: CC and MLO views were obtained. These mammographic images have been obtained using full-field digital technique. These mammographic images were interpreted with the benefit of computer-aided detection. Breast Tomosynthesis was used in this interpretation. COMPARISON FILM: 06/03/23, 06/07/22. FINDINGS: There are scattered areas of fibroglandular density. IMPRESSION: There is no radiographic evidence for malignancy. ASSESSMENT: BI-RADS Category 1: Negative RECOMMENDATION: Routine screening mammogram in 1 year. A lay language report of this examination will be provided to the patient. Moses Calzada M.D. Diagnostic Radiologist [email or web address] SP/Dictated by: Moses Calzada MD @ 06/06/2024 11:28:00 AM (Electronically Signed)
== END 2024-06-06 08:00 | disposition home or self-care (01) ==
LOC: MAMMO 08:01
PROVIDERS: PCP Emergency Medicine; Visit Provider Emergency Medicine
DX: Z12.31 Encounter for screening mammogram for malignant neoplasm of breast (principal)
CPT/HCPCS: 77063; 77067

== ENCOUNTER 2024-07-04 08:45 | Outpatient (CLI) | payer MEDICARE, BC, SELFPAY | END 2024-07-04 08:46 | disposition home or self-care (01) | PROVIDERS: PCP Emergency Medicine; Visit Provider Emergency Medicine | DX: R73.01 Impaired fasting glucose (principal); G62.89 Other specified polyneuropathies; I10 Essential (primary) hypertension; E78.2 Mixed hyperlipidemia; R53.83 Other fatigue; Z13.29 Encounter for screening for other suspected endocrine disorder; M85.80 Other specified disorders of bone density and structure, unspecified site | CPT/HCPCS: 80048; 80061; 82306; 82607; 84443 ==

== ENCOUNTER 2024-09-11 09:30 | Outpatient (RCR) | payer MEDICARE, BC, SELFPAY ==
[2024-03-19 08:31] LABS: Basophils Absolute Auto 0.02 K/uL (0.00-0.30); Basophils Percent Auto 0.4 % (0.0-3.0); Eosinophils Absolute Auto 0.09 K/uL (0.00-0.50); Eosinophils Percent Auto 1.7 % (0.0-7.0); Hematocrit 40.8 % (33.0-51.0); Hemoglobin* 14.3 gm/dL (12.0-16.0); Immature Granulocytes Abs Auto 0.02 K/uL (0.00-0.30); Immature Granulocytes Pct Auto 0.4 %; Lymphocytes Absolute Auto 1.09 K/uL (0.90-2.90); Lymphocytes Percent Auto 20.4 % (20-44); Mean Corpuscular HGB Conc 35 gm/dL (32-36); Mean Corpuscular Hemoglobin 31 pg (26-34); Mean Corpuscular Volume 90 fL (80-100); Monocytes Percent Auto 9.3 % (0.0-11.0); Neutrophils Absolute Auto 3.63 K/uL (1.7-7.0); Neutrophils Percent Auto 67.8 % (42.0-72.0); Platelet Count* 186 K/uL (140-440); RDW Coefficient of Variation % 12.7 % (11.5-15.5); Red Blood Count 4.56 m/uL (4.00-5.20); White Blood Count* 5.35 K/uL (4.50-11.00)
[2024-03-19 08:35] LABS: Slide Review Reflex No
[2024-03-19 08:49] LABS: Albumin* 4.7 g/dL (3.3-5.0); Chloride* 102 mmol/L (96-114); Potassium* 4.1 mmol/L (3.6-5.1); Sodium* 140 mmol/L (135-149)
[2024-03-19 08:52] LABS: Alanine Aminotransferase* 25 U/L (4-35); Alkaline Phosphatase* 106 U/L (40-150); Anion Gap 11 mEq/L (7-15); Aspartate Amino Transferase* 32 U/L (12-35); Bilirubin Total* 1.1 mg/dL (0.1-1.5); Blood Urea Nitrogen* 24 mg/dL (7-30); Calcium* 9.9 mg/dL (8.4-10.6); Carbon Dioxide* 27 mmol/L (20-32); Estimated Glomerular Filt Rate 61 ml/min; Glucose* 102 mg/dL (60-115); Total Protein* 7.7 g/dL (6.0-8.3)
== END 2024-09-15 23:59 | disposition home or self-care (01) ==
LOC: CCIC 09:30
PROVIDERS: Physician Assistant; PCP Emergency Medicine; Referring Provider Emergency Medicine; Visit Provider Internal Medicine Hematology & Oncology
DX: C50.911 Malignant neoplasm of unspecified site of right female breast (principal); Z17.0 Estrogen receptor positive status [ER+]; C77.3 Secondary and unspecified malignant neoplasm of axilla and upper limb lymph nodes; M85.80 Other specified disorders of bone density and structure, unspecified site; G62.89 Other specified polyneuropathies; Z79.811 Long term (current) use of aromatase inhibitors; R19.7 Diarrhea, unspecified; R11.0 Nausea
CPT/HCPCS: 36415; 80053; 85025; 99214; 99215; G0463

== ENCOUNTER 2024-11-28 09:00 | Outpatient (RCR) | payer MEDICARE, BC, SELFPAY ==
[2024-09-12 08:47] VITALS: BMI 33.5
[2024-09-12 10:44] VITALS: BMI 33.5
--- NOTE | 2024-09-12 10:45 | OT.OPLE2 ---
OT Outpatient Lymphedema Eval* OT Outpatient Lymphedema Eval* Start: 09/12/24 08:47 Freq: Status: Active Protocol: Document 09/12/24 08:47 TYSON (Rec: 09/12/24 10:44 TYSON [id number]) E-signed By Linda Doss, OTR/L, CLT OT Outpatient Evaluation Details Type Type Eval Complexity Medium Insurance Information Insurance Information Insurance Information Blue Cross/Blue Shield, Medicare B Other Insurance Medicare Replacement Plan Height and Weight Height Height 167.3 cm Weight Weight 93.8 kg Weight Measurement Method Per H & P BMI Body Mass Index (kg/m?) 33.5 BMI Classification Obese Obesity Class I OT OP Lymphedema Evaluation Current Condition/Medical Diagnosis Referring Provider Dr. Chen Zambrano M.D. Medical Diagnoses G62.89 Other Specified Polyneuropathies C50.911 - Malignant neoplasm of unspecified site of right female breast Treatment Diagnosis C77.3 - Secondary and unspecified malignant neoplasm of axilla and upper limb lymph nodes M79.621 Pain in right upper arm Invasive ductal carcinoma of breast: Staging cT2 cN1 cM0 Stage Group: IB Date Of Onset Cancer dx: 06/11/2022 (IB T2N1M0 right breast cancer) Medical History Medical History Comments Fatigue (Acute) R53.83 LFT elevation (Acute) R79.89 Aromatase inhibitor use (Acute ) Z79.811 Screening for diabetes mellitus (Acute) Z13.1 Osteopenia (Acute) M85.80 Hypokalemia (Acute) E87.6 Chemotherapy-induced fatigue ( Acute) R53.83, T45.1X5A Nasolacrimal duct stenosis ( Acute) H04.559 Peripheral neuropathy (Acute) G62.9 Nausea (Resolved) R11.0 Diarrhea (Acute) R19.7 Pre-diabetes (Acute) R73.03 Elevated fasting glucose ( Acute) R73.01 Pre-op exam (Resolved) Z01.818 Mild intermittent asthma ( Acute) J45.20 Secondary malignancy of lymph nodes of upper extremity ( Acute) C77.3 Invasive ductal carcinoma of breast (Acute) C50.919 Urine test positive for microalbuminuria (Acute) R80.9 History of partial thyroidectomy (Acute) E89.0 Depression (Acute) F32.A Asthma (Acute) J45.909 Hyperlipidemia, unspecified ( Acute) E78.5 Unspecified asthma, uncomplicated (Acute) J45.909 Major depressive disorder, single episode, unspecified ( Acute) F32.9 Anxiety (Acute) F41.9 Hypertension (Acute) I10 Surgical History Surgical History S/P lumpectomy, right breast Z98.890 - Other specified postprocedural states (ICD-10) S/P partial thyroidectomy E89.0 - Postprocedural hypothyroidism (ICD-10) Medications Medications NEW 09/11/24: gabapentin 300 mg PO QHS 30 caps 3RF G62 .89 - Other specified polyneuropathies albuterol sulfate 90 mcg/ actuation (Ventolin HFA) 2 puffs inhalation Q4H PRN anastrozole 1 mg PO QDAY atorvastatin 20 mg PO QPM calcium carbonate-vitamin D3 600 mg-12.5 mcg (500 unit) ( Calcium with Vit D3) 1 cap PO BIDWMEAL losartan 50 mg PO QDAY multivitamin 1 tab PO QAM PRN vitamin B complex 1 tab PO QDAY PRN Family History Family History of Lymphedema Yes Family History of Lymphedema Comments Sister had Breast Ca Current Work Status Current Work Status Retired Current Work Status Comments 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 The following is copied from the provider chart : Patient is here for routine follow-up visit today. She indicates her quality of life is extremely poor on Arimidex which she started around 2022. She is compliant with Arimidex calcium and vitamin-D . She describes herself as feeling like 79 years old even though she is 69. Also endorses having neuropathy, primarily in her right hand ( but it is in both UE's and always in bilateral LE's), describes it as pain/tingling numbness/cold sensitivity. 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 Living Situation Current Living Situation Home With Spouse Or SO Current Living Situation Comments Lives with spouse Yehuda in [place], [place] [facility] [place], loves to garden (velez and veggies). Patient Difficulties Patient Difficulties Comments Can still do her fine motor/ coordination tasks but it takes concentration and a mental load. Impairments Impairments Difficulties With ADLs Impairments Comments Pain/discomfort in the R UE Waking up in the middle of the night Patient: I think I may be getting carpal tunnel in this Right Hand Problem List Problem List Comments 06/07/2022: Diagnostic mammogram completed, noting asymmetry at the 6 o'clock position in the right breast, proceeded with ultrasound 06/11/2022: Ultrasound guided biopsy completed, noting an invasive ductal carcinoma with micro papillary features, 6 o 'clock position of the right breast, 9 cm from the nipple -[place] grade: III of III -angiolymphatic invasion: Suspicious -DCIS: Present *Ancillary Testing: -estrogen receptor: Positive (99%, strong staining) -progesterone receptor: Positive (3%, moderate staining) -HER2 by IHC: Positive (3+, by manual morphometry) *Axillary LN testing: -metastatic carcinoma to lymph node 7 mm. Negative for extracapsular extension *Clinical stage IB T2N1M0 right breast cancer 06/17/2022: Bilateral MRI breast: Irregular mass enhancement RIGHT breast 6 o` clock at the inframammary fold region measures 2.3 cm in greatest dimension and may involve dermis. No evidence for malignancy elsewhere RIGHT breast or contralateral LEFT breast. 2. Known RIGHT axillary metastatic involvement. 06/23/2022: Surgical consultation w/ Dr. Lowery 06/24/2022: Medical oncology consultation for discussion surrounding neoadjuvant treatment 07/08/2022 - 10/21/2022: neoadjuvant docetaxel/ carboplatin/Herceptin/Perjeta (TCHP) with neulasta support - neulasta held with cycles 2 and 3 for leukocytosis - dose reduction taxotere/ pertuzumab 20% with cycle 4 for diarrhea and neuropathy - dose reduction taxotere/ pertuzumab 50% with cycle 5 for diarrhea, nausea, fatigue - 10/21/2022: Cycle 6. Taxotere given at 50% of original dose. Pertuzumab not given. Carboplatin and herceptin given at original doses; adjusted for weight loss. 11/18/2022: right breast lumpectomy and axillary sentinel lymph node dissection - Residual invasive ductal carcinoma grade 2, size 20 mm, tumor bed changes present measuring 24 into 23 in 216 mm . Residual ductal carcinoma in Situ present. Margins invasive carcinoma is <1 mm from the medial lateral inferior and posterior margins . DCIS is less than 1 mm from superior margin over 10 mm area. ER positive 99% IA positive 3%, HER2 IHC positive 3+. Seven lymph nodes negative from the right axilla. Additional tissue excision from right axilla negative metastatic malignancy with treatment effect present. Resection specimen shows residual tumor that appears similar but with less mitoses unless nuclear atypia when compared to the original tumor . The residual tumor spans 20 * 11 mm with cellularity of approximately 1%. - [id number] 01/05/23 Cycle 1 adjuvant ado- trastuzumab emtansine (Kadcyla ). - 12/31/22 Echocardiogram estimated EF 65-70% -12/27/22 to 01/20/23: High tangents radiotherapy to the right breast initiated on December 27, 2022; anticipated date of completion is on January 20, 2023 03/03/2023 DEXA scan consistent with osteopenia, 10 year fracture risk 9.2% and hip fracture at 1.0% 03/09/2023 anastrozole starting 10/12/2023 cycle 14. Of TDM1 Exercise History Does Patient Exercise Regularly Yes Exercise Comments [facility] their ([facility] [employer] in [facility]: [facility]IL) 3-4 days/week Chair Yoga, Walking 3-4 times per week she walks around the pond in her neighborhood which is about 1 mile (doesn't do durations longer than this, hits her fatigue level after this). Pain Pain Yes Pain Comments R UE-Chronic Pain since Chemo and radiation treatments ( starting in 2022) Level varies throughout the day -11/29 ROM/Strength ROM/Strength Comments R UE AROM is WNL but she reports tightness & being uncomfortable in the R shoulder at end ranges-flexion >165 degrees Right Shell Trim Operator: 50 lbs, 45 lbs Lateral Pinch 14 lbs, 3 pt 14 lbs Left Shell Trim Operator: 55 lb, 47 lbs Lateral Pinch 12 lbs, 3 pt 10 lbs L UE AROM is WNL Previous Treatment Previous Treatment/Current Home Program No DX of Lymphedema Compression History Does Patient Currently Wear Compression No During Daytime Does Patient Currently Wear Compression No At Night Current Swelling (Location/Pitting/Texture) Pitting Scale: 0 = No pitting 1+ Tissue returns to normal almost immediately 2+ Tissue returns after 15-30 seconds 3+ Tissue returns after 1-1/2 minutes 4+ Tissue returns after 2-3 minutes N/A Tissue no longer pits due to induration Tissue texture: Soft or indurated Clinical Presentation Area Breasts: Bilaterally, breasts are without suspicious palpable mass or nodule. Right breast is significant for post radiation changes to the skin. Patient did not recall the exact number of radiation treatments but she thought it could be 20 (from her provider's note: (12/27/22 to 01/20/23: High tangents radiotherapy to the right breast initiated on December 27, 2022; anticipated date of completion is on January 20, 2023). No obvious lymphedema on exam today. No erythema or warmth appreciated. Lymph: Bilaterally, no palpable axillary, cervical, supraclavicular, submandibular lymphadenopathy was palpated on exam. Patient's measurements from R to L UE were only .1 cm different in size Circumferential Measurements Upper Extremity Left Upper Extremity Base of Third Finger (in cm) 6 MCP (in cm) 20.2 Palm (in cm) 20.4 Smallest Wrist Measurement (in cm) 17.9 10 cm Above Smallest Wrist Measurement 23.8 20 cm Above Smallest Wrist Measurement 29.5 30 cm Above Smallest Wrist Measurement 37.7 40 cm Above Smallest Wrist Measurement 38.5 Total Girth in cm 194.0 Right Upper Extremity Base of Third Finger (in cm) 6.2 MCP (in cm) 19.5 Palm (in cm) 20.4 Smallest Wrist Measurement (in cm) 18 10 cm Above Smallest Wrist Measurement 24 20 cm Above Smallest Wrist Measurement 30.1 30 cm Above Smallest Wrist Measurement 37.7 40 cm Above Smallest Wrist Measurement 38.2 Total Girth in cm 194.1 Assessment Assessment 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 Patient does not have Lymphedema in the R UE, her chief compliant is neuropathy in the R hand ( worse distal than proximal). This tends to wake her up at night and cause an all day irritation for her. She hasn' t been dropping items out of the L hand (but she is R hand dominant). Her Neuropathy is also present in the L UE, and bilateral feet. She states her symptoms are not as bad in these other limbs and would like to focus her treatment in the L UE. Overall patient is doing a good job at being active, participating in the ( SAIL program) at the [facility], doing chair Yoga and walking around the pond in her neighborhood 4x/week. Her 30 Second Chair Stand Test was 15 reps in 30 seconds which does not put her in a fall risk category. The goal for a female between the ages 70-74 years old is >10. She reports no falls in the last year, she ambulates without a device w/ o any unsteadiness noted at a normal pace. Patient is Indep with her ADLs/IADLs and still driving. She resides in a home in [place] with her spouse Yehuda. Patient Goals Patient Goals To decrease the pain and discomfort in my R UE To be able to reach with the R arm without pain/discomfort To not wake up in the middle of the night with burning/ tingling sensations in the R UE Short Term Goals (# of Weeks) 8 Short Term Goals 1. After 3 treatment sessions, patient will be able to verbalize 6 adaptive strategies to protect joint integrity to have less pain with ADL/IADL & leisure activities. 2. Patient will complete pain free right shoulder flexion from 90-180 degrees with adequate scapulae depression and rotation to enable performance of overhead reaching activities in cabinets for independent IADLs 3. With patient attending therapy sessions 1-2x/week, therapist will use modalities & manual treatment allowing patient to have increased active movement in the R UE ( without increased pain symptoms) when participating in leisure activities ( exercise and gardening). Antisubmarine Weapons Officer Goals (# of Weeks) 12 Halfway Goals 4. Patient to sleep uninterrupted for 6 hours without being awakened by her pain in the R UE to allow her to perform ADL?s without fatigue. 5. From EVAL score on The Upper Extremity Functional Index (UEFI) patient will have a change in score by >9 points in order to show significant change in UE function to better her ADL, IADL and leisure performance. (The highest possible score of 80. The lowest possible score is 0. A lower score indicates that the person is reporting increased difficulty with the activities). Treatment Plan Treatment Plan Evaluation,Joint Mobilization, Manual Therapy,Ultrasound, Wound Care/Scar Management, Therapeutic Exercise,Self-Care /Home Management,Education Other Treatment Plan 30 Second Chair Sit to Stand Test (w/o use of bilateral UE' s) patient scored 15 reps in 30 seconds Functional Reach Test: 12 inches (low risk for falling) Expected Frequency 1-2x Week Expected Duration 12 Certification Certification Statement I Certify That: Therapy Services Provided, Therapy Plan Established, Therapy Plan Reviewed Certification Information Clinic ID # [id number] Initial Certification Date 09/12/24 Recertification Due Date 12/11/24 Provider Signature Required Yes Provider Signature Shows Agreement With POC & Medical Necessity Physician NPI Number Write NPI# Here Physician Comment/Change Comment or Changes Physician Signature & Date Requested Please Sign/Date Here
[2024-09-19 10:34] VITALS: BMI 33.5
[2024-09-26 08:40] VITALS: BMI 33.5
[2024-10-03 10:34] VITALS: BMI 33.5
[2024-10-10 09:17] VITALS: BMI 33.5
[2024-10-17 10:52] VITALS: BMI 33.5
== END 2025-01-14 15:20 | disposition home or self-care (01) ==
PROVIDERS: PCP Emergency Medicine; Visit Provider Internal Medicine Hematology & Oncology
DX: G62.89 Other specified polyneuropathies (principal); C50.911 Malignant neoplasm of unspecified site of right female breast; C77.3 Secondary and unspecified malignant neoplasm of axilla and upper limb lymph nodes; M79.621 Pain in right upper arm; Z51.89 Encounter for other specified aftercare
CPT/HCPCS: 97110; 97140; 97166; X5282

== ENCOUNTER 2024-12-31 08:51 | Outpatient (CLI) | payer MEDICARE, BC, SELFPAY ==
--- NOTE | 2024-12-31 12:38 | P.ANES_ITS ---
Anesthesia Charges Start Date/Time Anesthesia Start Date: 12/31/24 Anesthesia Start Time: 10:19 Stop Date/Time Anesthesia Stop Date: 12/31/24 Anesthesia Stop Time: 10:47 Summary Extremes of Age - Over 70 or under 1: MDA Coding CPT Codes CPT Codes: ANES LWR INTST NDSC NOS - 39070 ([id number]) P2 - PATIENT W/MILD SYST DISEASE, QK - SYSTEMS DESIGNER 2-4 CNCRNT ANES PROC, QX - PARKING METER SERVICER SVC W/ MD MED DIRECTION Additional Codes: Summary - Extremes of Age - Over 70 or under 1: MDA ([id number])
--- NOTE | 2024-12-31 12:38 | W.ANESCHARGE ---
Anesthesia Charges Start Date/Time Anesthesia Start Date: 12/31/24 Anesthesia Start Time: 10:19 Stop Date/Time Anesthesia Stop Date: 12/31/24 Anesthesia Stop Time: 10:47 Summary Extremes of Age - Over 70 or under 1: MDA Coding CPT Codes CPT Codes: ANES LWR INTST NDSC NOS - 43378 ([id number]) P2 - PATIENT W/MILD SYST DISEASE, QK - SCALEHOUSE ATTENDANT 2-4 CNCRNT ANES PROC, QX - PLC TECHNICIAN SVC W/ MD MED DIRECTION Additional Codes: Summary - Extremes of Age - Over 70 or under 1: MDA ([id number])
--- NOTE | 2024-12-31 13:19 | P.ANES_ITS ---
Anesthesia Charges Start Date/Time Anesthesia Start Date: 12/31/24 Anesthesia Start Time: 10:19 Stop Date/Time Anesthesia Stop Date: 12/31/24 Anesthesia Stop Time: 10:47 Summary Extremes of Age - Over 70 or under 1: JOURNEYMAN PAINTER Coding CPT Codes CPT Codes: ORAL LWR INTST NDSC NOS - 81536 ([id number]) P2 - PATIENT W/MILD SYST DISEASE, QK - MECHANICAL APPRENTICE 2-4 CNCRNT ANEBooker PROC, QX - JOURNEYMAN PAINTER SVC W/ MD MED DIRECTION Additional Codes: Summary - Extremes of Age - Over 70 or under 1: JOURNEYMAN PAINTER ([id number])
--- NOTE | 2024-12-31 13:19 | W.ANESCHARGE ---
Anesthesia Charges Start Date/Time Anesthesia Start Date: 12/31/24 Anesthesia Start Time: 10:19 Stop Date/Time Anesthesia Stop Date: 12/31/24 Anesthesia Stop Time: 10:47 Summary Extremes of Age - Over 70 or under 1: TRANSPORTATION DISPATCH MANAGER Coding CPT Codes CPT Codes: ORAL LWR INTST NDSC NOS - 61623 ([id number]) P2 - PATIENT W/MILD SYST DISEASE, QK - NECK BAND MAKER 2-4 CNCRNT ANEBooker PROC, QX - TRANSPORTATION DISPATCH MANAGER SVC W/ MD MED DIRECTION Additional Codes: Summary - Extremes of Age - Over 70 or under 1: TRANSPORTATION DISPATCH MANAGER ([id number])
== END 2024-12-31 08:52 | disposition home or self-care (01) ==
LOC: OP CLINIC 08:51
PROVIDERS: PCP Emergency Medicine; Visit Provider Surgery
DX: Z12.11 Encounter for screening for malignant neoplasm of colon (principal); D12.3 Benign neoplasm of transverse colon; K57.30 Diverticulosis of large intestine without perforation or abscess without bleeding
CPT/HCPCS: 00811; 00812; 45385; 88305; 99100; J2704

== ENCOUNTER 2025-01-02 06:57 | Outpatient (CLI) | payer MEDICARE, BC, SELFPAY ==
--- NOTE | 2025-01-02 07:15 | CRLHL7_ITS ---
For Patients: As a result of the Century Cures Act, medical imaging exams and procedure reports are released immediately into your electronic medical record. You may view this report before your referring provider. If you have questions, please contact your health care provider. INDICATION: Worsening neck/shoulder pain. Neuropathy. TECHNIQUE: Thoracic spine MRI with contrast. 20 cc of Dotarem gadolinium based contrast administered. COMPARISON: None. FINDINGS: Normal alignment and curvature of the thoracic spine. No acute fracture or aggressive marrow lesion. T12 vertebral body hemangioma. No cord signal abnormality. No intraspinal mass or pathologic intraspinal enhancement. No significant abnormalities of the mediastinal, paraspinous or retroperitoneal soft tissues. Disc/endplates: Advanced disc height loss, disc desiccation and Schmorl`s node deformities at C6-7 through L1-2. Mild disc degeneration elsewhere. Type 1 reactive subchondral edema at T6-7, T8-9 and minimally at T9-10. Findings at individual levels as follows: T1-2, T2-3, T3-4 and T4-5: Very shallow disc protrusions which flatten the thecal sac without spinal canal stenosis. Multilevel facet arthrosis and foraminal height loss contributes to mild neural foraminal stenosis at T3-4, T4-5 on the right. T5-6: A right central protrusion which contacts the ventral cord without spinal canal stenosis. Right-sided facet arthrosis with moderate right neural foraminal stenosis. No left neural foraminal stenosis or spinal canal stenosis. T6-7: A right central disc extrusion with caudal migration contacts the ventral cord. Mild spinal canal stenosis. No neural foraminal stenosis. T7-8: A tiny right central protrusion flattens the thecal sac. Bilateral facet arthrosis. No spinal canal or neural foraminal stenosis. T9-10: Shallow disc osteophyte complex. Bilateral facet arthrosis. Mild right and moderately advanced left neural foraminal stenosis. No spinal canal stenosis. T10-11: Shallow disc osteophyte complex. Bilateral facet arthrosis. Mild spinal canal stenosis, mild right and moderate left neuroforaminal stenosis. T11-12: Trace anterolisthesis. Shallow disc osteophyte complex. Bilateral facet arthrosis. No spinal canal or neural foraminal stenosis. T12-L1: Shallow disc osteophyte complex with right central extrusion demonstrating cranial migration. No spinal canal or neural foraminal stenosis. L1-2: Trace retrolisthesis. Shallow disc osteophyte complex, asymmetric to the right. A superimposed right subarticular medial foraminal protrusion. Bilateral facet arthrosis. [id number] right neural foraminal stenosis. No left neural foraminal stenosis or spinal canal stenosis. IMPRESSION: 1. No acute fracture or marrow replacing process. Benign hemangioma at T12 is noted. 2. No high-grade spinal canal stenosis or extrinsic cord deformity at any thoracic level. Disc herniations at T5-6 and T6-7 contact the cord without deforming it. Mild spinal canal stenosis at T10-11. 3. Multilevel neural foraminal stenosis throughout the thoracic spine. Moderately advanced at T9-10 on the left, moderate at several additional levels as detailed above and low-grade elsewhere. 4. Advanced disc degeneration throughout the mid to lower thoracic spine. Type 1 reactive subchondral edema at T6-7, T8-9 and T9-10. Dictated by Randy Odell MD @ 01/03/2025 1:08:51 PM (Electronically Signed)
--- NOTE | 2025-01-02 08:15 | CRLHL7_ITS ---
For Patients: As a result of the Century Cures Act, medical imaging exams and procedure reports are released immediately into your electronic medical record. You may view this report before your referring provider. If you have questions, please contact your health care provider. INDICATION: Worsening neck pain. Radiculopathy. TECHNIQUE: Cervical spine MRI with and without contrast. 20 cc of Dotarem gadolinium based intravenous contrast agent was used. COMPARISON: : None. FINDINGS: : Mild cervical kyphosis. No recent compression fracture or marrow replacing process. Posterior fossa structures are normal. Stir hyperintensity involving the cord substance at C4-5, with subtle associated cystic change. There is also ovoid enhancement within the cord on the right. No extraspinal soft tissue abnormalities. Discs/endplates: Moderate disc height loss disc desiccation and endplate remodeling at C6-7. Mild disc height loss and loss of normal hydration signal at C4-5 and C5-6. Minimal disc degeneration elsewhere. Trace type 1 reactive marrow edema involving the right C4-5 posterior endplates. Findings at individual levels as follows: Craniocervical junction: Alignment is maintained. C2-C3: Left uncovertebral and facet arthrosis with moderate left neural foraminal stenosis. No right neural foraminal stenosis or spinal canal stenosis. C3-C4: 2 millimeters anterolisthesis. Shallow disc osteophyte complex flattens the thecal sac without spinal canal stenosis. Bilateral uncovertebral and facet arthrosis with moderate bilateral neural foraminal stenosis and mild compression of the exiting C4 nerve roots. C4-C5: 2 millimeters anterolisthesis. Eccentric right-sided disc osteophyte complex which mildly flattens the ventral cord. Ligamentum flavum thickening. Overall moderate spinal canal stenosis. Bilateral uncovertebral and facet arthrosis with moderate left and advanced right neural foraminal stenosis. Compression of the exiting right C5 nerve root. Right-sided facet joint effusion. C5-C6: Broad-based disc osteophyte complex contacts the ventral cord. Rwly-kf-jhrfmmhi spinal canal stenosis. Bilateral uncovertebral and facet arthrosis with mild right and moderate left neural foraminal stenosis. C6-C7: Trace anterolisthesis. A shallow disc osteophyte complex which flattens the thecal sac. Ligamentum flavum buckling. Mild spinal canal stenosis. Bilateral uncovertebral arthrosis with moderate bilateral neural foraminal stenosis and mild compression of the exiting C7 nerve roots. C7-T1: Trace anterolisthesis. Bilateral facet arthrosis. Mild right and moderate left neural foraminal stenosis. No spinal canal stenosis. T1-2: Trace anterolisthesis. Left-sided facet arthrosis. Mild left neural foraminal stenosis. No right neural foraminal stenosis or spinal canal stenosis IMPRESSION: : 1. No acute fracture or marrow replacing process. 2. Within the cord at C4-5, there is patchy edema type signal abnormality with superimposed ovoid enhancement on the right. Findings are favored to represent spondylotic edema/myelomalacia. However, a demyelinating process or a cord metastasis not completely excluded. Consider short-term follow-up MRI to evaluate for interval change. 3. At C4-5, moderate spinal canal stenosis with right-sided disc osteophyte complex mildly flattening the ventral cord. Advanced right neural foraminal stenosis with compression of the exiting right C5 nerve root. Asymmetric right-sided reactive marrow edema involving the endplates as well as high-grade right-sided facet arthrosis with facet joint effusion. 4. Multilevel [id number] neural foraminal stenosis at additional cervical levels as detailed above. Dictated by Randy Odell MD @ 01/03/2025 12:56:16 PM (Electronically Signed)
== END 2025-01-02 06:58 | disposition home or self-care (01) ==
LOC: MRI 06:59
PROVIDERS: PCP Physician Assistant Medical; Visit Provider Physician Assistant
DX: C50.911 Malignant neoplasm of unspecified site of right female breast (principal); C77.3 Secondary and unspecified malignant neoplasm of axilla and upper limb lymph nodes; M54.12 Radiculopathy, cervical region; M48.02 Spinal stenosis, cervical region; M51.24 Other intervertebral disc displacement, thoracic region; M48.04 Spinal stenosis, thoracic region; M51.34 Other intervertebral disc degeneration, thoracic region; M54.2 Cervicalgia
CPT/HCPCS: 72156; 72157; A9575

== ENCOUNTER 2025-03-06 12:38 | Outpatient (CLI) | payer MEDICARE, BC, SELFPAY ==
--- NOTE | 2025-03-06 13:00 | CRLHL7_ITS ---
For Patients: As a result of the Century Cures Act, medical imaging exams and procedure reports are released immediately into your electronic medical record. You may view this report before your referring provider. If you have questions, please contact your health care provider. XR DXA BONE MINERAL DENSITY (BMD) Current height (in): 66.0. Weight (lb): 200.0. Menopause age: 51. Ethnicity: White. Reason for exam: USP (current) use of aromatase inhibitors. 1. Have you had a previous hip or vertebral fracture? No. 2. Have you had any fractures during your adult life which did not result from significant trauma (e.g., auto accident)? No. 3. Did either of your parents have a hip fracture? No. 4. Do you smoke? No. 5. Have you ever taken Glucocorticoids? No. 6. Do you have rheumatoid arthritis? No. 7. Do you have secondary osteoporosis? No. 8. Do you drink 3 or more alcoholic drinks per day? No. 9. Are you being treated for osteoporosis? No. 10. Have you ever taken any of the following medications: Actonel, Evista, Fosamax, Miacalcin, Reclast, Boniva, Forteo, HRT (i.e. estrogen/hormone therapy), Protelos, Prolia, Vitamin D, Calcium, other ??? please specify. ANSWER: Yes, calcium, vitamin D. 11. Do you have any of the following medical conditions: Anorexia or bulimia, asthma or emphysema, end stage renal disease, hyperparathyroidism, any seizure disorders, cancer, inflammatory bowel diseases, hysterectomy, other ??? please specify. ANSWER: Yes, asthma cancer. 12. What was your maximum height (inches)? 67. 13. Do you perform weight bearing exercise regularly? Yes. 14. Do you regularly consume dairy products? Yes. 15. Do you drink caffeinated beverages? Yes. 16. At what age did your period start? 12. 17. Are you premenopausal? No. 18. How many full-term pregnancies have you had? 2. 19. Have you ever missed your period for more than 6 months in a row (not including or menopause)? No. TECHNIQUE: Bone mineral density study was performed using the [employer]. FINDINGS: The results of the study expressed as bone mineral density (BMD) are as follows: Lumbar spine L1 to L3: BMD: 1.006 g/cm2. T-score: -0.1. Z-score: 2.0 Neck Left: BMD: 0.669 g/cm2. T-score: -1.6. Z-score: 0.2 Right: BMD: 0.701 g/cm2. T-score: -1.3. Z-score: 0.5 Total Left: BMD: 0.784 g/cm2. T-score: -1.3. Z-score: 0.2 Right: BMD: 0.798 g/cm2. T-score: -1.2. Z-score: 0.3 IMPRESSION: Osteopenia. *Comparison exams done prior to 10/2019 were performed on different unit, [facility]. COMPARISON: Compared with scan of 03/03/2023, the bone mineral density has decreased by 3.8 percent at the spine and decreased by 2.9 percent at the hip. FRAX 10-year Fracture Risk Major Osteoporotic Fracture: 9.8 percent Hip Fracture: 1.5 percent Reported Risk Factors: [place] () Neck BMD = 0.669, BMI = 32.3 Moses Calzada M.D. Diagnostic Radiologist [email or web address] Transcribed: 10:21 am DW/Dictated by: Moses Calzada MD @ 03/11/2025 9:45:00 AM (Electronically Signed)
--- NOTE | 2025-03-06 13:45 | CRLHL7_ITS ---
For Patients: As a result of the Century Cures Act, medical imaging exams and procedure reports are released immediately into your electronic medical record. You may view this report before your referring provider. If you have questions, please contact your health care provider. INDICATION: Menorrhagia. Neuritis. Comparison 01/02/2025. TECHNIQUE: Sagittal T1, T2, and STIR sequences. Axial T2/gradient sequences.. Post gadolinium T1 weighted sequences. FINDINGS: Stable degenerative anterolisthesis of C3 on C4 and C4 on C5 measuring approximate 2 mm. Otherwise, normal facet alignment. No fractures. No vertebral body loss of height. No ligamentous injury. No suspicious osseous lesions. Compared to the previous exam, again noted is patchy T2 and STIR hyperintensity of the cord at the level of C4-5. Previously noted enhancement has resolved. Normal signal intensity within the remainder of the cord. Stable cervical spondylosis. C1-2: No spinal canal narrowing. C2-3: No spinal canal narrowing. Mild narrowing of left neural foramen. No narrowing of the right neural foramen. C3-4: No narrowing of the spinal canal. Moderate narrowing of bilateral foramina. C4-5: Disc generation broad-based disc osteophyte complex. Effacement of the ventral thecal sac. Moderate to severe narrowing of spinal canal. Moderate severe narrowing of bilateral foramina. Potential impingement of the C5 nerve roots. C5-6: Disc generation broad-based disc osteophyte complex. Mild narrowing of spinal canal. Moderate narrowing of bilateral foramina. C6-7: Disc degeneration. Mild narrowing of spinal canal. No neural foraminal narrowing. C7-T1: No spinal canal or neural foraminal narrowing. IMPRESSION: 1. Stable degenerative anterolisthesis of C3 on C4 and C4 on C5. Otherwise normal alignment. No fractures 2. Stable patchy T2 and STIR hyperintensity of the cord at C4-5. Previously noted patchy enhancement has resolved. Findings again may represent chronic myelomalacia, spondylotic myelopathy, or sequela of cord contusion. Chronic demyelination can not be excluded. 3. Normal signal intensity within the remainder of the cord 4. Stable cervical spondylosis 5. At C3-4, moderate narrowing of the bilateral neural foramina 6. At C4-5, moderate to severe narrowing of the spinal canal and bilateral neural foramina 7. At C5-6, moderate narrowing of the bilateral neural foramina Dictated by Lexa Finney MD @ 03/07/2025 11:36:57 AM (Electronically Signed)
== END 2025-03-06 12:39 | disposition home or self-care (01) ==
PROVIDERS: PCP Physician Assistant Medical; Visit Provider Internal Medicine Hematology & Oncology
DX: M79.2 Neuralgia and neuritis, unspecified (principal); M47.892 Other spondylosis, cervical region; M50.23 Other cervical disc displacement, cervicothoracic region; M50.221 Other cervical disc displacement at C4-C5 level; N92.0 Excessive and frequent menstruation with regular cycle; C50.911 Malignant neoplasm of unspecified site of right female breast; C77.3 Secondary and unspecified malignant neoplasm of axilla and upper limb lymph nodes; Z79.811 Long term (current) use of aromatase inhibitors; M85.89 Other specified disorders of bone density and structure, multiple sites
CPT/HCPCS: 72156; 77080; A9575

== ENCOUNTER 2025-05-22 08:06 | Outpatient (CLI) | payer MEDICARE, BC, SELFPAY | END 2025-05-22 08:07 | disposition home or self-care (01) | LOC: INJ CL 08:07 | PROVIDERS: PCP Physician Assistant Medical; Visit Provider Nurse Anesthetist, Certified Registered | DX: M54.2 Cervicalgia (principal); G89.29 Other chronic pain | CPT/HCPCS: 62321; J1100; Q9966 ==